=== PATIENT | male | born 1940 | race Caucasian/White ===

== ENCOUNTER 2021-01-26 14:04 | Outpatient (CLI) | payer OTHER, SELFPAY ==
--- NOTE | ~2021-01-26 | US_ITS ---
US art doppler w press LE BI INDICATION: Peripheral vascular disease. TECHNIQUE: Segmental pressures and plethysmographic and Doppler waveforms of the brachial and lower e xtremity arteries were obtained. COMPARISON: None. FINDINGS: Right and left brachial artery pressures of 141 mm Hg and 158 mm Hg, respectively, are concordant (no rmal difference <= 30 mmHg). The right ankle-brachial index (YVES) is 0.53 (normal >= 0.9-1.0). The right great toe-brachial index (TBI) is 0.46 (normal >= 0.60). The left YVES is 0.6. The left TBI is 0.47. IMPRESSION: 1. Diminished bilateral ankle and toe brachial indices, consistent with moderate peripheral arterial disease. Reviewed, dictated and finalized at location A. IMPRESSION: 1. Diminished bilateral ankle and toe brachial indices, consistent with moderat e peripheral arterial disease.
== END 2021-01-26 14:05 | disposition home or self-care (01) ==
PROVIDERS: PCP Emergency Medicine; Visit Provider Emergency Medicine
DX: I73.9 Peripheral vascular disease, unspecified (principal)
CPT/HCPCS: 93923

== ENCOUNTER 2021-06-25 18:20 | Inpatient (IN) | payer OTHER, SELFPAY ==
[2021-06-25] VITALS (15 sets, daily range): BP systolic 124–142; BP diastolic 58–79; PULSE 101–129; RESP 21–48; TEMP 39.6; O2SAT 89–100
--- NOTE | ~2021-06-25 | CT_ITS ---
EXAMINATION: CTA chest PE protocol DATE: 06/25/2021 20:24 INDICATION: Sudden onset of shortness of breath. Hypoxia. TECHNIQUE: Computed tomography angiography (CTA) of the chest was performed with 100 mL Omnipaque-350 intravenous contrast timed to evaluate the pulmonary arteries. Coronal maximum intensity projection 3D-reconstructions were created by the technologist. Automated exposure control and iterative reconst ruction technique were employed. Exam dose: 621.97 mGy-cm total exam DLP. COMPARISON: 06/25/2021 portable AP chest FINDINGS: There is diagnostic contrast enhancement of the pulmonary arteries and no evidence of pulmo nary embolism. No thoracic aortic aneurysm or dissection. Normal heart size. No pericardial or pleural effusion. Emphysematous changes of the lungs. Mild bilateral apical scarring. There is scattered discoid atelec tasis or scarring. No pulmonary consolidation. Large hiatal hernia. Approximately 1.8 cm cyst or possible hemangioma of the posterior aspect of the medial segment of the left lobe of the liver There is diffuse osteopenia. IMPRESSION: Emphysema No evidence of pulmonary embolism Reviewed, dictated and finalized at Location A. Reviewed, dictated and finalized at location A.
--- NOTE | ~2021-06-25 | XR_ITS ---
XR chest 1V portable DATE: 06/25/2021 18:55 INDICATION: Fever. Difficulty breathing. TECHNIQUE: Portable upright AP chest on 06/25/2021 at 1849 hours COMPARISON: 06/02/2013 two-view chest FINDINGS: Bilateral hyperinflation. No pulmonary infiltrate or consolidation, pleural effusion or pul monary or pneumothorax. Bilateral apical scarring. Normal heart size. Aortic arch calcification. Moderately large hiatal hernia. Diffuse osteopenia. IMPRESSION: No active cardiopulmonary disease Aortic calcification Moderately large hiatal hernia Osteopenia Reviewed, dictated and finalized at location A.
--- NOTE | ~2021-06-25 | CT_ITS ---
EXAMINATION: CT brain wo con DATE: 06/25/2021 20:24 INDICATION: Fall. Head injury. TECHNIQUE: Computed tomography (CT) of the head was performed without intravenous contrast. The mA wa s adjusted according to patient size. Iterative reconstruction technique was employed. Exam dose: 60 5.33 mGy-cm total exam DLP. COMPARISON: None FINDINGS: No intracranial mass lesion or hemorrhage or cerebrovascular accident. No midline shift or mass affect. Bilateral carotid siphon internal carotid artery calcifications. There is nonspecific diminished attenuation cerebral white matter, likely due to chronic small vessel ischemic changes. No subdural or epidural hematoma is detected. There is mild soft tissue thickening of the ethmoid air cells. There is a small fluid level in the le ft maxillary sinus. The included paranasal sinuses and mastoid air cells are otherwise unremarkable. No fracture or bone destruction of the cranial vault. IMPRESSION: Cerebral atherosclerosis and chronic small vessel ischemic changes of cerebral white mat ter No acute intracranial finding Reviewed, dictated and finalized at Location [facility]. Reviewed, dictated and finalized at location A. IMPRESSION: Cerebral atherosclerosis and chronic small vessel ischemic changes of cerebral white matter No acute intracranial finding
--- NOTE | ~2021-06-25 | XR_ITS ---
EXAMINATION: XR chest 1V portable INDICATION: Increased oxygen TECHNIQUE: Portable AP chest at 0514 hours COMPARISON: 06/25/2021 FINDINGS: There is mild atelectasis of the lung bases. The lungs are free of acute opacities. There i s no pleural effusion or pneumothorax. A large hiatal hernia is noted. The heart size is normal. IMPRESSION: 1. Mild atelectasis of the lung bases. Reviewed, dictated and finalized at location A.
--- NOTE | ~2021-06-25 | CT_ITS ---
EXAMINATION: CT abdomen pelvis w con EXAM DATE: 06/29/2021 12:45 INDICATION: E coli bacteremia, source unknown by history/exam. TECHNIQUE: Spiral CT of the abdomen and pelvis was performed following intravenous injection of 100 m L Omnipaque 350. Axial, coronal and sagittal images of the abdomen and pelvis were reviewed. The do se-length product (DLP) for this examination was 362.16 mGy-cm. The exposure was tailored according to patient size (auto mA exposure control), and iterative reconstruction (ASIR) was used as additiona l dose reduction technique. There is no prior study for comparison. FINDINGS: In the left liver lobe medial segment adjacent to the gallbladder fossa there is multi locu lated cystic region measuring 3 cm. This could be a small hepatic abscess with loculations particular ly given the history provided. Cystic liver tumor also in the differential diagnosis. There are gall stones within an otherwise unremarkable gallbladder. No evidence of obstructive biliary disease. There is mid abdominal aortic aneurysm up to 4.4 cm. This is below the renal arteries. Caliber normal izes from the iliac bifurcation. Portal and splenic veins are patent. Kidneys enhance symmetrically. There is no hydronephrosis. The prostate is unremarkable. The bladder is collapsed with Catalan ca theter balloon anchor inside. There is no retroperitoneal or pelvic lymphadenopathy. There is mode rate scattered arteriosclerotic disease. The appendix is normal. There is a moderate to large gastroesophageal hiatal hernia. There is expe cted amount of colonic stool. No free intraperitoneal gas. Small right pleural effusion. Adjacent subsegmental atelectasis. Moderate emphysema. Hyperinflation. There are no osteoblastic or osteolyt ic lesions identified. IMPRESSION: 1. Small multiloculated left liver lobe region most consistent with hepatic abscess. Cystic cancer n ot excludable. 2. 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 3. Moderate to large gastroesophageal hiatal hernia. 4. Emphysema and hyperinflation. Reviewed, dictated and finalized at location B. IMPRESSION: 1. Small multiloculated left liver lobe region most consistent with hepatic ab scess. Cystic cancer not excludable. 2. 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 3. Moderate to large gastroesophageal hiatal hernia. 4. Emphysema and hyperinflation.
--- NOTE | 2021-06-25 18:30 | ECG_ITS ---
Measurements Intervals [place] Rate: 72 P: 88 MO: 129 QRS: 201 QRSD: 121 T: 61 QT: 334 QTc: 367 Interpretive Statements SINUS TACHYCARDIA RIGHT BUNDLE BRANCH BLOCK LEFT POSTERIOR FASCICULAR BLOCK BASELINE ARTIFACT- I, II, AVR, AVF, V3-V6 ABNORMAL ECG Electronically Signed On 06-25-2021 20:19:11 CDT by Parker Mcgowan D.O.
[2021-06-25 18:59] LABS: Alveolar/Arterial O2 Gradient 125.4 mmHg; Base Excess ABG -2.2 mEq/l (+/-2.0); Carboxyhemoglobin 1.2 % THb (0-2.0); Fractional Inspired Oxygen 36 %; HCO3 ABG 21.3 mEq/l (22.0-26.0); Methemoglobin ABG 0.2 %THb (0-1.5); Oxygen Content ABG 18.4 %vol (16.0-22.0); Oxygen Saturation ABG 97.3 % (95.0-100.0); Oxyhemoglobin 95.7 % THb (90.0-100.0); PCO2 ABG 33.2 mmHg (35.0-45.0); PO2 ABG 92.8 mmHg (80.0-100.0); PO2 FiO2 Ratio Arterial Blood 2.58 %; Reduced Hemoglobin 2.9 %THb (0-5.0); Total Hemoglobin 13.6 g/dL (12.0-18.0); pH ABG 7.426 (7.350-7.450)
[2021-06-25 19:01] LABS: Device NASAL CANNULA; Hematocrit 41.9 % (42.0-52.0); Mean Corpuscular Hemoglobin 26.4 pg (26-34); Mean Corpuscular Volume 85.2 fl (80-100); Mean Platelet Volume 9.3 fl (7.4-10.4); Modified Allen's Test Pass; Platelet Count Result 148 k/mm3 (150-375); Red Blood Count 4.92 M/mm3 (4.6-6.20); Red Cell Distribution Width 14.9 % (11.5-14.5); Site Drawn RIGHT RADIAL; White Blood Count 7.9 K/mm3 (4.5-10.0)
[2021-06-25] MEDS: ALBUTEROL SULFATE NEB 2.5 MG/0.5 ML INH 10 MG INHALATION (19:09)
[2021-06-25] MEDS: IPRATROPIUM BR 0.02% INH SOLN 0.5 MG/2.5 ML VIAL 1 MG INHALATION (19:09)
[2021-06-25 19:13] LABS: Alanine Aminotransferase 181 U/L (4-50); Albumin Level 4.1 g/dL (3.5-5.1); Alkaline Phosphatase 191 U/L (38-126); Anion Gap 11 mmol/L (8-16); Aspartate Amino Transferase 99 U/L (17-59); Bilirubin,Total 0.9 mg/dL (0.2-1.3); Blood Urea Nitrogen 13 mg/dL (9-20); Calcium 9.4 mg/dL (8.4-10.2); Carbon Dioxide 25 mmol/L (22-30); Chloride 104 mmol/L (98-107); Estimated CRCL calculation 54 ml/min; Estimated Glomerular Filt Rate > 60; Glucose 158 mg/dL (65-110); Potassium 4.5 mmol/L (3.4-5.0); Sodium 140 mmol/L (137-145)
[2021-06-25 19:14] LABS: Lactic Acid Reflex 2.1 mmol/L (0.7-2.1)
[2021-06-25 19:15] LABS: Glucose Point of Care 167 mg/dl (65-105)
[2021-06-25 19:17] LABS: Partial Thromboplastin Time 27.9 SECONDS (22.3-36.8); Prothrombin Time 12.6 Seconds (11.1-14.7)
[2021-06-25 19:21] LABS: CRP 2.6 mg/dL (<1.0)
[2021-06-25] MEDS: ONDANSETRON INJ 4 MG/2 ML VIAL IV PUSH (19:24)
[2021-06-25] MEDS: SODIUM CHLORIDE 0.9% IV 1,000 ML 999 ML IV CONT (19:24)
[2021-06-25 19:29] LABS: NT Pro B Type Natriuretic Pept 229 pg/mL (5-100)
[2021-06-25 19:30] LABS: Band Neutrophils Percent 19 % (0-6); Lymphocytes Absolute Manual 0.23 K/mm3 (1.1-4.5); Monocytes Absolute Manual 0.07 K/mm3 (0.1-0.90); Monocytes Percent Manual 1 % (3-9); Neutrophils Absolute Manual 7.58 K/mm3 (1.3-6.7); Neutrophils Percent Manual 77 % (46-73); Total Cells Counted 100; Troponin I < 0.012 ng/mL (0.000-0.034)
[2021-06-25 19:31] LABS: Hypochromasia 1+ (NORMAL)
[2021-06-25 19:32] LABS: Anisocytosis 1+ (NORMAL)
--- NOTE | 2021-06-25 20:15 | ED.SOB ---
HPI - SOB/Dyspnea General Chief Complaint: Shortness of Breath/Dyspnea Stated Complaint: feel cold, prone on floor, dif breathing, shallow Time Seen by Provider: 06/25/21 18:24 Source: patient, EMS and RN notes reviewed Mode of arrival: EMS Limitations: clinical condition History of Present Illness HPI Narrative: This is an 80 year old male who presents from an assisted living for shortness of breath and weakness. Patient reports sudden onset shortness that started this afternoon. He states he felt so weak that he sat down on the floor. EMS reports they found patient laying in prone position complaining about weakness and coldness. He was found to be 89% on room air on EMS arrival , so he was placed on 4 L NC. He denies chest pain, cough, headache , vomiting, diarrhea. He reports leg swelling but he is unable to describes anything about it . Related Data Allergies Allergy/AdvReac Type Severity Reaction Status Date / Time No Known Allergies Allergy Verified 06/25/21 18:34 Review of Systems Review of Systems: All systems reviewed & are unremarkable except as noted in HPI and below PMFSH Past Medical History Medical History (Updated 06/26/21 @ 00:27 by Annamaria Barajas MD) COPD (chronic obstructive pulmonary disease) Peripheral vascular disease Vitamin D deficiency disease Family History Family History Father Cerebrovascular accident, Onset Age: 74 Social History Social History Years smoked: 40 Smoking status: Light tobacco smoker Tobacco type: cigarettes Second hand tobacco smoke exposure: No Additional smoking assessment comments: Only smokes 1 cigarette every couple days Alcohol intake: never Substance use: never Spiritual care concerns: No Exam Const: General: alert and ill appearing Orientation/consciousness: patient oriented x3 Eyes: EOM: EOMs intact bilaterally Chest: Chest palpation & inspection: normal inspection of the chest Resp: Effort & Inspection: tachypneic Auscultation: breath sounds absent Cardio: Rate: tachycardic Rhythm: regular rhythm Heart sounds: no murmurs GI: GI Palp: Yes Soft to palpation, No Tenderness to palpation present (GI) and No Guarding due to palpation present (GI) Auscultation: normal bowel sounds Neuro: General: patient oriented x3 and moves all extremities Extrem: Other: right lower extremity edema Course Reevaluation(s) Reevaluation #1: Patient reports he feels better. He is still mildly tachypneic with more air movement. He has faint diffuse expiratory wheezing now. Date: 06/25/21 Time: 20:35 Consultations Consultation #1: I Discussed with Dr. Sanders about patient. PAtient had fever with no source. He appears to be having COPD exacerbation and she accepts patient for admission. She agrees with management. Date: 06/25/21 Time: 21:05 Vital Signs Vital signs: Vital Signs Temperature 103.2 F H 06/25/21 18:23 Pulse Rate 126 H 06/25/21 18:23 Respiratory Rate 42 H 06/25/21 18:23 Blood Pressure 142/76 H 06/25/21 18:23 Pulse Oximetry 98 06/25/21 18:23 Temperature 98.9 F 06/26/21 00:00 Pulse Rate 113 H 06/26/21 00:00 Respiratory Rate 18 06/26/21 00:00 Blood Pressure 141/53 H 06/26/21 00:00 Pulse Oximetry 94 06/26/21 00:00 MDM - SOB/Dyspnea Lab Data Attestation: I reviewed the patient's lab results. Result diagrams: 06/25/21 18:55 06/25/21 18:55 Labs: Lab Results 06/25/21 06/25/21 06/25/21 Range/Units 18:25 18:55 18:55 WBC 7.9 (4.5-10.0) K/mm3 RBC 4.92 (4.6-6.20) M/mm3 Hgb 13.0 L (14.0-18.0) g/dL Hct 41.9 L (42.0-52.0) % MCV 85.2 (80-100) fl MCH 26.4 (26-34) pg MCHC 31.0 L (32-36) g/dl RDW 14.9 H (11.5-14.5) % Plt Count 148 L (150-375) k/mm3 MPV 9.3 (7.4-10.4) fl Immature Gran % (Au
[2021-06-25] MEDS: methylPREDNISolone SOD SUCC 125 MG VIAL IV PUSH (20:49)
[2021-06-25] MEDS: ALBUTEROL SULFATE NEB 2.5 MG/0.5 ML INH 5 MG INHALATION (21:25)
[2021-06-25 21:59] LABS: Reflex Lactic Acid Yes or No Add Lactic
--- NOTE | 2021-06-25 22:40 | PC.NURSE ---
This patient, Sp Bray, was admitted to IMU Room 204-01 on 06/25/21 at 2230. Patient/family oriented to hospital policies and general routines including ID bracelet, bed and alarms, visiting hours, pain management, procedures, bathroom and other care routines, personal items, smoking policy, room service/diet, and visiting hours. Information on how to activate the Rapid Response Team has been discussed. Patient/Family are encouraged to report perceived risks to care and to ask questions if they do not understand what they are told or what they should do.
[2021-06-25] MEDS: SODIUM CHLORIDE 0.9% IV 1,000 ML 125 ML IV CONT (23:11)
[2021-06-25 23:19] LABS: Lactic Acid 3.2 mmol/L (0.7-2.1)
[2021-06-25 23:20] LABS: Add Urine Microscopic? YES; Appearance Urine Clear (Clear); Bacteria Urine Trace /hpf; Bilirubin Urine Negative (Negative); Blood Urine Negative (Negative); Color Urine Yellow (Yellow); Glucose Urine UA Negative (Negative); Ketones Urine Trace mg/dL (Negative); Leukocyte Esterase Ur Negative LEU/UL (Negative); Mucus Urine Rare /lpf; Nitrate Urine Negative (Negative); Protein Urine 1+ mg/dL (Negative); Squamous Epithelial Cell Urine Rare /hpf (Few); Urobilinogen Urine Negative mg/dL (<2.0); WBC Urine 0-3 /hpf
[2021-06-25 23:21] LABS: Specific Grav Ur 1.005 (1.001-1.035)
[2021-06-26] VITALS (35 sets, daily range): BP systolic 109–177; BP diastolic 45–106; PULSE 84–132; RESP 16–40; TEMP 36.6–37.2; O2SAT 85–100
[2021-06-26] MEDS: ALBUTEROL SULFATE NEB 2.5 MG/0.5 ML INH 5 MG INHALATION ×2 (02:37→10:09)
[2021-06-26] MEDS: IPRATROPIUM BR 0.02% INH SOLN 0.5 MG/2.5 ML VIAL INHALATION ×5 (02:38→20:48)
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
[2021-06-26] MEDS: methylPREDNISolone SOD SUCC 125 MG VIAL IV PUSH (05:25)
[2021-06-26] MEDS: MORPHINE SULFATE (*CRX) 2 MG/ML INJ (05:25)
[2021-06-26] MEDS: MORPHINE SULFATE (*CRX) 2 MG/ML INJ IV PUSH (05:26)
[2021-06-26] MEDS: FUROSEMIDE INJ 40 MG/4 ML VIAL IV PUSH (05:27)
[2021-06-26 05:34] LABS: Glucose Point of Care 152 mg/dl (65-105)
[2021-06-26 05:35] LABS: Alveolar/Arterial O2 Gradient 553.3 mmHg; Base Excess ABG -5.9 mEq/l (+/-2.0); Device NON-REBREATHER MASK; Fractional Inspired Oxygen 100 %; HCO3 ABG 18.8 mEq/l (22.0-26.0); Methemoglobin ABG 0.3 %THb (0-1.5); Modified Allen's Test Pass; Oxygen Content ABG 18.3 %vol (16.0-22.0); Oxygen Saturation ABG 98.4 % (95.0-100.0); Oxyhemoglobin 97.4 % THb (90.0-100.0); PCO2 ABG 34.2 mmHg (35.0-45.0); PO2 ABG 125.5 mmHg (80.0-100.0); PO2 FiO2 Ratio Arterial Blood 1.25 %; Reduced Hemoglobin 2.3 %THb (0-5.0); Site Drawn RIGHT RADIAL; Total Hemoglobin 13.2 g/dL (12.0-18.0); pH ABG 7.357 (7.350-7.450)
--- NOTE | 2021-06-26 05:43 | PC.NURSE ---
06/26/21 at 0500....Heart rate noted to be in the 130s on the monitor. Went in to check the patient and he was complaining I can't breathe . Patient was cyanotic with an 02 sat of 85%. Rapid Response called. RT here for a stat nebulizer treatment, Morphine 2 mg IVP and Solumedrol 125mg IVP given per Dr. Sanders's order. Dr Sanders is in the room. Stat portable chest xray done. Oxygen applied and the o2 sat improved to 100% Additional Morphine 2mg IVP given per order. IV fluids have been stopped and a sandhu catheter inserted with 200cc urine out initially.
--- NOTE | 2021-06-26 05:50 | PC.NURSE ---
Patient resting more comfortably. O2 sat 100% on a non rebreather. I called Marleni (daughter) and explained to her at length what is happening. All questions answered and I will call her back with an update. Discussed intubation with patient and daughter and both are agreeable if it needs to be done. B/P 116/45, sinus tach 118. Will continue to monitor closely in the IMU.
--- NOTE | 2021-06-26 06:41 | PC.NURSE ---
I called Marleni (daughter) with an update and answered all questions.
[2021-06-26 08:22] LABS: Alanine Aminotransferase 121 U/L (4-50); Albumin Level 3.5 g/dL (3.5-5.1); Alkaline Phosphatase 150 U/L (38-126); Anion Gap 8 mmol/L (8-16); Aspartate Amino Transferase 52 U/L (17-59); Bilirubin,Total 0.9 mg/dL (0.2-1.3); Blood Urea Nitrogen 16 mg/dL (9-20); Calcium 8.5 mg/dL (8.4-10.2); Carbon Dioxide 25 mmol/L (22-30); Chloride 105 mmol/L (98-107); Estimated CRCL calculation 49 ml/min; Estimated Glomerular Filt Rate > 60; Glucose 138 mg/dL (65-110); Potassium 3.8 mmol/L (3.4-5.0); Sodium 138 mmol/L (137-145)
[2021-06-26 08:25] LABS: Hemoglobin 11.5 g/dL (14.0-18.0); Mean Corpuscular HGB Conc 31.1 g/dl (32-36); Mean Corpuscular Hemoglobin 26.2 pg (26-34); Mean Corpuscular Volume 84.3 fl (80-100); Mean Platelet Volume 9.9 fl (7.4-10.4); Platelet Count Result 117 k/mm3 (150-375); Red Blood Count 4.39 M/mm3 (4.6-6.20); White Blood Count 14.1 K/mm3 (4.5-10.0)
[2021-06-26 09:18] LABS: Band Neutrophils Percent 11 % (0-6); Eosinophils Absolute Manual 0.14 K/mm3 (0.02-0.5); Eosinophils Percent Manual 1 % (0-4); Lymphocytes Absolute Manual 0.14 K/mm3 (1.1-4.5); Monocytes Absolute Manual 0.14 K/mm3 (0.1-0.90); Monocytes Percent Manual 1 % (3-9); Neutrophils Absolute Manual 13.67 K/mm3 (1.3-6.7); Neutrophils Percent Manual 86 % (46-73); Total Cells Counted 100
[2021-06-26 09:22] LABS: Platelet Estimate Decreased (Adequate)
[2021-06-26] MEDS: PANTOPRAZOLE 40 MG TABLET PO (09:49)
--- NOTE | 2021-06-26 10:19 | PM.CNPUL ---
Assessment and Plan Assessment and plan (1) Acute exacerbation of chronic obstructive airways disease: Code(s): J44.1 - Chronic obstructive pulmonary disease with (acute) exacerbation Status: Acute Assessment and Plan: Patient carries a diagnosis of COPD, former tobacco user with 46 pack year history, CT angiogram with mild centrilobular emphysema on 06/25/2021 who is maintained on Spiriva as an outpatient with no recent exacerbations and no respiratory limitations in his activities of daily living. Patient presents now with chills, hypoxia but denies shortness of breath, change in phlegm production or change in phlegm color. CT angiogram is negative for PE. He does have mild centrilobular emphysema. patient was treated for possible pneumonia with vancomycin, cefepime and azithromycin on 06/25 and now states he is feeling back to normal. I have weaned his oxygen down to room air and a saturations were 95%. Cultures are negative. His COVID test is pending. He has no evidence of hypercarbic respiratory failure with his presentation blood gas of 7.42/33/93 on 4 L nasal cannula. patient tells me today that he is back to his baseline. At this time I agree with treatment for COPD exacerbation and possible pneumonia with steroids and I will change his Solu-Medrol to prednisone 40 mg p.o. q.day today, I will continue albuterol 2.5 mg nebs q.4 hours and ipratropium 0.5 mg nebs q.4 hours. I will continue vanc, cefepime and azithromycin pending blood cultures. If cultures remain negative and patient is clinically at his baseline on 06/27 with a negative COVID test will consider discharge back to his facility on 06/27. Will follow with you. History of Present Illness History of Present Illness Consult date: 06/26/21 Reason for consult: COPD Chief complaint: COPD Exacerbation,Acute Respiratory Failure w/hypo Narrative: This is a new Pulmonary consult for COPD with hypoxemia 80-year-old man with a history of tobacco use quit 3 years ago, COPD on Spiriva, peripheral vascular disease status post stents to his leg, hyperlipidemia presented from his assisted living residency on 06/25 with chills and altered mental status. Patient states that he went to play bingo in the assisted living room on 06/25 and the room was very cold and he developed a chills. Patient went back to his room and he had rigors and sat on the floor. At that time patient denies any shortness of breath, cough, phlegm production, chest pains. EMS was called and his sats were 89% on room air and he was placed on 4 L nasal cannula. patient presented to the emergency department had a white blood cell count of 7.9, serum bicarbonate of 25, 4 L nasal cannula blood gas 7.42/33/93. Patient had a CT angiogram of the chest that showed no PE, mild to moderate centrilobular emphysema, no evidence of pulmonary edema no evidence of focal consolidation. Patient had a fever to 103 and was empirically started on vancomycin, cefepime and azithromycin for pneumonia from an assisted living facility. Patient is COVID test is pending. Patient was also treated with Solu-Medrol 60 q.6h, albuterol 5 mg nebs q.4 hours and ipratropium 0.5 mg nebs q.4 hours for possible COPD exacerbation. At baseline patient states that he is able to walk around his room and is limited only by leg pain from his peripheral vascular disease. Patient told me he has no respiratory limitations in his activities of daily living. Patient has no chronic cough and no chronic phlegm production. Patient has no hospitalizations ever for his breathing. Patient is maintained on Spiriva as an outpatient. Patient wears no home oxygen. Patient smoked tobacco at 3/4 pack per day from age [age] for total of 46 pack years. Patient denies vaping, illicit drug use, sandblasting, welding, and professional painting. 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 Brian
--- NOTE | 2021-06-26 10:21 | PM.IMPN ---
Progress Note: A&P Assessment and Plan (1) Acute exacerbation of chronic obstructive airways disease: Code(s): J44.1 - Chronic obstructive pulmonary disease with (acute) exacerbation Status: Acute Assessment and Plan: ADMIT TO REGULAR MEDICAL FLOOR BREATHING TREATMENTS TRYING CARE OXYGEN SATURATION ON AT 92% (2) Person under investigation for COVID-19: Code(s): Z20.822 - Contact with and (suspected) exposure to COVID-19 Status: Acute Assessment and Plan: SEROLOGY IS PENDING (3) SIRS (systemic inflammatory response syndrome): Code(s): R65.10 - Systemic inflammatory response syndrome (SIRS) of non-infectious origin without acute organ dysfunction Status: Acute Assessment and Plan: PATIENT HAS BEEN PLACED ON [facility]O[employer] ANTIBIOTICS SEPSIS WORKUP IN PROGRESS CULTURES IN PROGRESS (4) Intermittent claudication: Code(s): I73.9 - Peripheral vascular disease, unspecified Status: Acute Assessment and Plan: STABLE (5) Peripheral vascular disease: Code(s): I73.9 - Peripheral vascular disease, unspecified Status: Acute Assessment and Plan: Will continue current plan of care and treatment. COVID test is pending. Will use BiPAP as needed. Pulmonary consult ordered. Repeat labs in the morning. Subjective Date/time seen: 06/26/21 10:21 Patient was seen during the morning rounds today. Mild shortness of breath, no chest pain. No abdominal pain, no nausea, no vomiting. Mood stable. Review of Systems Constitutional: Constitutional: Denies chills, Denies fatigue, Denies fever(s), Denies lethargy, Denies malaise and Reports weakness Eyes: Eyes: Denies change in vision ENT: Denies dysphagia, Denies nasal congestion, Denies nasal discharge, Denies nasal obstruction and Denies odynophagia Cardiovascular: Cardiovascular: Denies irregular heart rhythm, Denies claudication, Denies radiating jaw, neck or arm pain, Denies palpitations, Reports dyspnea, Denies dyspnea on exertion and Denies orthopnea Respiratory: Respiratory: Denies change in phlegm color, Denies excessive phlegm production, Reports dyspnea, Denies dyspnea on exertion and Denies wheezing Gastrointestinal: Gastrointestinal: Denies abdominal pain, Denies dysphagia, Denies dyspepsia, Denies heartburn, Denies diarrhea, Denies nausea, Denies odynophagia and Denies vomiting Genitourinary: Genitourinary: Reports no additional male genitourinary complaints Musculoskeletal: Musculoskeletal: Reports no additional musculoskeletal complaints Integumentary/Breasts: Skin/Breast: Reports system reviewed and no additional complaints, except as docu Neurologic: Reports system reviewed and no additional complaints, except as documented and Reports weakness Psychiatric: Psychiatric: Reports no additional psychiatric complaints Endocrine: Endocrine: Reports no additional endocrine complaints, Denies fatigue and Denies palpitations Hematologic/Lymphatic: Hematologic/Lymphatic: Reports no additional hematologic/lymphatic complaints Allergic/Immunologic: Allergic/Immunologic: Reports no additional allergic/immunologic complaints and Denies wheezing Exam Narrative: All review of systems are negative except as documented in the history and physical examination. Const: Nutritional Appearance: well nourished Objective Data Vital Signs Vital Signs: Vital Signs - 24 hr 06/25/21 18:23 06/25/21 18:40 06/25/21 18:43 Temperature 39.6 C H Pulse Rate 126 H 129 H 122 H Respiratory Rate 42 H 48 H Blood Pressure 142/76 H Pulse Oximetry 98 89 L 97 06/25/21 19:10 06/25/21 19:15 06/25/21 19:16 Temperature Pulse Rate 120 H 121 H Respiratory Rate 40 H Blood Pressure 142/79 H Pulse Oximetry 97 97 06/25/21 19:52 06/25/21 20:00 06/25/21 20:01 Temperature Pulse Rate 117 H Respiratory Rate 21 H Blood Pressure 124/58 L Pulse Oximetry 99 99 96 06/25/21 20:04 06/25/21
[2021-06-26] MEDS: predniSONE 20 MG TABLET 40 MG PO (12:57)
[2021-06-26] MEDS: ALBUTEROL SULFATE NEB 2.5 MG/0.5 ML INH INHALATION ×3 (13:03→20:48)
[2021-06-27] VITALS (18 sets, daily range): BP systolic 106–178; BP diastolic 44–80; PULSE 72–102; RESP 14–24; TEMP 36.3–36.9; O2SAT 94–100
[2021-06-27] MEDS: ALBUTEROL SULFATE NEB 2.5 MG/0.5 ML INH INHALATION ×3 (01:45→08:05)
[2021-06-27] MEDS: IPRATROPIUM BR 0.02% INH SOLN 0.5 MG/2.5 ML VIAL INHALATION ×3 (01:45→08:22)
[2021-06-27 04:47] LABS: Hematocrit 32.2 % (42.0-52.0); Hemoglobin 10.2 g/dL (14.0-18.0); Immature Platelet Fraction Pct 4.4 % (0.9-11.2); Mean Corpuscular HGB Conc 31.7 g/dl (32-36); Mean Corpuscular Hemoglobin 26.8 pg (26-34); Mean Corpuscular Volume 84.5 fl (80-100); Mean Platelet Volume 10.4 fl (7.4-10.4); Platelet Count Result 115 k/mm3 (150-375); Red Blood Count 3.81 M/mm3 (4.6-6.20); Red Cell Distribution Width 15.1 % (11.5-14.5); White Blood Count 15.9 K/mm3 (4.5-10.0)
[2021-06-27 05:02] LABS: Alanine Aminotransferase 83 U/L (4-50); Alkaline Phosphatase 110 U/L (38-126); Anion Gap 9 mmol/L (8-16); Aspartate Amino Transferase 31 U/L (17-59); Bilirubin,Total 0.3 mg/dL (0.2-1.3); Blood Urea Nitrogen 32 mg/dL (9-20); Calcium 8.1 mg/dL (8.4-10.2); Carbon Dioxide 23 mmol/L (22-30); Chloride 101 mmol/L (98-107); Estimated CRCL calculation 44 ml/min; Estimated Glomerular Filt Rate > 60; Glucose 406 mg/dL (65-110); Sodium 133 mmol/L (137-145)
--- NOTE | 2021-06-27 08:36 | PM.PNPUL ---
Progress Note: A&P Assessment and Plan (1) Acute exacerbation of chronic obstructive airways disease: Code(s): J44.1 - Chronic obstructive pulmonary disease with (acute) exacerbation Status: Acute Assessment and Plan: 06/26 Patient carries a diagnosis of COPD, former tobacco user with 46 pack year history, CT angiogram with mild centrilobular emphysema on 06/25/2021 who is maintained on Spiriva as an outpatient with no recent exacerbations and no respiratory limitations in his activities of daily living. Patient presents now with chills, hypoxia but denies shortness of breath, change in phlegm production or change in phlegm color. CT angiogram is negative for PE. He does have mild centrilobular emphysema. patient was treated for possible pneumonia with vancomycin, cefepime and azithromycin on 06/25 and now states he is feeling back to normal. I have weaned his oxygen down to room air and a saturations were 95%. Cultures are negative. His COVID test is pending. He has no evidence of hypercarbic respiratory failure with his presentation blood gas of 7.42/33/93 on 4 L nasal cannula. patient tells me today that he is back to his baseline. At this time I agree with treatment for COPD exacerbation and possible pneumonia with steroids and I will change his Solu-Medrol to prednisone 40 mg p.o. q.day today, I will continue albuterol 2.5 mg nebs q.4 hours and ipratropium 0.5 mg nebs q.4 hours. I will continue vanc, cefepime and azithromycin pending blood cultures. If cultures remain negative and patient is clinically at his baseline on 06/27 with a negative COVID test will consider discharge back to his facility on 06/27. 06/27 Patient again tells me clinically he feels back to normal. Blood cultures from 06/25 are with Gram-negative bacilli in 2 of 2 cultures. he is afebrile his white count is 15.9. Given he has no wheezes and respiratory complaints and now with Ecoli bacteremia and I have discontinued his prednisone. Possible sources include GI tract as patient tells me he had an episode of vomiting 3-4 times after eating lunch on 06/22 which was 3 days prior to admission. He denies any further abdominal complaints after this period. He had no white blood cell count on admission but did have a fever which is now resolved. He has no respiratory complaints and no focal infiltrates on his CT angiogram of the chest making Ecoli pneumonia very unlikely. Repeat blood cultures and will DC azithromycin and vanco for now. I will change his albuterol and ipratropium nebulizers to incruse ellipta 62.5 Q day for his COPD. COVID test pending. Discussed with Dr. Yang, will sign off, please call with questions. Subjective Date/time seen: 06/27/21 08:36 Interval history: 06/26/21 This is a new Pulmonary consult for COPD with hypoxemia 80-year-old man with a history of tobacco use quit 3 years ago, COPD on Spiriva, peripheral vascular disease status post stents to his leg, hyperlipidemia presented from his assisted living residency on 06/25 with chills and altered mental status. Patient states that he went to play bingo in the assisted living room on 06/25 and the room was very cold and he developed a chills. Patient went back to his room and he had rigors and sat on the floor. At that time patient denies any shortness of breath, cough, phlegm production, chest pains. EMS was called and his sats were 89% on room air and he was placed on 4 L nasal cannula. patient presented to the emergency department had a white blood cell count of 7.9, serum bicarbonate of 25, 4 L nasal cannula blood gas 7.42/33/93. Patient had a CT angiogram of the chest that showed no PE, mild to moderate centrilobular emphysema, no evidence of pulmonary edema no evidence of focal consolidation. Patient had a fever to 103 and was empirically started on vancomycin, cefepime and azithromycin for pneumonia from an assisted living facility. Patient is COVID test is
[2021-06-27] MEDS: PANTOPRAZOLE 40 MG TABLET PO (08:56)
[2021-06-27] MEDS: ENOXAPARIN 40 MG/0.4 ML SYRINGE SUB-Q (08:56)
[2021-06-27 13:27] LABS: Glucose Point of Care 289 mg/dl (65-105)
[2021-06-27] MEDS: UMECLIDINIUM BROMIDE 62.5 MCG ELLIPTA 1 PUFF INHALATION (14:45)
--- NOTE | 2021-06-27 15:56 | PM.IMPN ---
Progress Note: A&P Assessment and Plan (1) Acute exacerbation of chronic obstructive airways disease: Code(s): J44.1 - Chronic obstructive pulmonary disease with (acute) exacerbation Status: Acute Assessment and Plan: Currently no clinical evidence of cOPD exacerbation. May keep duoneb PRN. Resume home regimen. No pririva available on formulary; patient will be started on incruse ellipta (2) Person under investigation for COVID-19: Code(s): Z20.822 - Contact with and (suspected) exposure to COVID-19 Status: Acute Assessment and Plan: Rapid test negative. PCR pending. (3) SIRS (systemic inflammatory response syndrome): Code(s): R65.10 - Systemic inflammatory response syndrome (SIRS) of non-infectious origin without acute organ dysfunction Status: Acute Assessment and Plan: Patient was appropriately started on broad spectrum antibiotics. Now that his cultures are growing E coli we will de-escalate to cefepime only. Follow up sensitivities and repeat blood cultures for treatment duration. (4) Intermittent claudication: Code(s): I73.9 - Peripheral vascular disease, unspecified Status: Acute Assessment and Plan: Currently asymptomatic. Continue to monitor. (5) Peripheral vascular disease: Code(s): I73.9 - Peripheral vascular disease, unspecified Status: Acute Assessment and Plan: Will use BiPAP as needed. Pulmonary recommendations were reviewed. Follow up repeat blood cultures. Subjective Date/time seen: 06/27/21 10:15 Interval history: 06/27/21 This is an 80-year-old man with a history of tobacco use who quit 3 years ago, COPD on Spiriva, peripheral vascular disease status post stents to his leg, hyperlipidemia presented from his assisted living residency on 06/25 with chills and altered mental status. Patient states that he went to play bingo in the assisted living room on 06/25 and the room was very cold and he developed a chills. He later developed rigors. Patient is COVID test is pending. Patient was also treated with Solu-Medrol 60 q.6h, albuterol 5 mg nebs q.4 hours and ipratropium 0.5 mg nebs q.4 hours for possible COPD exacerbation. Patient never had any respiratory complaints and continues to deny any respiratory complaints. Patient has grown Ecoli in his blood cultures. Patient remains on room air with saturations 100%. S: Patient is feeling a lot better. No active complaints. Review of Systems Constitutional: Constitutional: Denies chills, Denies fatigue, Denies fever(s), Denies lethargy, Denies malaise and Reports weakness Eyes: Eyes: Denies change in vision ENT: Denies dysphagia, Denies nasal congestion, Denies nasal discharge, Denies nasal obstruction and Denies odynophagia Cardiovascular: Cardiovascular: Denies irregular heart rhythm, Denies claudication, Denies radiating jaw, neck or arm pain, Denies palpitations, Reports dyspnea, Denies dyspnea on exertion and Denies orthopnea Respiratory: Respiratory: Denies change in phlegm color, Denies excessive phlegm production, Reports dyspnea, Denies dyspnea on exertion and Denies wheezing Gastrointestinal: Gastrointestinal: Denies abdominal pain, Denies dysphagia, Denies dyspepsia, Denies heartburn, Denies diarrhea, Denies nausea, Denies odynophagia and Denies vomiting Genitourinary: Genitourinary: Reports no additional male genitourinary complaints Musculoskeletal: Musculoskeletal: Reports no additional musculoskeletal complaints Integumentary/Breasts: Skin/Breast: Reports system reviewed and no additional complaints, except as docu Neurologic: Reports system reviewed and no additional complaints, except as documented and Reports weakness Psychiatric: Psychiatric: Reports no additional psychiatric complaints Endocrine: Endocrine: Reports no additional endocrine complaints, Denies fatigue and Denies palpitations Hematologic/Lymphatic: Hematologic/Lymphatic: Reports no add
[2021-06-27 19:01] LABS: SARS-CoV-2 RNA PCR Negative
[2021-06-28] VITALS (9 sets, daily range): BP systolic 128–157; BP diastolic 56–84; PULSE 71–84; RESP 20–26; TEMP 35.8–37; O2SAT 90–100
[2021-06-28] MEDS: ALBUTEROL SULFATE (*SP) AEROSOL 1 PUFF 2 PUFF INHALATION ×2 (04:19→20:19)
[2021-06-28] MEDS: ACETAMINOPHEN 500 MG TABLET 1000 MG PO (05:10)
[2021-06-28] MEDS: UMECLIDINIUM BROMIDE 62.5 MCG ELLIPTA 1 PUFF INHALATION (08:50)
[2021-06-28] MEDS: ENOXAPARIN 40 MG/0.4 ML SYRINGE SUB-Q (09:02)
[2021-06-28] MEDS: PANTOPRAZOLE 40 MG TABLET PO (09:02)
--- NOTE | 2021-06-28 17:05 | PM.IMPN ---
Progress Note: A&P Assessment and Plan (1) Acute exacerbation of chronic obstructive airways disease: Code(s): J44.1 - Chronic obstructive pulmonary disease with (acute) exacerbation Status: Acute Assessment and Plan: Currently no clinical evidence of cOPD exacerbation. May keep duoneb PRN. Resume home regimen. No pririva available on formulary; patient will be started on incruse ellipta (2) Person under investigation for COVID-19: Code(s): Z20.822 - Contact with and (suspected) exposure to COVID-19 Status: Acute Assessment and Plan: Rapid test negative. PCR negative. (3) SIRS (systemic inflammatory response syndrome): Code(s): R65.10 - Systemic inflammatory response syndrome (SIRS) of non-infectious origin without acute organ dysfunction Status: Acute Assessment and Plan: Patient was appropriately started on broad spectrum antibiotics. Now that his cultures are growing pansensitive E coli we will continue cefepime only. Follow up repeat blood cultures for treatment duration. (4) Intermittent claudication: Code(s): I73.9 - Peripheral vascular disease, unspecified Status: Acute Assessment and Plan: Currently asymptomatic. Continue to monitor. (5) Peripheral vascular disease: Code(s): I73.9 - Peripheral vascular disease, unspecified Status: Acute Assessment and Plan: Will use BiPAP as needed. Pulmonary recommendations were reviewed. Follow up repeat blood cultures. Subjective Date/time seen: 06/28/21 17:05 Interval history: 06/27/21 This is an 80-year-old man with a history of tobacco use who quit 3 years ago, COPD on Spiriva, peripheral vascular disease status post stents to his leg, hyperlipidemia presented from his assisted living residency on 06/25 with chills and altered mental status. Patient states that he went to play bingo in the assisted living room on 06/25 and the room was very cold and he developed a chills. He later developed rigors. Patient is COVID test is pending. Patient was also treated with Solu-Medrol 60 q.6h, albuterol 5 mg nebs q.4 hours and ipratropium 0.5 mg nebs q.4 hours for possible COPD exacerbation. Patient never had any respiratory complaints and continues to deny any respiratory complaints. Patient has grown Ecoli in his blood cultures. Patient remains very comfortable on room air with saturations 100%. S: Patient is feeling a lot better. No active complaints. Review of Systems Constitutional: Constitutional: Denies chills, Denies fatigue, Denies fever(s), Denies lethargy, Denies malaise and Reports weakness Eyes: Eyes: Denies change in vision ENT: Denies dysphagia, Denies nasal congestion, Denies nasal discharge, Denies nasal obstruction and Denies odynophagia Cardiovascular: Cardiovascular: Denies irregular heart rhythm, Denies claudication, Denies radiating jaw, neck or arm pain, Denies palpitations, Reports dyspnea, Denies dyspnea on exertion and Denies orthopnea Respiratory: Respiratory: Denies change in phlegm color, Denies excessive phlegm production, Reports dyspnea, Denies dyspnea on exertion and Denies wheezing Gastrointestinal: Gastrointestinal: Denies abdominal pain, Denies dysphagia, Denies dyspepsia, Denies heartburn, Denies diarrhea, Denies nausea, Denies odynophagia and Denies vomiting Genitourinary: Genitourinary: Reports no additional male genitourinary complaints Musculoskeletal: Musculoskeletal: Reports no additional musculoskeletal complaints Integumentary/Breasts: Skin/Breast: Reports system reviewed and no additional complaints, except as docu Neurologic: Reports system reviewed and no additional complaints, except as documented and Reports weakness Psychiatric: Psychiatric: Reports no additional psychiatric complaints Endocrine: Endocrine: Reports no additional endocrine complaints, Denies fatigue and Denies palpitations Hematologic/Lymphatic: Hematologic/Lymphatic: Report
[2021-06-29] VITALS (9 sets, daily range): BP systolic 132–144; BP diastolic 55–71; PULSE 70–82; RESP 16–24; TEMP 36.2–36.9; O2SAT 94–96
[2021-06-29] MEDS: UMECLIDINIUM BROMIDE 62.5 MCG ELLIPTA 1 PUFF INHALATION (08:51)
--- NOTE | 2021-06-29 09:13 | PM.IMPN ---
Progress Note: A&P Assessment and Plan (1) Acute exacerbation of chronic obstructive airways disease: Code(s): J44.1 - Chronic obstructive pulmonary disease with (acute) exacerbation Status: Acute Assessment and Plan: Currently no clinical evidence of C exacerbation. Continue duoneb PRN. Resume home regimen. No spririva available on formulary; Patient will be started on incruse ellipta (2) SIRS (systemic inflammatory response syndrome): Code(s): R65.10 - Systemic inflammatory response syndrome (SIRS) of non-infectious origin without acute organ dysfunction Status: Acute Assessment and Plan: Patient was appropriately started on broad spectrum antibiotics. Now that his cultures are growing pansensitive E coli we will continue cefepime only. Follow up repeat blood cultures are negative. Consult ID for treatment duration. (3) Intermittent claudication: Code(s): I73.9 - Peripheral vascular disease, unspecified Status: Acute Assessment and Plan: Currently asymptomatic. Continue to monitor. (4) Peripheral vascular disease: Code(s): I73.9 - Peripheral vascular disease, unspecified Status: Acute Assessment and Plan: Will use BiPAP as needed. Pulmonary recommendations were reviewed. Follow up repeat blood cultures. Follow up ID for discharge plan. Subjective Date/time seen: 06/29/21 09:13 Interval history: 06/27/21 This is an 80-year-old man with a history of tobacco use who quit 3 years ago, COPD on Spiriva, peripheral vascular disease status post stents to his leg, hyperlipidemia presented from his assisted living residency on 06/25 with chills and altered mental status. Patient states that he went to play bingo in the assisted living room on 06/25 and the room was very cold and he developed a chills. He later developed rigors. Patient was also treated with Solu-Medrol 60 q.6h, albuterol 5 mg nebs q.4 hours and ipratropium 0.5 mg nebs q.4 hours for possible COPD exacerbation. Patient never had any respiratory complaints and continues to deny any respiratory complaints. Patient has grown pansensitive Ecoli in his blood cultures. Repeat cultures have been unrevealing. Patient remains very comfortable on room air with saturations 100%. S: Patient is feeling a lot better. No active complaints. Review of Systems Constitutional: Constitutional: Denies chills, Denies fatigue, Denies fever(s), Denies lethargy, Denies malaise and Reports weakness Eyes: Eyes: Denies change in vision ENT: Denies dysphagia, Denies nasal congestion, Denies nasal discharge, Denies nasal obstruction and Denies odynophagia Cardiovascular: Cardiovascular: Denies irregular heart rhythm, Denies claudication, Denies radiating jaw, neck or arm pain, Denies palpitations, Reports dyspnea, Denies dyspnea on exertion and Denies orthopnea Respiratory: Respiratory: Denies change in phlegm color, Denies excessive phlegm production, Reports dyspnea, Denies dyspnea on exertion and Denies wheezing Gastrointestinal: Gastrointestinal: Denies abdominal pain, Denies dysphagia, Denies dyspepsia, Denies heartburn, Denies diarrhea, Denies nausea, Denies odynophagia and Denies vomiting Genitourinary: Genitourinary: Reports no additional male genitourinary complaints Musculoskeletal: Musculoskeletal: Reports no additional musculoskeletal complaints Integumentary/Breasts: Skin/Breast: Reports system reviewed and no additional complaints, except as docu Neurologic: Reports system reviewed and no additional complaints, except as documented and Reports weakness Psychiatric: Psychiatric: Reports no additional psychiatric complaints Endocrine: Endocrine: Reports no additional endocrine complaints, Denies fatigue and Denies palpitations Hematologic/Lymphatic: Hematologic/Lymphatic: Reports no additional hematologic/lymphatic complaints Allergic/Immunologic: Allergic/Immunologic: Reports no additional allergic/immunologi
[2021-06-29] MEDS: ENOXAPARIN 40 MG/0.4 ML SYRINGE SUB-Q (09:32)
[2021-06-29] MEDS: PANTOPRAZOLE 40 MG TABLET PO (09:33)
[2021-06-29] MEDS: ALBUTEROL SULFATE (*SP) AEROSOL 1 PUFF 2 PUFF INHALATION (11:33)
--- NOTE | 2021-06-29 11:48 | PCOTNOTE ---
Addendum entered by JINA English 06/29/21 11:51: Attempted to see pt this AM for Occupational Therapy tx at 11:46am, however, pt was with the doctor at the time. Will attempt to see pt later today if able. Will continue per poc duration/frequency. Original Note: Attempted to see pt this AM for Occupational Therapy tx at 10:46am, however, pt was with the doctor at the time. Will attempt to see pt later today if able. Will continue per poc duration/frequency.
--- NOTE | 2021-06-29 12:00 | WPDINFPN2 ---
Progress Note: A&P Assessment and Plan (1) E. coli septicemia: Code(s): A41.51 - Sepsis due to Escherichia coli [E. coli] Status: Acute Assessment and Plan: E coli bacteremia, source unknown. REC Ctx # 1 (antibiotic #5). CT A/P. Reason for Catalan placement 06/26 is not documented, would remove once the underlying indication has been properly addressed. Subjective Date/time seen: 06/29/21 12:00 Objective Data Vital Signs Vital Signs: Vital Signs - 24 hr 06/28/21 13:08 06/28/21 16:44 06/28/21 20:00 Temperature 36.4 C 35.8 C L 36.2 C L Pulse Rate 76 71 84 Respiratory Rate 20 20 24 H Blood Pressure 128/56 L 155/68 H 157/69 H Pulse Oximetry 94 98 96 06/29/21 00:00 06/29/21 08:00 06/29/21 08:52 Temperature 36.2 C L 36.9 C Pulse Rate 82 75 77 Respiratory Rate 16 20 18 Blood Pressure 144/63 H 142/66 H Pulse Oximetry 96 94 06/29/21 08:53 Temperature Pulse Rate Respiratory Rate Blood Pressure Pulse Oximetry 94 Intake/Output Intake/Output: Intake & Output 06/26/21 06/27/21 06/28/21 06/29/21 23:59 23:59 23:59 23:59 Intake Total 1360 1080 1270 480 Output Total 1400 1075 1400 850 Balance -40 5 130 -321 Meds/Results Medications: Active Medications Generic Name Dose Route Start Last Admin Trade Name Freq PRN Reason Stop Dose Admin Albuterol 2 puff 06/26/21 03:25 06/29/21 11:33 Albuterol Sulfate (*Sp) Aerosol 1 Puff INHALATION 2 puff Q4-6H PRN Administration Shortness Of Breath Enoxaparin Sodium 40 mg 06/27/21 09:00 06/29/21 09:32 Enoxaparin 40 Mg/0.4 Ml Syringe SUB-Q 40 mg DAILY STARLA Administration Ondansetron HCl 4 mg 06/25/21 21:32 Ondansetron Inj 4 Mg/2 Ml Vial IV PUSH Q4H PRN Nausea Pantoprazole Sodium 40 mg 06/26/21 09:00 06/29/21 09:33 Pantoprazole 40 Mg Tablet PO 40 mg QAM STARLA Administration Umeclidinium [place] 1 puff 06/27/21 09:30 06/29/21 08:51 Umeclidinium [place] 62.5 Mcg Ellipta INHALATION 1 puff DAILYRT STARLA Administration Radiology Results: ITS Impressions Head CT 06/25/21 20:25 IMPRESSION: Cerebral atherosclerosis and chronic small vessel ischemic changes of cerebral white matter No acute intracranial finding Chest CTA 06/25/21 20:30 IMPRESSION: Emphysema No evidence of pulmonary embolism Chest X-Ray 06/26/21 08:44 IMPRESSION: 1. Mild atelectasis of the lung bases.
[2021-06-29 13:21] LABS: Basophils Percent Auto 0.1 % (0.2-1.2); Eosinophils Absolute Auto 0.1 K/mm3 (0-0.3); Hematocrit 39.2 % (42.0-52.0); Hemoglobin 12.1 g/dL (14.0-18.0); Immature Granulocyte Absolute 0.05 K/mm3 (0.00-0.031); Immature Granulocyte Percent A 0.7 % (0-0.5); Lymphocytes Absolute Auto 0.88 K/mm3 (0.9-3.2); Lymphocytes Percent Auto 12.8 % (18.3-44.2); Mean Corpuscular HGB Conc 30.9 g/dl (32-36); Mean Corpuscular Hemoglobin 26.7 pg (26-34); Mean Corpuscular Volume 86.5 fl (80-100); Mean Platelet Volume 9.9 fl (7.4-10.4); Monocytes Absolute Auto 0.4 K/mm3 (0.1-0.6); Monocytes Percent Auto 6.4 % (2.6-8.5); Neutrophils Absolute Auto 5.4 K/mm3 (1.3-6.7); Platelet Count Result 130 k/mm3 (150-375); Red Blood Count 4.53 M/mm3 (4.6-6.20); White Blood Count 6.9 K/mm3 (4.5-10.0)
[2021-06-29 13:31] LABS: Alanine Aminotransferase 38 U/L (4-50); Albumin Level 3.4 g/dL (3.5-5.1); Alkaline Phosphatase 95 U/L (38-126); Amylase 89 U/L (30-110); Aspartate Amino Transferase 18 U/L (17-59); Bilirubin,Total 0.6 mg/dL (0.2-1.3)
[2021-06-29 13:46] LABS: Hemoglobin A1C 7.5 % (<5.7)
--- NOTE | 2021-06-29 14:55 | CONS_ITS ---
DATE OF CONSULTATION: 06/29/2021 REASON FOR CONSULTATION: Bacteremia. HISTORY OF PRESENT ILLNESS: 80-year-old male who has macular degeneration and poor eyesight as a result. He also has chronic hearing loss. Dr. Franz did angiogram and stent graft in April of this year, right leg for claudication. Future similar procedure is planned for the left side but not on the schedule. He has no other prosthetic devices in place. He reports not having to be hospitalized since he was born. He does have a diagnosis of COPD. He lives in assisted living and presented here on June 25 with rigors resulting him sliding to the floor without syncope. He denies any shortness of breath and has had no cough nor sputum production. He denies any previous such episodes. He has been on no antibiotics in the last month for any purpose. Here he has been given cefepime and earlier on vancomycin as well. He has been on no immunosuppressants. ALLERGIES: NONE KNOWN. HABITS: One cigarette every several days. No alcohol. PRESENT MEDICATIONS: As above. PAST MEDICAL HISTORY: Vitamin D deficiency. Otherwise as above. No other chronic medical illnesses. REVIEW OF SYSTEMS: Easy bruisability. 14-point review otherwise negative. A Catalan catheter was placed 1 day after admission and remains in place now, but indication is not documented. The patient is unaware of why it was placed. FAMILY HISTORY: Not pertinent to his present illness. SOCIAL HISTORY: He is . He has a female friend who had a stroke in 2018, and he helps her with many activities of daily living. Presently, she is being supervised by the home staff. He does not drive. PHYSICAL EXAMINATION: GENERAL: This is an elderly male who appears his actual age. No acute distress. VITAL SIGNS: His temperature on arrival 39.6, has been afebrile since then, 75, 20, 94% on room air, 142/66. SKIN: No rashes. Warm and dry. EENT: Conjunctivae are normal. The pupils are equal, round, and reactive to light. The oropharynx, oral mucosa normal. NECK: No masses, thyromegaly, tenderness, or meningismus. LUNGS: Clear to auscultation and percussion. Good air entry. No wheezing. BACK: He has no CVAT. CARDIAC: Regular rate and rhythm. No murmur, gallop, or rub. EXTREMITIES: Pulses are trace and equal at the dorsalis pedis. Radial pulses 1+ and equal. ABDOMEN: No bruits. Nontender. No masses. No organomegaly. EXTREMITIES: No clubbing, cyanosis, or edema. CHEST: No indwelling vascular devices. LABORATORY DATA: Blood cultures from admission relatively susceptible E coli. Urine culture collected the following evening, final no growth. Blood cultures collected 2 days ago, no growth so far. White count on admission 7.9, up to 14.1 following day and 2 days ago higher still at 15.9; hemoglobin 10.2; platelets are 115. Earlier differential with a left shift. He has hyponatremia. BUN 32, creatinine 1.1, glucose 406, up from 158 on admission. Lactate was high, not rechecked. Transaminases declining toward normal. CRP 2.6. There is no hemoglobin A1c done. He has 3 to 5 red cells, 1+ protein, otherwise urinalysis normal. Coronavirus assay nonreactive. RADIOLOGY: CT of the chest and chest x-ray taken together, hiatal hernia, suspected hemangioma of the liver, emphysema changes, otherwise normal. ASSESSMENT: 1. Escherichia coli bacteremia, source unknown. Urinary tract infection due to benign prostatic hypertrophy is under consideration. Others under consideration include pulmonary, upper respiratory, primary bloodstream, endocarditis, lower GI, biliary tract, pancreatic. Unlikely skin, soft tissue, [employer]IL [employer]. 2. Hyperglycemia. He denies history of diabetes. 3. Leukocytosis because of the above. 4. Periphera
--- NOTE | 2021-06-29 15:59 | PC.NURSE ---
On 06/29/21, the student, Arielle CEJA [facility], provided care and completed [facility] documentation on this patient. I have reviewed the student's documentation and agree with the findings.
[2021-06-29 16:16] LABS: Add Urine Microscopic? YES; Appearance Urine Clear (Clear); Bilirubin Urine Negative (Negative); Blood Urine 1+ (Negative); Color Urine Yellow (Yellow); Glucose Urine UA Negative (Negative); Ketones Urine Negative (Negative); Leukocyte Esterase Ur Negative LEU/UL (NEGATIVE); Nitrate Urine Negative (Negative); Protein Urine Negative (Negative); Urobilinogen Urine Negative mg/dL (<2.0)
[2021-06-30] VITALS (8 sets, daily range): BP systolic 127–159; BP diastolic 58–68; PULSE 74–83; RESP 18–24; TEMP 36.6–37.4; O2SAT 94–97
[2021-06-30] MEDS: PANTOPRAZOLE 40 MG TABLET PO (08:30)
[2021-06-30] MEDS: ENOXAPARIN 40 MG/0.4 ML SYRINGE SUB-Q (08:30)
[2021-06-30] MEDS: UMECLIDINIUM BROMIDE 62.5 MCG ELLIPTA 1 PUFF INHALATION (08:44)
--- NOTE | 2021-06-30 11:20 | PM.IMPN ---
Progress Note: A&P Assessment and Plan (1) Acute exacerbation of chronic obstructive airways disease: Code(s): J44.1 - Chronic obstructive pulmonary disease with (acute) exacerbation Status: Acute Assessment and Plan: Currently no clinical evidence of COPD exacerbation. Continue duoneb PRN. Resume home regimen. No spririva available on formulary; Patient will be started on incruse ellipta (2) SIRS (systemic inflammatory response syndrome): Code(s): R65.10 - Systemic inflammatory response syndrome (SIRS) of non-infectious origin without acute organ dysfunction Status: Acute Assessment and Plan: Patient was appropriately started on broad spectrum antibiotics. Now that his cultures are growing pansensitive E coli we have continued cefepime only. Follow up repeat blood cultures are negative. Follow up ID for treatment duration. (3) Intermittent claudication: Code(s): I73.9 - Peripheral vascular disease, unspecified Status: Acute Assessment and Plan: Currently asymptomatic. Continue to monitor. (4) Peripheral vascular disease: Code(s): I73.9 - Peripheral vascular disease, unspecified Status: Acute Assessment and Plan: Will use BiPAP as needed. Pulmonary recommendations were reviewed. Follow up repeat blood cultures. Follow up ID for discharge plan. Subjective Date/time seen: 06/30/21 11:20 Interval history: S: Patient is feeling a lot better. No active complaints. Review of Systems Constitutional: Constitutional: Denies chills, Denies fatigue, Denies fever(s), Denies lethargy, Denies malaise and Reports weakness Eyes: Eyes: Denies change in vision ENT: Denies dysphagia, Denies nasal congestion, Denies nasal discharge, Denies nasal obstruction and Denies odynophagia Cardiovascular: Cardiovascular: Denies irregular heart rhythm, Denies claudication, Denies radiating jaw, neck or arm pain, Denies palpitations, Reports dyspnea, Denies dyspnea on exertion and Denies orthopnea Respiratory: Respiratory: Denies change in phlegm color, Denies excessive phlegm production, Reports dyspnea, Denies dyspnea on exertion and Denies wheezing Gastrointestinal: Gastrointestinal: Denies abdominal pain, Denies dysphagia, Denies dyspepsia, Denies heartburn, Denies diarrhea, Denies nausea, Denies odynophagia and Denies vomiting Genitourinary: Genitourinary: Reports no additional male genitourinary complaints Musculoskeletal: Musculoskeletal: Reports no additional musculoskeletal complaints Integumentary/Breasts: Skin/Breast: Reports system reviewed and no additional complaints, except as docu Neurologic: Reports system reviewed and no additional complaints, except as documented and Reports weakness Psychiatric: Psychiatric: Reports no additional psychiatric complaints Endocrine: Endocrine: Reports no additional endocrine complaints, Denies fatigue and Denies palpitations Hematologic/Lymphatic: Hematologic/Lymphatic: Reports no additional hematologic/lymphatic complaints Allergic/Immunologic: Allergic/Immunologic: Reports no additional allergic/immunologic complaints and Denies wheezing Exam Narrative: All review of systems are negative except as documented in the history and physical examination. Const: General: comfortable and no acute distress Nutritional Appearance: well nourished Eyes: General: appearance normal, both eyes and all related structures Neck: Neck: no JVD Resp: Auscultation: clear to auscultation bilaterally, no crackles, no rales and no rhonchi Cardio: Rate: regular rate Rhythm: regular rhythm Heart sounds: no gallops, no murmurs and no rubs GI: Inspection: non-distended Auscultation: normal bowel sounds Skin: General skin exam: normal color and rashes and/or lesions noted Neuro: Cognition (Neuro): normal cognition Psych: Mental Status: mental status grossly normal Affect: normal affect Objective Data Vital Signs Vital Signs: Vital
--- NOTE | 2021-06-30 13:11 | WPDINFPN2 ---
Progress Note: A&P Assessment and Plan (1) E. coli septicemia: Code(s): A41.51 - Sepsis due to Escherichia coli [E. coli] Status: Acute Assessment and Plan: 1. E coli bacteremia, due to liver abscess (originally colon --> liver via portal circulation) 2. Hyperglycemia, with elevated A1C, suspect new onset Type 2 DM. 3. Normal amylase REC Ctx # 2 (antibiotic #6). Will need IV therapy current ceftriaxone, through 07/08/21. Poor candidate for home IV. Disc with geriatric case manager. Elective lower endoscopy if not done past 10 years, or if abnormal at last check. Subjective Date/time seen: 06/30/21 13:11 Interval history: no abd pain, no n/v Exam Narrative: afebrile Const: General: no acute distress Eyes: General: appearance normal, both eyes and all related structures Resp: Effort & Inspection: normal respiratory effort Auscultation: clear to auscultation bilaterally Cardio: Rate: regular rate Rhythm: regular rhythm Heart sounds: no murmurs GI: Inspection: non-distended GI Palp: Yes Soft to palpation and No Guarding due to palpation present (GI) Percussion: Yes normal to percussion Objective Data Vital Signs Vital Signs: Vital Signs - 24 hr 06/29/21 16:00 06/29/21 20:00 06/29/21 20:03 Temperature 36.8 C 36.7 C Pulse Rate 73 81 Respiratory Rate 20 20 Blood Pressure 132/71 141/55 H Pulse Oximetry 96 96 96 06/29/21 20:29 06/30/21 00:00 06/30/21 04:31 Temperature 36.6 C Pulse Rate 70 74 Respiratory Rate 18 18 Blood Pressure 132/58 L Pulse Oximetry 94 97 06/30/21 07:25 06/30/21 08:44 06/30/21 11:35 Temperature 36.6 C Pulse Rate 80 78 Respiratory Rate 18 24 H Blood Pressure 127/58 L 154/64 H Pulse Oximetry 96 94 97 06/30/21 12:05 Temperature Pulse Rate Respiratory Rate Blood Pressure 138/63 Pulse Oximetry Intake/Output Intake/Output: Intake & Output 06/27/21 06/28/21 06/29/21 06/30/21 23:59 23:59 23:59 23:59 Intake Total 1080 1270 1190 250 Output Total 1075 1400 2100 675 Balance 5 -130 -910 -425 Meds/Results Medications: Active Medications Generic Name Dose Route Start Last Admin Trade Name Freq PRN Reason Stop Dose Admin Albuterol 2 puff 06/26/21 03:25 06/29/21 11:33 Albuterol Sulfate (*Sp) Aerosol 1 Puff INHALATION 2 puff Q4-6H PRN Administration Shortness Of Breath Benzocaine 1 applic 06/30/21 11:13 Benzocaine 20% Dental Gel 9 Gm Tube BY MOUTH QID PRN Oral Pain Enoxaparin Sodium 40 mg 06/27/21 09:00 06/30/21 08:30 Enoxaparin 40 Mg/0.4 Ml Syringe SUB-Q 40 mg DAILY STARLA Administration Ceftriaxone Sodium/Dextrose 1 gm in 50 mls @ 100 mls/hr 06/29/21 12:00 06/30/21 11:47 Rocephin 1 Gm/D5w 50 Ml IVPB 100 mls/hr Q24H STARLA Administration Ondansetron HCl 4 mg 06/25/21 21:32 Ondansetron Inj 4 Mg/2 Ml Vial IV PUSH Q4H PRN Nausea Pantoprazole Sodium 40 mg 06/26/21 09:00 06/30/21 08:30 Pantoprazole 40 Mg Tablet PO 40 mg QAM STARLA Administration Umeclidinium [place] 1 puff 06/27/21 09:30 06/30/21 08:44 Umeclidinium [place] 62.5 Mcg Ellipta INHALATION 1 puff DAILYRT STARLA Administration Radiology Results: ITS Impressions Head CT 06/25/21 20:25 IMPRESSION: Cerebral atherosclerosis and chronic small vessel ischemic changes of cerebral white matter No acute intracranial finding Chest CTA 06/25/21 20:30 IMPRESSION: Emphysema No evidence of pulmonary embolism Chest X-Ray 06/26/21 08:44 IMPRESSION: 1. Mild atelectasis of the lung bases. Abdomen/Pelvis CT 06/29/21 12:49 IMPRESSION: 1. Small multiloculated left liver lobe region most consistent with hepatic abscess. Cystic cancer not excludable. 2. 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 3. Moderate to large gastroesophageal hiatal hernia. 4. Emphysema and hyperinflation. Labs Labs: Laboratory Results - last 24 hr 06/29/21 06/29/21 06/29/21 13:0
[2021-06-30] MEDS: LIDOCAINE HCL 1% LOCAL INJ 2 ML AMPUL 5 ML INFILTRATE (14:10)
--- NOTE | 2021-06-30 14:17 | PM.CNGS ---
Assessment and Plan Assessment and plan (1) Liver abscess: Code(s): K75.0 - Abscess of liver Status: Acute Assessment and Plan: CT scan reviewed and discussed with the patient in detail. There is evidence of a small multiloculated abscess at the left lobe of the liver abutting the gallbladder, which does contain stones. There is a possibility this could be related to acute cholecystitis, but there is no other evidence of cholecystitis on imaging. The patient really has not had any abdominal pain prior to his hospitalization, while he has been her, or on my exam. His abdominal exam is benign, and he is responding well to antibiotics. We would recommend to continue treating this conservatively with IV antibiotics per ID's recommendations. If intervention is needed, could consider percutaneous cholecystostomy tube placement. Will switch him to a low fat diet. Thank you for allowing us to see the patient in consultation and we will continue to follow along with you. (2) E. coli septicemia: Code(s): A41.51 - Sepsis due to Escherichia coli [E. coli] Status: Acute Assessment and Plan: Blood cultures 06/25/21 +E.coli. Repeat blood cultures 06/27/21 NGTD. Continue IV antibiotics per ID. Likely secondary to liver abscess. Plan for PICC line today for course of IV antibiotics. See plan above. (3) Cholelithiasis: Code(s): K80.20 - Calculus of gallbladder without cholecystitis without obstruction Status: Acute Assessment and Plan: Noted on CT scan. See plan above. (4) Acute exacerbation of chronic obstructive airways disease: Code(s): J44.1 - Chronic obstructive pulmonary disease with (acute) exacerbation Status: Acute Assessment and Plan: Improving. Continue supportive care per Pulmonology and Hospitalist. (5) Peripheral vascular disease: Code(s): I73.9 - Peripheral vascular disease, unspecified Status: Acute Assessment and Plan: Followed by vascular surgery. (6) AAA (abdominal aortic aneurysm): Code(s): I71.4 - Abdominal aortic aneurysm, without rupture Status: Chronic Assessment and Plan: CT measures infrarenal AAA 4.4 cm Additional Plan I have discussed the patient's case and plan of care with Dr. Arreguin. History of Present Illness Consult details Consult date: 06/30/21 Reason for consult: other (Abdominal CT with findings of liver abscess concerning possibly secondary to cholecystitis, E. coli bacteremia) Requesting physician: Kristan Yang MD Narrative: This is an 80 yo male with a history of COPD and peripheral vascular disease, who presented to the ER on 06/25/21 from assisted living for evaluation of shortness of breath and weakness. EMS found him lying prone on the floor with low O2 saturation. Once in the ED, he had a chest x-ray that showed no active cardiopulmonary disease, chest CTA that showed emphysema, and head CT with no acute intracranial findings. He was admitted to the Hospitalist and treated for COPD exacerbation, SIRS, and investigation of COVID-19, which resulted as negative. Blood cultures were drawn on admission and showed growth of E.Coli, which prompted an Infectious Disease consultation. He is currently on IV ceftriaxone per ID. Labs have showed mild leukocytosis, but his WBC has normalized. For investigation of the source of his bacteremia, a CT scan of the abdomen and pelvis was ordered and showed a multiloculated 3 cm abscess at the left lobe of the liver adjacent to the gallbladder fossa. The gallbladder contains small gallstones, no wall thickening, distention, or pericholecystic fluid. An addendum on the report suggests that there is discontinuation of the gallbladder wall abutting the abscess, suggesting this is possibly secondary to acute cholecystitis. Our service has now been consulted. Liver enzymes were elevated on admission, but have trended down to now normal. The patient's WBC count is normal today. He had a temperatu
--- NOTE | 2021-06-30 14:41 | PCPTNOTE ---
The patient treatment was not able to be completed today due to patient receiving PIC line. Will plan to continue treatment per plan of care.
--- NOTE | 2021-06-30 15:52 | PC.NURSE ---
On 06/30/21, the student, [Chriss Lopez ], provided care and completed [facility] documentation on this patient. I have reviewed the student's documentation and agree with the findings.
[2021-06-30] MEDS: BENZOCAINE 20% DENTAL GEL 9 GM TUBE 1 APPLIC BY MOUTH ×2 (16:00→21:11)
--- NOTE | 2021-06-30 17:55 | PC.NURSE ---
This patient, Sp Bray, was received from [[facility]] on 06/30/21 at 1755. Patient/family oriented to unit policies and routines
[2021-06-30] MEDS: SALINE LOCK FLUSH 10 ML IV PUSH (21:08)
--- NOTE | 2021-07-01 04:51 | PM.PNGS ---
Progress Note: A&P Assessment and Plan (1) Liver abscess: Code(s): K75.0 - Abscess of liver Status: Acute Assessment and Plan: exam cont to be benign, cont abx per ID, will need perc drain if worsens (2) Cholelithiasis: Code(s): K80.20 - Calculus of gallbladder without cholecystitis without obstruction Status: Acute Assessment and Plan: exam benign, tracey low fat diet, abx per ID (3) E. coli septicemia: Code(s): A41.51 - Sepsis due to Escherichia coli [E. coli] Status: Acute Assessment and Plan: likely related to liver abscess, repeat cx neg to date, cont abx per ID Subjective Subjective Date/Time Seen: 07/01/21 04:51 no acute issues overnight, tracey low fat diet for dinner, no pain Review of Systems Review of Systems: All systems reviewed & are unremarkable except as noted in HPI and below Exam Const: General: cooperative, comfortable and no acute distress Nutritional Appearance: average body habitus Orientation/consciousness: oriented to person and oriented to place Resp: Effort & Inspection: normal respiratory effort Auscultation: diminished lung sounds Cardio: Rate: regular rate Rhythm: regular rhythm GI: Inspection: normal to inspection and non-distended GI Palp: Yes Soft to palpation, No Firmness to palpation present (GI), No Tenderness to palpation present (GI), No Guarding due to palpation present (GI) and No Rigid due to palpation Objective Data Vital Signs Vital Signs: Vital Signs - 24 hr 06/30/21 07:25 06/30/21 08:44 06/30/21 11:35 Temperature 36.6 C Pulse Rate 80 78 Respiratory Rate 18 24 H Blood Pressure 127/58 L 154/64 H Pulse Oximetry 96 94 97 06/30/21 12:05 06/30/21 16:00 06/30/21 22:01 Temperature 36.8 C 37.4 C Pulse Rate 75 83 Respiratory Rate 24 H 18 Blood Pressure 138/63 155/68 H 159/63 H Pulse Oximetry 95 95 Intake/Output Intake/Output: Intake & Output 06/28/21 06/29/21 06/30/21 07/01/21 23:59 23:59 23:59 23:59 Intake Total 1270 1190 690 Output Total 1400 2100 775 Balance -130 -910 -85 Meds/Results Medications: Active Medications Generic Name Dose Route Start Last Admin Trade Name Freq PRN Reason Stop Dose Admin Albuterol 2 puff 06/26/21 03:25 06/29/21 11:33 Albuterol Sulfate (*Sp) Aerosol 1 Puff INHALATION 2 puff Q4-6H PRN Administration Shortness Of Breath Benzocaine 1 applic 06/30/21 11:13 06/30/21 21:11 Benzocaine 20% Dental Gel 9 Gm Tube BY MOUTH 1 applic QID PRN Administration Oral Pain Enoxaparin Sodium 40 mg 06/27/21 09:00 06/30/21 08:30 Enoxaparin 40 Mg/0.4 Ml Syringe SUB-Q 40 mg DAILY STARLA Administration Ceftriaxone Sodium/Dextrose 1 gm in 50 mls @ 100 mls/hr 06/29/21 12:00 06/30/21 11:47 Rocephin 1 Gm/D5w 50 Ml IVPB 07/08/21 23:59 100 mls/hr Q24H STARLA Administration Ondansetron HCl 4 mg 06/25/21 21:32 Ondansetron Inj 4 Mg/2 Ml Vial IV PUSH Q4H PRN Nausea Pantoprazole Sodium 40 mg 06/26/21 09:00 06/30/21 08:30 Pantoprazole 40 Mg Tablet PO 40 mg QAM STARLA Administration Sodium Chloride 10 ml 06/30/21 22:00 06/30/21 21:08 Saline Lock Flush IV PUSH 10 ml Q8HR STARLA Administration Sodium Chloride 10 ml 06/30/21 14:56 Saline Lock Flush IV PUSH PRN PRN Flush Sodium Chloride 20 ml 06/30/21 14:56 Saline Lock Flush IV PUSH PRN PRN after blood draws Umeclidinium [place] 1 puff 06/27/21 09:30 06/30/21 08:44 Umeclidinium [place] 62.5 Mcg Ellipta INHALATION 1 puff DAILYRT STARLA Administration Radiology Results: ITS Impressions Head CT 06/25/21 20:25 IMPRESSION: Cerebral atherosclerosis and chronic small vessel ischemic changes of cerebral white matter No acute intracranial finding Chest CTA 06/25/21 20:30 IMPRESSION: Emphysema No evidence of pulmonary embolism Chest X-Ray 06/26/21 08:44 IMPRESSION: 1. Mild atelectasis o
[2021-07-01] MEDS: SALINE LOCK FLUSH 10 ML IV PUSH (06:59)
[2021-07-01] MEDS: ENOXAPARIN 40 MG/0.4 ML SYRINGE SUB-Q (08:17)
[2021-07-01] MEDS: PANTOPRAZOLE 40 MG TABLET PO (08:17)
[2021-07-01] MEDS: BENZOCAINE 20% DENTAL GEL 9 GM TUBE 1 APPLIC BY MOUTH (08:18)
[2021-07-01] MEDS: UMECLIDINIUM BROMIDE 62.5 MCG ELLIPTA 1 PUFF INHALATION (12:08)
--- NOTE | 2021-07-22 06:16 | PM.EVENT ---
Event Note Event Note Event Note: Rapid response was called to the patient's room due to patient's severe respiratory distress. Upon arrival to patient's room he was noted to have a respiratory rate 30 per minute immediately patient received morphine 2 mg IV x2 in continuous albuterol neb treatment. Patient responded to these aunt was placed on BiPAP for support. Event happened on 06/26/2021 at around 5:00 a.m.
--- NOTE | 2021-07-26 15:59 | PM.DS ---
DS: Admitting Diagnosis Discharge Date 07/01/21 Admitting Diagnosis Fall Rigors DS: Discharge Diagnosis Discharge Diagnosis (1) Cholelithiasis: Code(s): K80.20 - Calculus of gallbladder without cholecystitis without obstruction Status: Acute (2) Liver abscess: Code(s): K75.0 - Abscess of liver Status: Acute (3) AAA (abdominal aortic aneurysm): Code(s): I71.4 - Abdominal aortic aneurysm, without rupture Status: Chronic (4) E. coli septicemia: Code(s): A41.51 - Sepsis due to Escherichia coli [E. coli] Status: Acute (5) Acute exacerbation of chronic obstructive airways disease: Code(s): J44.1 - Chronic obstructive pulmonary disease with (acute) exacerbation Status: Acute Assessment and Plan: Currently no clinical evidence of COPD exacerbation. Continue duoneb PRN. Resume home regimen. No spririva available on formulary; Patient will be started on incruse ellipta (6) SIRS (systemic inflammatory response syndrome): Code(s): R65.10 - Systemic inflammatory response syndrome (SIRS) of non-infectious origin without acute organ dysfunction Status: Acute Assessment and Plan: Patient was appropriately started on broad spectrum antibiotics. Now that his cultures are growing pansensitive E coli we have continued cefepime only. Follow up repeat blood cultures are negative. Follow up ID for treatment duration. (7) Intermittent claudication: Code(s): I73.9 - Peripheral vascular disease, unspecified Status: Acute Assessment and Plan: Currently asymptomatic. Continue to monitor. (8) Peripheral vascular disease: Code(s): I73.9 - Peripheral vascular disease, unspecified Status: Acute Assessment and Plan: Will use BiPAP as needed. Pulmonary recommendations were reviewed. Follow up repeat blood cultures. Follow up ID for discharge plan. DS: Summary Hospital Course Reason for hospitalization: rigors Fall Hospital Course: This is an 80-year-old gentleman resident of assisted living facility with a past medical history including but not limited to COPD/emphysema, former smoker with 46-pack year history, GERD, who was brought to the emergency department after he was found down. The patient had been in his usual state of health until the day prior to presentation. He states that he was found down on the floor on the prone position. The patient reports he had violent rigors that made him fall. He denies any other symptoms. There is no fever or chills no cough shortness of breath sputum production, no nausea vomiting diarrhea or abdominal pain. There is no chest pain orthopnea or paroxysmal nocturnal dyspnea. Initial workup in the ED is essentially nonrevealing. A CT of the chest with PE protocol was negative. Patient was admitted for observation. His CT angiogram revealed mild centrilobular emphysema on 06/25/2021. He is maintained on Spiriva as an outpatient with no recent exacerbation and no issue or changes of his activities of daily living. The patient was treated for possible pneumonia with vancomycin cefepime and azithromycin on June 25, 2021 . Patient improved under this management. He was weaned to room air with saturations around 95%. Blood culture grew Gram negative in 2 out of 2 bottles. COVID testing was negative. There was no evidence of hypercarbic respiratory failure with his presentation blood gas of 7.40 11/30/1992 on 4 L nasal cannula. Patient was successfully treated for COPD exacerbation and possible pneumonia. He was continued on prednisone 40 mg PO daily, albuterol 2.5 mg nebs q.4 hours and eyebrow troponin 0.5 mg nebs q.4 hours. On June 27 while the patient clinically improves significantly, his blood culture from 06/25 resulted with Gram-negative bacilli in 2/2 cultures. While he remained afebrile with his white count of 15.9, steroids prior promptly discontinued. On examination, he denied any a
== END 2021-07-01 13:27 | disposition home or self-care (01) | DRG 871 ==
LOC: ANHED 19:30 → ANHIMU 22:09 → ANH3MEDSUR 07-01 09:53 → ANHIMU 07-06 14:51
PROVIDERS: Emergency Medicine; Internal Medicine; Internal Medicine Infectious Disease; Admitting Provider Internal Medicine; Emergency Provider General Practice; PCP Emergency Medicine; Visit Provider Internal Medicine
DX: A41.51 Sepsis due to Escherichia coli [E. coli] (principal); J96.01 Acute respiratory failure with hypoxia; K75.0 Abscess of liver; J18.9 Pneumonia, unspecified organism; E55.9 Vitamin D deficiency, unspecified; F17.210 Nicotine dependence, cigarettes, uncomplicated; Z20.822 Contact with and (suspected) exposure to COVID-19; K21.9 Gastro-esophageal reflux disease without esophagitis; Z95.820 Peripheral vascular angioplasty status with implants and grafts; E78.5 Hyperlipidemia, unspecified; B96.20 Unspecified Escherichia coli [E. coli] as the cause of diseases classified elsewhere; H35.30 Unspecified macular degeneration; E11.65 Type 2 diabetes mellitus with hyperglycemia; E11.51 Type 2 diabetes mellitus with diabetic peripheral angiopathy without gangrene; J43.2 Centrilobular emphysema; I71.4 Abdominal aortic aneurysm, without rupture; K80.20 Calculus of gallbladder without cholecystitis without obstruction
CPT/HCPCS: 36415; 36569; 36600; 70450; 71045; 71275; 74177; 80053; 80076; 81001; 82150; 82375; 82805; 82948; 83036; 83050; 83605; 83880; 84484; 85025; 85027; 85055; 85610; 85730; 86140; 87040; 87077; 87086; 87186; 93005; 94640; 94660; 96361; 96365; 96366; 96367; 96372; 96375; 97110; 97116; 97162; 97165; 97535; 99285; A9270; C1751; C9803; G0378; J0131; J0456; J0692; J0696; J1650; J1940; J2270; J2405; J2930; J3370; J7030; J7512; Q9967; U0003; U0005

== ENCOUNTER 2021-10-14 21:04 | Inpatient (IN) | payer OTHER, SELFPAY ==
--- NOTE | ~2021-10-14 | XR_ITS ---
EXAMINATION: XR chest 1V portable EXAM DATE: 10/14/2021 21:36 INDICATION: Weakness,Nausea,Abd Pain,Decreased Appt,Hx AAA,Diabetes,Copd TECHNIQUE: Portable AP frontal chest x-ray was obtained. Comparison is made to prior examination from 06/26/2021. FINDINGS: There is moderate sliding gastroesophageal hiatal hernia. The lungs are hyperinflated which can be seen with chronic obstructive pulmonary disease (a clinical diagnosis of functional impairmen t), but is not diagnostic of it. No confluent consolidation, pneumothorax or pleural effusion suspect ed. Cardiomediastinal silhouette is normal. There are no osseous abnormalities identified. There is n o significant interval change. IMPRESSION: 1. Chronic hyperinflation. 2. Moderate hiatal hernia. Reviewed, dictated and finalized at location G. IVAL SPECIALIST
--- NOTE | ~2021-10-14 | CT_ITS ---
EXAMINATION: CT abdomen pelvis w con EXAM DATE: 10/14/2021 22:51 INDICATION: Abdominal pain , weakness, decreased appetite. Symptoms one week. Nausea and diarrhea. TECHNIQUE: Spiral CT of the abdomen and pelvis was performed following intravenous injection of 100 m L Omnipaque 350. Axial, coronal and sagittal images of the abdomen and pelvis were reviewed. The do se-length product (DLP) for this examination was 454.60 mGy-cm. The exposure was tailored according to patient size (auto mA exposure control), and iterative reconstruction (ASIR) was used as additiona l dose reduction technique. Comparison is made to prior examination from 06/29/2021. FINDINGS: Previously seen small multiloculated liver abscess adjacent to the gallbladder fossa has re solved, probably was abscess. There is cholelithiasis. Moderately distended gallbladder but no adjac ent summation. Mild biliary duct dilation. No calcified choledocholithiasis. Mounted biliary distenti on mildly increased compared to June. Portal and splenic veins are patent. Kidneys enhance sym metrically. There is no hydronephrosis. The prostate is unremarkable. The bladder is unremarkable . There is no retroperitoneal or pelvic lymphadenopathy. There is moderate scattered arteriosclero tic disease. Fusiform mid abdominal aortic aneurysm at 4.4 cm unchanged, no rupture. The appendix is normal. There is mild scattered colonic diverticulosis. There is no adjacent inflamm atory change to suggest diverticulitis. There is a moderate to large gastroesophageal hiatal hernia. There is expected amount of colonic stool. No free intraperitoneal gas. The heart is normal in size. There are no pericardial or pleural effusions. Basilar emphysema. There are no osteoblastic or osteolytic lesions identified. IMPRESSION: 1. Cholelithiasis. Moderately distended gallbladder and biliary system without obstructing choledoch olithiasis identified. Correlate with bilirubin levels, consider ultrasound or HIDA scan if indicated clinically. 2. Resolution of previously seen multiloculated liver fluid collection at the gallbladder fossa, pro bably resolution of abscess. 3. Mid abdominal aortic 4.4 cm aneurysm unchanged. 4. Moderate to large gastroesophageal hiatal hernia. 5. Emphysema. Reviewed, dictated and finalized at location G. MERCERIZER OPERATOR IMPRESSION: 1. Cholelithiasis. Moderately distended gallbladder and biliary system without obstructing choledocholithiasis identified. Correlate with bilirubin levels, c onsider ultrasound or HIDA scan if indicated clinically. 2. Resolution of previously seen multiloculated liver fluid collection at the gallbladder fossa, probably resolution of abscess. 3. Mid abdominal aortic 4.4 cm aneurysm unchanged. 4. Moderate to large gastroesophageal hiatal hernia. 5. Emphysema.
[2021-10-14 21:06] VITALS: BP 152/54; PULSE 102; RESP 29; TEMP 39.3; O2SAT 95
--- NOTE | 2021-10-14 21:13 | ECG_ITS ---
Measurements Intervals [place] Rate: 100 P: 87 DE: 124 QRS: 79 QRSD: 121 T: 58 QT: 347 QTc: 449 Interpretive Statements SINUS TACHYCARDIA FREQUENT ATRIAL PREMATURE COMPLEXES RIGHT BUNDLE BRANCH BLOCK BASELINE WANDER- I, II, V5-V6 ABNORMAL ECG Electronically Signed On 10-15-2021 6:26:46 [employer]IN[employer]CED [employer]WORK[employer] by Parker Mcgowan D.O.
[2021-10-14 21:34] LABS: Basophils Percent Auto 0.3 % (0.2-1.2); Eosinophils Absolute Auto 0.7 K/mm3 (0-0.3); Eosinophils Percent Auto 5.4 % (0-4.4); Hemoglobin 12.2 g/dL (14.0-18.0); Immature Granulocyte Percent A 0.8 % (0-0.5); Lymphocytes Absolute Auto 0.34 K/mm3 (0.9-3.2); Lymphocytes Percent Auto 2.6 % (18.3-44.2); Mean Corpuscular HGB Conc 32.1 g/dl (32-36); Mean Corpuscular Hemoglobin 26.7 pg (26-34); Mean Corpuscular Volume 83.2 fl (80-100); Mean Platelet Volume 9.6 fl (7.4-10.4); Monocytes Absolute Auto 0.6 K/mm3 (0.1-0.6); Monocytes Percent Auto 4.5 % (2.6-8.5); Neutrophils Absolute Auto 11.3 K/mm3 (1.3-6.7); Neutrophils Percent Auto 86.4 % (45.5-73.1); Platelet Count Result 122 k/mm3 (150-375); Red Blood Count 4.57 M/mm3 (4.6-6.20); Red Cell Distribution Width 15.7 % (11.5-14.5); White Blood Count 13.1 K/mm3 (4.5-10.0)
[2021-10-14] MEDS: SODIUM CHLORIDE 0.9% IV 1,000 ML 999 ML IV CONT (21:41)
--- NOTE | 2021-10-14 21:44 | ED.ABDPAIN ---
HPI - Abdominal Pain General Chief Complaint: Abdominal Pain Stated Complaint: nausea/abd pain Time Seen by Provider: 10/14/21 21:19 Source: patient Mode of arrival: EMS Limitations: no limitations History of Present Illness HPI narrative: Patient is an 81-year-old male complaining of abdominal pain, mid abdomen, 8 out of 10, dull, nonradiating started 5 days ago but worse today. Patient denies any chest pain, shortness of breath, nausea, vomiting, diarrhea or urinary symptoms. Patient febrile upon arrival. Patient states that he is vaccinated for Covid. Related Data Allergies Allergy/AdvReac Type Severity Reaction Status Date / Time No Known Allergies Allergy Verified 10/14/21 21:16 Review of Systems Review of Systems: All systems reviewed & are unremarkable except as noted in HPI and below Constitutional: Constitutional: Denies excessive sweating, Denies fatigue, Denies headache(s), Denies lethargy, Denies malaise, Denies weakness and Denies weight loss Eyes: Eyes: Denies blurry vision, Denies change in vision and Denies loss of vision ENT: Denies dizziness, Denies ear discharge, Denies headache(s), Denies lip swelling, Denies epistaxis, Denies nasal congestion, Denies neck pain, Denies throat swelling and Denies tongue swelling Cardiovascular: Cardiovascular: Denies chest pain, Denies chest pain at rest, Denies chest pain with activity, Denies diaphoresis, Denies rapid heart rate, Denies edema, Denies irregular heart rhythm, Denies lightheadedness, Denies palpitations, Denies dyspnea and Denies dyspnea on exertion Respiratory: Respiratory: Denies chest congestion, Denies cough, Denies hemoptysis, Denies dyspnea and Denies dyspnea on exertion Gastrointestinal: Gastrointestinal: Denies melena, Denies hematochezia, Denies diarrhea, Denies nausea, Denies vomiting and Denies hematemesis Musculoskeletal: Musculoskeletal: Denies abnormal gait, Denies deformity, Denies joint swelling, Denies limited range of motion, Denies neck pain and Denies numbness Neurologic: Denies Abnormal speech present, Denies abnormal gait, Denies confusion, Denies dizziness, Denies headache(s), Denies focal weakness, Denies loss of vision, Denies numbness, Denies Other visual disturbances, Denies Sensory deficit (Neuro) and Denies weakness Psychiatric: Psychiatric: Denies confusion, Denies depression, Denies auditory hallucinations, Denies homicidal ideation and Denies suicidal ideation Endocrine: Endocrine: Denies cold intolerance, Denies excessive sweating, Denies fatigue, Denies heat intolerance and Denies palpitations Hematologic/Lymphatic: Hematologic/Lymphatic: Denies easy bleeding and Denies easy bruising Allergic/Immunologic: Allergic/Immunologic: Denies lip swelling, Denies throat swelling and Denies tongue swelling PMF Past Medical History Medical History AAA (abdominal aortic aneurysm) CT scan 06/29/21 showed infrarenal AAA 4.4 cm He is followed by vascular surgery COPD (chronic obstructive pulmonary disease) Diabetes mellitus GERD (gastroesophageal reflux disease) Peripheral vascular disease Stenosis of lower extremity artery Stent in leg 2020 Tobacco abuse Vitamin D deficiency disease Surgical History Surgical History No significant past surgical history Family History Family History Father Cerebrovascular accident, Onset Age: 74 Family history of diabetes mellitus Social History Social History Years smoked: 40 Smoking status: Current some day smoker Tobacco type: cigarettes Second hand tobacco smoke exposure: No Additional smoking assessment comments: Only smokes 1 cigarette every couple days Alcohol intake: never Substance use: never Spiritual care concerns: No Exam Const:
[2021-10-14 21:51] VITALS: PULSE 98; RESP 31; O2SAT 94
[2021-10-14 22:04] LABS: Add Urine Microscopic? YES; Appearance Urine Clear (Clear); Bilirubin Urine 1+ (Negative); Blood Urine Negative (Negative); Color Urine Amber (Yellow); Glucose Urine UA Negative (Negative); Ketones Urine Trace mg/dL (Negative); Leukocyte Esterase Ur Negative LEU/UL (Negative); Mucus Urine Rare /lpf; Nitrate Urine Negative (Negative); Protein Urine 2+ mg/dL (Negative); Specific Grav Ur 1.025 (1.001-1.035); Squamous Epithelial Cell Urine Rare /hpf (Few); WBC Urine 0-3 /hpf
[2021-10-14 22:16] LABS: Alanine Aminotransferase 104 U/L (4-50); Albumin Level 3.7 g/dL (3.5-5.1); Alkaline Phosphatase 297 U/L (38-126); Anion Gap 10 mmol/L (8-16); Aspartate Amino Transferase 86 U/L (17-59); Bilirubin,Total 4.5 mg/dL (0.2-1.3); Blood Urea Nitrogen 17 mg/dL (9-20); Calcium 9.3 mg/dL (8.4-10.2); Carbon Dioxide 21 mmol/L (22-30); Chloride 104 mmol/L (98-107); Estimated CRCL calculation 43 ml/min; Estimated Glomerular Filt Rate > 60; Glucose 184 mg/dL (65-110); Potassium 3.9 mmol/L (3.4-5.0); Sodium 135 mmol/L (137-145)
[2021-10-14] MEDS: HYDROmorphone HCL INJ (*CRX) 1 MG/ML SYR 0.5 MG IV PUSH (22:24)
[2021-10-14] MEDS: ONDANSETRON INJ 4 MG/2 ML VIAL IV PUSH (22:24)
[2021-10-14 22:27] VITALS: BP 119/46; PULSE 87; RESP 27; TEMP 37.6; O2SAT 91
[2021-10-14 22:31] LABS: Lipase 12273 U/L (23-300)
[2021-10-14 22:38] LABS: SARS-CoV-2 RNA PCR Negative
[2021-10-14 23:21] VITALS: PULSE 83; RESP 19; O2SAT 92
[2021-10-14] MEDS: LACTATED RINGERS 1,000 ML 999 ML IV CONT (23:39)
--- NOTE | 2021-10-15 00:42 | PM.IMHP ---
H&P: HPI History of Present Illness Date/Time: 10/15/21 00:42 Chief Complaint: Abdominal pain. Narrative: This is an 81-year-old male with past medical history significant for COPD/emphysema, gastroesophageal reflux disease, abdominal aortic aneurysm, peripheral vascular disease, tobacco abuse. Patient presented to emergency room for evaluation of pain in the epigastric area nonradiating, accompanied by nausea but no vomiting. Patient denies any fevers any rigors any chills any cough, any sputum production ,any leg swelling, PND, orthopnea, chest pain. Patient with admission and discharge from hospital a few months back on June of 2021 where he was brought to the emergency room after he was found down in his room at the [facility] patient was found to have a liver abscess which current CT of abdomen and pelvis shows resolution. Preliminary workup today in emergency room is significant for lipase upwards 12,000, bilirubin of 4.0, AST/ ALT/ alk phos 86/104/297 also patient we eos of 5.4 leukocyte count of 13,000. CT of abdomen and pelvis was significant for cholelithiasis. Patient is been admitted for further evaluation, management and treatment. Review of Systems Review of Systems: Epigastric abdominal pain, nausea Constitutional: Constitutional: Denies chills, Denies fever(s), Denies lethargy and Denies malaise Eyes: Eyes: Denies change in vision ENT: Denies dysphagia, Denies nasal congestion, Denies nasal discharge, Denies nasal obstruction and Denies odynophagia Cardiovascular: Cardiovascular: Denies pedal edema, Reports claudication, Denies leg edema, Denies lightheadedness, Denies radiating jaw, neck or arm pain, Denies palpitations, Denies dyspnea, Denies dyspnea on exertion and Denies orthopnea Respiratory: Respiratory: Denies cough and Denies dyspnea Gastrointestinal: Gastrointestinal: Reports abdominal pain (Epigastric area), Denies dyspepsia, Denies heartburn, Denies diarrhea, Reports nausea and Denies vomiting Genitourinary: Genitourinary: Denies dysuria Musculoskeletal: Musculoskeletal: Reports no additional musculoskeletal complaints and Reports as per HPI Integumentary/Breasts: Skin/Breast: Denies rash Neurologic: Denies dizziness, Denies syncope, Denies focal weakness and Denies Sensory deficit (Neuro) Psychiatric: Psychiatric: Reports no additional psychiatric complaints and Reports as per HPI Endocrine: Endocrine: Denies polyphagia, Denies polydipsia, Denies polyuria and Denies palpitations Hematologic/Lymphatic: Hematologic/Lymphatic: Reports no additional hematologic/lymphatic complaints and Reports as per HPI Allergic/Immunologic: Allergic/Immunologic: Reports no additional allergic/immunologic complaints and Reports as per HPI [facility] Past Medical History Medical History (Updated 10/15/21 @ 04:11 by Jaymie Sanders MD) AAA (abdominal aortic aneurysm) CT scan 06/29/21 showed infrarenal AAA 4.4 cm He is followed by vascular surgery COPD (chronic obstructive pulmonary disease) Diabetes mellitus GERD (gastroesophageal reflux disease) Peripheral vascular disease Stenosis of lower extremity artery Stent in leg 2020 Tobacco abuse Vitamin D deficiency disease Surgical History Surgical History No significant past surgical history Family History Family History Father Cerebrovascular accident, Onset Age: 74 Family history of diabetes mellitus Social History Social History Smoking packs per day: 0.05 Smoking cigarettes per day: 1.0 Years smoked: 40 Smoking pack-years: 2.00 Smoking status: Current every day smoker Tobacco type: cigarettes Second hand tobacco smoke exposure: No Additional smoking assessment comments: Only smokes 1 cigarette every couple days Alcohol intake: never Substance use: never S
[2021-10-15 01:25] VITALS: BP 107/52; PULSE 70; RESP 17; TEMP 36.5; O2SAT 95
--- NOTE | 2021-10-15 02:05 | ADMGEN ---
This patient, Sp Bray, was admitted to Medical Room [facility]- at 0200. Patient/family oriented to hospital policies and general routines including ID bracelet, bed and alarms, visiting hours, pain management, procedures, bathroom and other care routines, personal items, smoking policy, room service/diet, and visiting hours. Information on how to activate the Rapid Response Team has been discussed. Patient/Family are encouraged to report perceived risks to care and to ask questions if they do not understand what they are told or what they should do.
[2021-10-15 02:06] VITALS: BMI 25.9
[2021-10-15 02:07] VITALS: BP 124/57; PULSE 75; RESP 20; TEMP 35.8; O2SAT 98
[2021-10-15] MEDS: LACTATED RINGERS 1,000 ML 150 ML IV CONT ×3 (02:14→21:19)
[2021-10-15 04:20] VITALS: BP 98/46; PULSE 64; RESP 18; TEMP 36.2; O2SAT 96
--- NOTE | 2021-10-15 09:17 | PM.CNGS ---
Assessment and Plan Assessment and plan (1) Acute biliary pancreatitis: Qualifiers: Acute pancreatitis complication: unspecified Qualified Code(s): K85.10 - Biliary acute pancreatitis without necrosis or infection Code(s): K85.10 - Biliary acute pancreatitis without necrosis or infection Status: Acute Assessment and Plan: will get MRCP, will also get GI consult, cont abx, will likely need interval cholecystectomy (2) Tobacco abuse: Code(s): Z72.0 - Tobacco use Status: Acute Assessment and Plan: discussed cessation given h/o COPD, increases surgical risk (3) Liver abscess: Code(s): K75.0 - Abscess of liver Status: Acute Assessment and Plan: likely from previous cholecystitis, looks to be resolved on current CT (4) Diabetes mellitus: Qualifiers: Diabetes mellitus type: type 2 Diabetes mellitus terminal carman insulin use: without terminal carman use Diabetes mellitus complication status: with circulatory complication Diabetes mellitus complication detail: with peripheral angiopathy without gangrene Qualified Code(s): E11.51 - Type 2 diabetes mellitus with diabetic peripheral angiopathy without gangrene Code(s): E11.9 - Type 2 diabetes mellitus without complications Status: Acute Assessment and Plan: tight bs control History of Present Illness Consult details Consult date: 10/15/21 Reason for consult: abdominal pain Requesting physician: Jaymie Sanders MD Narrative: The patient is a 81-year-old male with multiple medical issues presenting to the emergency department complaining of diffuse upper abdominal pain. The patient reports that the pain has been present for quite a while and is exacerbated by eating. The patient reports early satiety, bloating, and bouts of nausea. The patient also reports that he looks jaundiced. Review of Systems Constitutional: Constitutional: Reports anorexia, Denies chills, Reports fatigue, Denies fever(s), Denies increased appetite, Reports lethargy, Reports malaise, Denies night sweats, Reports poor appetite, Reports weakness, Denies weight gain and Denies weight loss Eyes: Eyes: Reports no additional eye complaints ENT: Reports system reviewed and no additional complaints, except as documented Cardiovascular: Cardiovascular: Reports no additional cardiovascular complaints Respiratory: Respiratory: Reports no additional respiratory complaints Gastrointestinal: Gastrointestinal: Reports as per HPI, Reports abdominal pain, Reports bloating, Reports change in stool character, Reports early satiety, Reports loose stools, Reports nausea and Denies vomiting Genitourinary: Genitourinary: Reports no additional male genitourinary complaints Musculoskeletal: Musculoskeletal: Reports no additional musculoskeletal complaints Integumentary/Breasts: Skin/Breast: Reports system reviewed and no additional complaints, except as docu Neurologic: Reports system reviewed and no additional complaints, except as documented Psychiatric: Psychiatric: Reports no additional psychiatric complaints Endocrine: Endocrine: Reports no additional endocrine complaints Hematologic/Lymphatic: Hematologic/Lymphatic: Reports no additional hematologic/lymphatic complaints Allergic/Immunologic: Allergic/Immunologic: Reports no additional allergic/immunologic complaints [facility] Past Medical History Medical History AAA (abdominal aortic aneurysm) CT scan 06/29/21 showed infrarenal AAA 4.4 cm He is followed by vascular surgery COPD (chronic obstructive pulmonary disease) Diabetes mellitus GERD (gastroesophageal reflux disease) Peripheral vascular disease Stenosis of lower extremity artery Stent in leg 2020 Tobacco abuse Vitamin D deficiency disease Surgical History Surgical History No significant past surgical history
--- NOTE | 2021-10-15 12:51 | WPDGICN ---
Assessment and Plan Assessment and plan (1) Gallstone pancreatitis: Code(s): K85.10 - Biliary acute pancreatitis without necrosis or infection Status: Acute Assessment and Plan: npo for now will assess with mrcp to check if also choledocholithiasis surgery involved, most likely also will need cholecystectomy (previous hospitalization with bacteremia and small liver abscess which is resolved now) (2) Cholecystitis: Code(s): K81.9 - Cholecystitis, unspecified Status: Acute Assessment and Plan: medical treatment surgery on board (3) Elevated liver enzymes: Code(s): R74.8 - Abnormal levels of other serum enzymes Status: Acute Assessment and Plan: monitor get hepatitis panel denies etoh use (4) Upper abdominal pain: Code(s): R10.10 - Upper abdominal pain, unspecified Status: Acute Assessment and Plan: better with medical treatment (5) COPD (chronic obstructive pulmonary disease): Code(s): J44.9 - Chronic obstructive pulmonary disease, unspecified Status: Acute GI Consult Note Consult date/time: 10/15/21 12:51 Reason for consult: gallstone pancreatitis, elevated liver enzymes. HPI: Sp Bray is a 81 year old male with history of COPD and peripheral vascular disease who was admitted here on 06/2021 with E colic bacteremia and found to have liver abscess treated medically (surgery and ID were involved). He says that has been having intermittent upper abdominal discomfort since but got much worse, denies fever or chills. Otherwise no previous history of liver disease, denies alcohol use or previous pancreatitis. On admission diagnosed with GS pancreatitis, had lipase 12,000, bilirubin of 4.0, AST/ ALT/ alk phos 86/104/297, leukocyte count of 13,000. CT of abdomen and pelvis reviewed, resolution of liver abscess, cholelithiasis. Moderately distended gallbladder and biliary system without obstructing choledocholithiasis identified. Large hiatal hernia. No nausea or vomiting, his pain is almost gone now. Review of Systems Constitutional: Constitutional: Denies chills Eyes: Eyes: Reports no additional eye complaints ENT: Reports system reviewed and no additional complaints, except as documented Cardiovascular: Cardiovascular: Denies chest pain Respiratory: Respiratory: Denies dyspnea Gastrointestinal: Gastrointestinal: Reports abdominal pain Genitourinary: Genitourinary: Denies dysuria Musculoskeletal: Musculoskeletal: Denies neck pain Integumentary/Breasts: Skin/Breast: Denies dry skin Neurologic: Denies headache(s) Psychiatric: Psychiatric: Denies behavioral changes [facility] Past Medical History Medical History (Updated 10/15/21 @ 12:56 by Maxx Braxton MD) AAA (abdominal aortic aneurysm) CT scan 06/29/21 showed infrarenal AAA 4.4 cm He is followed by vascular surgery Cholecystitis COPD (chronic obstructive pulmonary disease) Diabetes mellitus Elevated liver enzymes Gallstone pancreatitis GERD (gastroesophageal reflux disease) Peripheral vascular disease Stenosis of lower extremity artery Stent in leg 2020 Tobacco abuse Upper abdominal pain Vitamin D deficiency disease Surgical History Surgical History No significant past surgical history Family History Family History Father Cerebrovascular accident, Onset Age: 74 Family history of diabetes mellitus Social History Social History Smoking packs per day: 0.05 Smoking cigarettes per day: 1.0 Years smoked: 40 Smoking pack-years: 2.00 Smoking status: Current every day smoker Tobacco type: cigarettes Second hand tobacco smoke exposure: No Additional smoking assessment comments: Only smokes 1 cigarette every couple days Alcohol intake: never Substance use: never S
--- NOTE | 2021-10-15 12:59 | PM.IMPN ---
Progress Note: A&P Assessment and Plan (1) Acute biliary pancreatitis: Qualifiers: Acute pancreatitis complication: unspecified Qualified Code(s): K85.10 - Biliary acute pancreatitis without necrosis or infection Code(s): K85.10 - Biliary acute pancreatitis without necrosis or infection Status: Acute Assessment and Plan: NPO Admit to regular medical floor Patient was noted to have some eosinophilia Question for malignancy? IV fluids Supportive care Surgery consulted interval history 81-year-old male with acute biliary pancreatitis seen by surgery service recommending MRCP to further evaluate, patient seen by GI will follow-up on MRCP and further recommendation to follow, patient states pain had been persistent for last couple of weeks however it was getting worse and was not resolving with OTC and prompted to ER visit, currently denies any nausea or vomiting fever or chills, remains clinically stable, will continue to monitor and further recommendation to follow (2) Tobacco abuse: Code(s): Z72.0 - Tobacco use Status: Acute Assessment and Plan: Nicotine patch as needed Patient quit (3) AAA (abdominal aortic aneurysm): Qualifiers: Presence of rupture: without rupture Qualified Code(s): I71.4 - Abdominal aortic aneurysm, without rupture Code(s): I71.4 - Abdominal aortic aneurysm, without rupture Status: Chronic Assessment and Plan: 4.4 cm continue to monitor Abdominal ultrasound q.6 months to assess for growth Not on beta-trudy (4) COPD (chronic obstructive pulmonary disease): Code(s): J44.9 - Chronic obstructive pulmonary disease, unspecified Status: Acute Assessment and Plan: Continue Spiriva Continue albuterol Not actively be wheezing Continue to monitor (5) Peripheral vascular disease: Code(s): I73.9 - Peripheral vascular disease, unspecified Status: Acute Assessment and Plan: Unchanged Subjective Date/time seen: 10/15/21 12:59 Chief Complaint: Abdominal pain. HPI:Narrative: This is an 81-year-old male with past medical history significant for COPD/emphysema, gastroesophageal reflux disease, abdominal aortic aneurysm, peripheral vascular disease, tobacco abuse. Patient presented to emergency room for evaluation of pain in the epigastric area nonradiating, accompanied by nausea but no vomiting. Patient denies any fevers any rigors any chills any cough, any sputum production ,any leg swelling, PND, orthopnea, chest pain. Patient with admission and discharge from hospital a few months back on June of 2021 where he was brought to the emergency room after he was found down in his room at the [facility] patient was found to have a liver abscess which current CT of abdomen and pelvis shows resolution. Preliminary workup today in emergency room is significant for lipase upwards 12,000, bilirubin of 4.0, AST/ ALT/ alk phos 86/104/297 also patient we eos of 5.4 leukocyte count of 13,000. CT of abdomen and pelvis was significant for cholelithiasis. Patient is been admitted for further evaluation, management and treatment. interval history 81-year-old male with acute biliary pancreatitis seen by surgery service recommending MRCP to further evaluate, patient seen by GI will follow-up on MRCP and further recommendation to follow, patient states pain had been persistent for last couple of weeks however it was getting worse and was not resolving with OTC and prompted to ER visit, currently denies any nausea or vomiting fever or chills, remains clinically stable, will continue to monitor and further recommendation to follow Review of Systems Review of Systems: All systems reviewed & are unremarkable except as noted in HPI and below Exam Narrative: elderly frail Patient is comfortable, NAD HEENT: eyes are clear and none icteric LUNGS:CTA HEART: RR S1S2 ABD: bowel sounds h
[2021-10-15 14:00] VITALS: BP 120/50; PULSE 78; RESP 18; TEMP 36.5; O2SAT 94
[2021-10-15] MEDS: PANTOPRAZOLE 40 MG TABLET PO (16:29)
--- NOTE | 2021-10-15 19:23 | PCRCNOTE ---
Window of time for administration has passed. See next scheduled administration.
[2021-10-15] MEDS: ALBUTEROL SULFATE (*SP) AEROSOL 1 PUFF 2 PUFF INHALATION (21:20)
[2021-10-15 21:38] VITALS: BP 122/55; PULSE 69; RESP 18; TEMP 36.4; O2SAT 95
[2021-10-16] MEDS: LACTATED RINGERS 1,000 ML 150 ML IV CONT ×4 (00:19→23:48)
[2021-10-16] MEDS: ALBUTEROL SULFATE (*SP) AEROSOL 1 PUFF 2 PUFF INHALATION ×2 (05:38→20:16)
[2021-10-16 05:42] VITALS: BP 133/51; PULSE 70; RESP 18; TEMP 36.4; O2SAT 93
[2021-10-16 05:55] LABS: Hematocrit 31.1 % (42.0-52.0); Hemoglobin 9.8 g/dL (14.0-18.0); Mean Corpuscular HGB Conc 31.5 g/dl (32-36); Mean Corpuscular Hemoglobin 26.6 pg (26-34); Mean Corpuscular Volume 84.3 fl (80-100); Mean Platelet Volume 10.2 fl (7.4-10.4); Platelet Count Result 104 k/mm3 (150-375); Red Blood Count 3.69 M/mm3 (4.6-6.20); Red Cell Distribution Width 15.9 % (11.5-14.5); White Blood Count 8.9 K/mm3 (4.5-10.0)
[2021-10-16 06:16] LABS: Alanine Aminotransferase 63 U/L (4-50); Albumin Level 2.5 g/dL (3.5-5.1); Alkaline Phosphatase 193 U/L (38-126); Anion Gap 7 mmol/L (8-16); Aspartate Amino Transferase 44 U/L (17-59); Bilirubin,Total 2.2 mg/dL (0.2-1.3); Blood Urea Nitrogen 15 mg/dL (9-20); Calcium 7.8 mg/dL (8.4-10.2); Carbon Dioxide 20 mmol/L (22-30); Chloride 106 mmol/L (98-107); Estimated CRCL calculation 59 ml/min; Estimated Glomerular Filt Rate > 60; Glucose 111 mg/dL (65-110); Potassium 3.7 mmol/L (3.4-5.0); Sodium 133 mmol/L (137-145)
[2021-10-16 06:45] LABS: Lipase 3706 U/L (23-300)
[2021-10-16 07:02] LABS: Hepatitis B Surface Antigen Negative (Negative)
[2021-10-16 07:07] LABS: HAV RESULT Negative (Negative); Hepatitis B Core IgM Result Negative (Negative)
[2021-10-16 07:19] LABS: Hepatitis C Virus Antibody Negative (Negative)
[2021-10-16] MEDS: ACETAMINOPHEN 500 MG TABLET 1000 MG PO (08:30)
[2021-10-16] MEDS: PANTOPRAZOLE 40 MG TABLET PO ×2 (08:32→20:15)
[2021-10-16] MEDS: UMECLIDINIUM BROMIDE 62.5 MCG ELLIPTA 1 PUFF INHALATION (10:05)
--- NOTE | 2021-10-16 10:21 | PM.IMPN ---
Progress Note: A&P Assessment and Plan (1) Acute biliary pancreatitis: Qualifiers: Acute pancreatitis complication: unspecified Qualified Code(s): K85.10 - Biliary acute pancreatitis without necrosis or infection Code(s): K85.10 - Biliary acute pancreatitis without necrosis or infection Status: Acute Assessment and Plan: NPO Admit to regular medical floor Patient was noted to have some eosinophilia Question for malignancy? IV fluids Supportive care Surgery consulted interval history 81-year-old male with acute biliary pancreatitis seen by surgery service recommending MRCP to further evaluate, patient seen by GI will follow-up on MRCP and further recommendation to follow, patient states pain had been persistent for last couple of weeks however it was getting worse and was not resolving with OTC and prompted to ER visit, currently denies any nausea or vomiting fever or chills, remains clinically stable, will continue to monitor and further recommendation to follow. interval history, patient remains clinically stable pain is better, his lipase are trending down to 3706 [id number] upon arrival, LFTs improving, patient blood culture is growing Gram-negative bacilli started the patient Ashleesyn will follow-up on identification and sensitivity, patient be seen by GI and surgery service, patient will have MRCP will follow-up and further recommendation to follow. (2) Tobacco abuse: Code(s): Z72.0 - Tobacco use Status: Acute Assessment and Plan: Nicotine patch as needed Patient quit (3) AAA (abdominal aortic aneurysm): Qualifiers: Presence of rupture: without rupture Qualified Code(s): I71.4 - Abdominal aortic aneurysm, without rupture Code(s): I71.4 - Abdominal aortic aneurysm, without rupture Status: Chronic Assessment and Plan: 4.4 cm continue to monitor Abdominal ultrasound q.6 months to assess for growth Not on beta-trudy (4) COPD (chronic obstructive pulmonary disease): Code(s): J44.9 - Chronic obstructive pulmonary disease, unspecified Status: Acute Assessment and Plan: Continue Spiriva Continue albuterol Not actively be wheezing Continue to monitor (5) Peripheral vascular disease: Code(s): I73.9 - Peripheral vascular disease, unspecified Status: Acute Assessment and Plan: Unchanged Subjective Date/time seen: 10/16/21 10:21 interval history 81-year-old male with acute biliary pancreatitis seen by surgery service recommending MRCP to further evaluate, patient seen by GI will follow-up on MRCP and further recommendation to follow, patient states pain had been persistent for last couple of weeks however it was getting worse and was not resolving with OTC and prompted to ER visit, currently denies any nausea or vomiting fever or chills, remains clinically stable, will continue to monitor and further recommendation to follow. interval history, patient remains clinically stable pain is better, his lipase are trending down to [id number] arrival, LFTs improving, patient blood culture is growing Gram-negative bacilli started the patient Cata will follow-up on identification and sensitivity, patient be seen by GI and surgery service, patient will have MRCP will follow-up and further recommendation to follow. Review of Systems Review of Systems: All systems reviewed & are unremarkable except as noted in HPI and below Exam Narrative: elderly frail Patient is comfortable, NAD HEENT: eyes are clear and none icteric LUNGS:CTA HEART: RR S1S2 ABD: bowel sounds her positive tender right upper quadrant and epigastric. Lower extremities: no edema SKIN: nonjaundiced Neuro: grossly intact. Objective Data Vital Signs Vital Signs: Vital Signs - 24 hr 10/15/21 14:00 10/15/21 21:38 10/16/21 05:42 Temperature 97.7 F 97.6 F 97.6 F Pulse Rate 78 69 70 Re
--- NOTE | 2021-10-16 11:25 | WPDGIPROGNO ---
Progress Note: A&P Assessment and Plan (1) Gallstone pancreatitis: Code(s): K85.10 - Biliary acute pancreatitis without necrosis or infection Status: Acute Assessment and Plan: symptomatically doing better, no more pain bili down to 2 ? already passed stone surgery on board, will need lap lyndsay (also had history of liver abscess that now is resolved) pending on MRCP (he had previous vascular stent and need records to check if stent will be compatible with MRCP)- another option is to have cholecystectomy with IOC to check if residual stones in bile duct and if would benefit from ercp (2) Elevated liver enzymes: Code(s): R74.8 - Abnormal levels of other serum enzymes Status: Acute Assessment and Plan: trending down monitor (3) Cholecystitis: Code(s): K81.9 - Cholecystitis, unspecified Status: Acute Assessment and Plan: by surgery (4) Upper abdominal pain: Code(s): R10.10 - Upper abdominal pain, unspecified Status: Acute (5) Liver abscess: Code(s): K75.0 - Abscess of liver Status: Acute Assessment and Plan: resolved Subjective Date/time seen: 10/16/21 11:25 Interval history: no more pain, doing better Review of Systems Review of Systems: All systems reviewed & are unremarkable except as noted in HPI and below Exam Const: General: comfortable and no acute distress HENMT: General nose exam: Normal nares present Eyes: General: appearance normal, both eyes and all related structures Neck: Neck: no JVD Resp: Auscultation: clear to auscultation bilaterally Cardio: Rate: regular rate Rhythm: regular rhythm GI: Inspection: non-distended GI Palp: Yes Soft to palpation, No Tenderness to palpation present (GI) and No Guarding due to palpation present (GI) Auscultation: normal bowel sounds Skin: General skin exam: normal color Neuro: Speech: normal speech Motor exam (neuro): Normal motor muscle tone present throughout Extrem: General: normal to inspection Psych: Mental Status: mental status grossly normal Objective Data Vital Signs Vital Signs: Vital Signs - 24 hr 10/15/21 14:00 10/15/21 21:38 10/16/21 05:42 Temperature 97.7 F 97.6 F 97.6 F Pulse Rate 78 69 70 Respiratory Rate 18 18 18 Blood Pressure 120/50 L 122/55 L 133/51 L Pulse Oximetry 94 95 93 Intake/Output Intake/Output: Intake & Output 10/13/21 10/14/21 10/15/21 10/16/21 23:59 23:59 23:59 23:59 Intake Total 1050 3930 1540 Output Total 200 400 600 Balance 850 3530 940 Meds/Results Medications: Active Medications Generic Name Dose Route Start Last Admin Trade Name Freq PRN Reason Stop Dose Admin Acetaminophen 1,000 mg 10/15/21 12:09 10/16/21 08:30 Acetaminophen 500 Mg Tablet PO 1,000 mg Q6H PRN Administration Pain RATED 1-3 Albuterol 2 puff 10/15/21 15:50 10/16/21 05:38 Albuterol Sulfate (*Sp) Aerosol 1 Puff INHALATION 2 puff Q4HRT PRN Administration Shortness Of Breath Hydromorphone HCl 0.5 mg 10/14/21 23:45 Hydromorphone Hcl Inj (*Crx) 1 Mg/Ml Syr IV PUSH Q4H PRN Pain Rated 7-10 Lactated Ringer's 1,000 mls @ 150 mls/hr 10/14/21 23:45 10/16/21 00:19 Lr - Lactated Ringers Iv IV CONT 150 mls/hr .Q6H40M STARLA Administration Piperacillin/Tazobactam/Dextrose 3.375 gm in 50 mls @ 100 mls/hr 10/15/21 15:00 10/16/21 08:35 Zosyn 3.375 Gm/D5w 50ml Pm IVPB 100 mls/hr Q6H STARLA Administration Ondansetron HCl 4 mg 10/14/21 23:45 Ondansetron Inj 4 Mg/2 Ml Vial IV PUSH Q4H PRN Nausea Pantoprazole Sodium 40 mg 10/16/21 09:00 10/16/21 08:32 Pantoprazole 40 Mg Tablet PO 40 mg Q12HR STARLA Administration Umeclidinium [place] 1 puff 10/15/21 12:15 10/16/21 10:05 Umeclidinium [place] 62.5 Mcg Ellipta INHALATION 1 puff DAILY STARLA Administration Radiology Results: ITS Impressions Chest X-Ray 10/14/21 21:36 IMPRESSION: 1. Chronic hype
--- NOTE | 2021-10-16 11:43 | PM.PNGS ---
Progress Note: A&P Assessment and Plan (1) Acute biliary pancreatitis: Qualifiers: Acute pancreatitis complication: unspecified Qualified Code(s): K85.10 - Biliary acute pancreatitis without necrosis or infection Code(s): K85.10 - Biliary acute pancreatitis without necrosis or infection Status: Acute Assessment and Plan: exam benign, labs normalizing, will cont to trend at this point, stone likely already passed, will proceed c interval lyndsay if labs cont to trend towards normal early next week Subjective Subjective Date/Time Seen: 10/16/21 11:43 feels better, no further abd pain Review of Systems Review of Systems: All systems reviewed & are unremarkable except as noted in HPI and below Exam Const: General: cooperative, comfortable and no acute distress Nutritional Appearance: average body habitus Orientation/consciousness: patient oriented x3 Resp: Auscultation: clear to auscultation bilaterally Cardio: Rate: regular rate Rhythm: regular rhythm GI: Inspection: normal to inspection and distended GI Palp: Yes Soft to palpation, No Tenderness to palpation present (GI), No Guarding due to palpation present (GI) and No Rigid due to palpation Objective Data Vital Signs Vital Signs: Vital Signs - 24 hr 10/15/21 14:00 10/15/21 21:38 10/16/21 05:42 Temperature 36.5 C 36.4 C 36.4 C Pulse Rate 78 69 70 Respiratory Rate 18 18 18 Blood Pressure 120/50 L 122/55 L 133/51 L Pulse Oximetry 94 95 93 Intake/Output Intake/Output: Intake & Output 10/13/21 10/14/21 10/15/21 10/16/21 23:59 23:59 23:59 23:59 Intake Total 1050 3930 1540 Output Total 200 400 600 Balance 850 3530 940 Meds/Results Medications: Active Medications Generic Name Dose Route Start Last Admin Trade Name Freq PRN Reason Stop Dose Admin Acetaminophen 1,000 mg 10/15/21 12:09 10/16/21 08:30 Acetaminophen 500 Mg Tablet PO 1,000 mg Q6H PRN Administration Pain RATED 1-3 Albuterol 2 puff 10/15/21 15:50 10/16/21 05:38 Albuterol Sulfate (*Sp) Aerosol 1 Puff INHALATION 2 puff Q4HRT PRN Administration Shortness Of Breath Hydromorphone HCl 0.5 mg 10/14/21 23:45 Hydromorphone Hcl Inj (*Crx) 1 Mg/Ml Syr IV PUSH Q4H PRN Pain Rated 7-10 Lactated Ringer's 1,000 mls @ 150 mls/hr 10/14/21 23:45 10/16/21 00:19 Lr - Lactated Ringers Iv IV CONT 150 mls/hr .Q6H40M STARLA Administration Piperacillin/Tazobactam/Dextrose 3.375 gm in 50 mls @ 100 mls/hr 10/15/21 15:00 10/16/21 08:35 Zosyn 3.375 Gm/D5w 50ml Pm IVPB 100 mls/hr Q6H STARLA Administration Ondansetron HCl 4 mg 10/14/21 23:45 Ondansetron Inj 4 Mg/2 Ml Vial IV PUSH Q4H PRN Nausea Pantoprazole Sodium 40 mg 10/16/21 09:00 10/16/21 08:32 Pantoprazole 40 Mg Tablet PO 40 mg Q12HR STARLA Administration Umeclidinium [place] 1 puff 10/15/21 12:15 10/16/21 10:05 Umeclidinium [place] 62.5 Mcg Ellipta INHALATION 1 puff DAILY STARLA Administration Radiology Results: ITS Impressions Chest X-Ray 10/14/21 21:36 IMPRESSION: 1. Chronic hyperinflation. 2. Moderate hiatal hernia. Abdomen/Pelvis CT 10/14/21 22:56 IMPRESSION: 1. Cholelithiasis. Moderately distended gallbladder and biliary system without obstructing choledocholithiasis identified. Correlate with bilirubin levels, consider ultrasound or HIDA scan if indicated clinically. 2. Resolution of previously seen multiloculated liver fluid collection at the gallbladder fossa, probably resolution of abscess. 3. Mid abdominal aortic 4.4 cm aneurysm unchanged. 4. Moderate to large gastroesophageal hiatal hernia. 5. Emphysema. Labs Labs: Laboratory Results - last 24 hr 10/16/21 10/16/21 10/16/21 05:37 05:37 05:37 WBC 8.9 RBC 3.69 L Hgb 9.8 L Hct 31.1 L MCV 84.3 MCH 26.6 MCHC 31.5 L RDW 15.9 H Plt Count 104 L MPV 10.2 Sodium 133 L Potassium 3.7 Chlori
[2021-10-16 14:00] VITALS: BP 124/41; PULSE 70; RESP 18; TEMP 36.5; O2SAT 97
[2021-10-16 22:00] VITALS: BP 151/67; PULSE 66; RESP 20; TEMP 36.1; O2SAT 98
[2021-10-17] MEDS: ALBUTEROL SULFATE (*SP) AEROSOL 1 PUFF 2 PUFF INHALATION ×2 (03:35→12:55)
[2021-10-17] MEDS: FUROSEMIDE INJ 40 MG/4 ML VIAL IV PUSH (04:10)
[2021-10-17 06:00] VITALS: BP 160/68; PULSE 72; RESP 16; TEMP 36.1; O2SAT 94
[2021-10-17 06:22] LABS: Hematocrit 35.3 % (42.0-52.0); Hemoglobin 11.4 g/dL (14.0-18.0); Mean Corpuscular HGB Conc 32.3 g/dl (32-36); Mean Corpuscular Hemoglobin 26.5 pg (26-34); Mean Corpuscular Volume 81.9 fl (80-100); Mean Platelet Volume 10.4 fl (7.4-10.4); Platelet Count Result 152 k/mm3 (150-375); Red Blood Count 4.31 M/mm3 (4.6-6.20); Red Cell Distribution Width 15.9 % (11.5-14.5); White Blood Count 9.7 K/mm3 (4.5-10.0)
[2021-10-17 06:47] LABS: Alanine Aminotransferase 60 U/L (4-50); Albumin Level 3.2 g/dL (3.5-5.1); Alkaline Phosphatase 237 U/L (38-126); Anion Gap 9 mmol/L (8-16); Aspartate Amino Transferase 29 U/L (17-59); Bilirubin,Total 1.8 mg/dL (0.2-1.3); Blood Urea Nitrogen 9 mg/dL (9-20); Calcium 8.6 mg/dL (8.4-10.2); Carbon Dioxide 25 mmol/L (22-30); Chloride 105 mmol/L (98-107); Estimated CRCL calculation 53 ml/min; Estimated Glomerular Filt Rate > 60; Glucose 132 mg/dL (65-110); Lipase 1813 U/L (23-300); Magnesium 1.9 mg/dL (1.6-2.3); Potassium 3.4 mmol/L (3.4-5.0); Sodium 139 mmol/L (137-145)
[2021-10-17] MEDS: PANTOPRAZOLE 40 MG TABLET PO (08:00)
[2021-10-17] MEDS: UMECLIDINIUM BROMIDE 62.5 MCG ELLIPTA 1 PUFF INHALATION (08:32)
--- NOTE | 2021-10-17 09:02 | PM.PNGS ---
Progress Note: A&P Assessment and Plan (1) Acute biliary pancreatitis: Qualifiers: Acute pancreatitis complication: unspecified Qualified Code(s): K85.10 - Biliary acute pancreatitis without necrosis or infection Code(s): K85.10 - Biliary acute pancreatitis without necrosis or infection Status: Acute Assessment and Plan: resolving, exam benign and labs normalizing, long d/w pt and he wishes to go home c plans for interval cholecystectomy as outpt, would recheck LFTs next wk and f/u c me to schedule surgery, cont low fat diet as outpt Subjective Subjective Date/Time Seen: 10/17/21 09:02 feels good, tracey low fat diet Review of Systems Review of Systems: All systems reviewed & are unremarkable except as noted in HPI and below Exam Const: General: cooperative, comfortable and no acute distress Resp: Auscultation: clear to auscultation bilaterally Cardio: Rate: regular rate Rhythm: regular rhythm GI: Inspection: normal to inspection and non-distended GI Palp: Yes Soft to palpation, No Tenderness to palpation present (GI) and No Guarding due to palpation present (GI) Objective Data Vital Signs Vital Signs: Vital Signs - 24 hr 10/16/21 14:00 10/16/21 22:00 10/17/21 06:00 Temperature 36.5 C 36.1 C L 36.1 C L Pulse Rate 70 66 72 Respiratory Rate 18 20 16 Blood Pressure 124/41 L 151/67 H 160/68 H Pulse Oximetry 97 98 94 Intake/Output Intake/Output: Intake & Output 10/14/21 10/15/21 10/16/21 10/17/21 23:59 23:59 23:59 23:59 Intake Total 1050 3930 5950 900 Output Total 772 140 3238 1000 Balance 850 3530 4625 -100 Meds/Results Medications: Active Medications Generic Name Dose Route Start Last Admin Trade Name Freq PRN Reason Stop Dose Admin Acetaminophen 1,000 mg 10/15/21 12:09 10/16/21 08:30 Acetaminophen 500 Mg Tablet PO 1,000 mg Q6H PRN Administration Pain RATED 1-3 Albuterol 2 puff 10/15/21 15:50 10/17/21 03:35 Albuterol Sulfate (*Sp) Aerosol 1 Puff INHALATION 2 puff Q4HRT PRN Administration Shortness Of Breath Hydromorphone HCl 0.5 mg 10/14/21 23:45 Hydromorphone Hcl Inj (*Crx) 1 Mg/Ml Syr IV PUSH Q4H PRN Pain Rated 7-10 Piperacillin/Tazobactam/Dextrose 3.375 gm in 50 mls @ 100 mls/hr 10/15/21 15:00 10/17/21 08:45 Zosyn 3.375 Gm/D5w 50ml Pm IVPB Infused Q6H STARLA Infusion Ondansetron HCl 4 mg 10/14/21 23:45 Ondansetron Inj 4 Mg/2 Ml Vial IV PUSH Q4H PRN Nausea Pantoprazole Sodium 40 mg 10/16/21 09:00 10/17/21 08:00 Pantoprazole 40 Mg Tablet PO 40 mg Q12HR STARLA Administration Umeclidinium [place] 1 puff 10/15/21 12:15 10/17/21 08:32 Umeclidinium [place] 62.5 Mcg Ellipta INHALATION 1 puff DAILY STARLA Administration Radiology Results: ITS Impressions Chest X-Ray 10/14/21 21:36 IMPRESSION: 1. Chronic hyperinflation. 2. Moderate hiatal hernia. Abdomen/Pelvis CT 10/14/21 22:56 IMPRESSION: 1. Cholelithiasis. Moderately distended gallbladder and biliary system without obstructing choledocholithiasis identified. Correlate with bilirubin levels, consider ultrasound or HIDA scan if indicated clinically. 2. Resolution of previously seen multiloculated liver fluid collection at the gallbladder fossa, probably resolution of abscess. 3. Mid abdominal aortic 4.4 cm aneurysm unchanged. 4. Moderate to large gastroesophageal hiatal hernia. 5. Emphysema. Labs Labs: Laboratory Results - last 24 hr 10/17/21 10/17/21 05:46 05:46 WBC 9.7 RBC 4.31 L Hgb 11.4 L Hct 35.3 L MCV 81.9 MCH 26.5 MCHC 32.3 RDW 15.9 H Plt Count 152 MPV 10.4 Sodium 139 Potassium 3.4 Chloride 105 Carbon Dioxide 25 Anion Gap 9 BUN 9 D Creatinine 0.90 Estim Creat Clear Calc 53 Estimated GFR > 60 Glucose 132 H Calcium 8.6 Magnesium 1.9 Total Bilirubin 1.8 H AST 29 ALT 60 H Alkaline Phosphatase 237 H Total Pro
--- NOTE | 2021-10-17 09:10 | PCPTNOTE ---
Patient refused treatment this session due to not sleeping well the night before and wants to rest.
[2021-10-17] MEDS: POTASSIUM CHLORIDE 20 MEQ TABLET 40 MEQ PO (09:25)
[2021-10-17 13:51] VITALS: BP 131/69; PULSE 82; RESP 16; TEMP 37.2; O2SAT 95
--- NOTE | 2021-10-17 14:37 | PM.IMPN ---
Progress Note: A&P Assessment and Plan (1) Acute biliary pancreatitis: Qualifiers: Acute pancreatitis complication: unspecified Qualified Code(s): K85.10 - Biliary acute pancreatitis without necrosis or infection Code(s): K85.10 - Biliary acute pancreatitis without necrosis or infection Status: Acute Assessment and Plan: NPO Admit to regular medical floor Patient was noted to have some eosinophilia Question for malignancy? IV fluids Supportive care Surgery consulted interval history 81-year-old male with acute biliary pancreatitis seen by surgery service recommending MRCP to further evaluate, patient seen by GI will follow-up on MRCP and further recommendation to follow, patient states pain had been persistent for last couple of weeks however it was getting worse and was not resolving with OTC and prompted to ER visit, currently denies any nausea or vomiting fever or chills, remains clinically stable, will continue to monitor and further recommendation to follow. interval history, patient remains clinically stable pain is better, his lipase are trending down to 3706 [id number] upon arrival, LFTs improving, patient blood culture is growing Gram-negative bacilli started the patient Zosyn will follow-up on identification and sensitivity, patient be seen by GI and surgery service, patient will have MRCP will follow-up and further recommendation to follow. interval history, patient remains clinically stable pain is better, his lipase are trending down to 1813 [id number] upon arrival, LFTs improving, patient blood culture is growing E coli was started on Zosyn on 10/15, patient also sensitive Rocephin, patient can be discharged home will need total of 7 days of IV antibiotic, 7 days of oral antibiotics cefdinir 300 mg b.i.d. patient be seen by GI and surgery service, patient does not need MRCP and no surgery planned patient can be discharged home. (2) Tobacco abuse: Code(s): Z72.0 - Tobacco use Status: Acute Assessment and Plan: Nicotine patch as needed Patient quit (3) AAA (abdominal aortic aneurysm): Qualifiers: Presence of rupture: without rupture Qualified Code(s): I71.4 - Abdominal aortic aneurysm, without rupture Code(s): I71.4 - Abdominal aortic aneurysm, without rupture Status: Chronic Assessment and Plan: 4.4 cm continue to monitor Abdominal ultrasound q.6 months to assess for growth Not on beta-trudy (4) COPD (chronic obstructive pulmonary disease): Code(s): J44.9 - Chronic obstructive pulmonary disease, unspecified Status: Acute Assessment and Plan: Continue Spiriva Continue albuterol Not actively be wheezing Continue to monitor (5) Peripheral vascular disease: Code(s): I73.9 - Peripheral vascular disease, unspecified Status: Acute Assessment and Plan: Unchanged Subjective Date/time seen: 10/17/21 14:37 interval history 81-year-old male with acute biliary pancreatitis seen by surgery service recommending MRCP to further evaluate, patient seen by GI will follow-up on MRCP and further recommendation to follow, patient states pain had been persistent for last couple of weeks however it was getting worse and was not resolving with OTC and prompted to ER visit, currently denies any nausea or vomiting fever or chills, remains clinically stable, will continue to monitor and further recommendation to follow. interval history, patient remains clinically stable pain is better, his lipase are trending down to 3706 [id number] upon arrival, LFTs improving, patient blood culture is growing Gram-negative bacilli started the patient Cata will follow-up on identification and sensitivity, patient be seen by GI and surgery service, patient will have MRCP will follow-up and further recommendation to follow. interval history, patient remains clinicall
[2021-10-17] MEDS: cefTRIAXone 2 GM in SODIUM CHLORIDE 0.9% IV 100 ML 200 ML IVPB (16:21)
--- NOTE | 2021-10-17 16:35 | PC.NURSE ---
I spoke with Dr. Topete and notified him that MRI stated they will try to get the patient in for the MRCP tomorrow 10/18/21, but they only have two available spots for inpatient. They stated they may have to perform this on Sunday10/19/21. He stated that he still wants the patient to have the MRCP. I discussed this with Dr. Caceres who had planned on sending the patient home with IV antibiotics. I asked if he still wanted the patient to get the midline tomorrow or if he wanted to wait until the patient received the MRCP in case the patient stays inpatient. He requested we still place the midline 10/18/21 because the patient will still be receiving antibiotics and he feels the patient will benefit from a midline even if he stays inpatient. Will await plans from MRI and hospitalist tomorrow.
--- NOTE | 2021-10-17 17:11 | WPDGIPROGNO ---
Progress Note: A&P Assessment and Plan (1) E. coli septicemia: Code(s): A41.51 - Sepsis due to Escherichia coli [E. coli] Status: Acute Assessment and Plan: he has been on iv antibiotics and no more abdominal pain had previous liver abscess could have cholangitis or retained stone bile duct however bili has been trending down ? passed stone we can now get MRCP (patient was able to find vascular stent and ok to get mri)- probably not until tomorrow. If bile duct stone then he also will need ercp, otherwise cholecystectomy will be just enough (timing by surgery), continue with iv antibiotics for now (2) Elevated liver enzymes: Code(s): R74.8 - Abnormal levels of other serum enzymes Status: Acute Assessment and Plan: still high but trending down ? stone already passed (3) Cholecystitis: Code(s): K81.9 - Cholecystitis, unspecified Status: Acute Assessment and Plan: with bacteremia surgery on board (4) Gallstone pancreatitis: Code(s): K85.10 - Biliary acute pancreatitis without necrosis or infection Status: Acute Assessment and Plan: resolved, pending mrcp (5) Upper abdominal pain: Code(s): R10.10 - Upper abdominal pain, unspecified Status: Acute Subjective Date/time seen: 10/17/21 17:11 Interval history: + E coli bacteremia, he is feeling much better though Review of Systems Review of Systems: All systems reviewed & are unremarkable except as noted in HPI and below Exam Const: General: comfortable and no acute distress HENMT: General nose exam: Normal nares present Eyes: General: appearance normal, both eyes and all related structures Neck: Neck: no JVD Resp: Auscultation: clear to auscultation bilaterally Cardio: Rate: regular rate Rhythm: regular rhythm GI: Inspection: non-distended GI Palp: Yes Soft to palpation and No Guarding due to palpation present (GI) Auscultation: normal bowel sounds Skin: General skin exam: normal color Neuro: General: gait normal Speech: normal speech Extrem: General: normal to inspection Psych: Mental Status: mental status grossly normal Objective Data Vital Signs Vital Signs: Vital Signs - 24 hr 10/16/21 22:00 10/17/21 06:00 10/17/21 13:51 Temperature 97.0 F L 97.0 F L 98.9 F Pulse Rate 66 72 82 Respiratory Rate 20 16 16 Blood Pressure 151/67 H 160/68 H 131/69 Pulse Oximetry 98 94 95 Intake/Output Intake/Output: Intake & Output 10/14/21 10/15/21 10/16/21 10/17/21 23:59 23:59 23:59 23:59 Intake Total 1050 3930 5950 1110 Output Total 559 715 5662 1000 Balance 850 3530 4625 110 Meds/Results Medications: Active Medications Generic Name Dose Route Start Last Admin Trade Name Freq PRN Reason Stop Dose Admin Acetaminophen 1,000 mg 10/15/21 12:09 10/16/21 08:30 Acetaminophen 500 Mg Tablet PO 1,000 mg Q6H PRN Administration Pain RATED 1-3 Albuterol 2 puff 10/15/21 15:50 10/17/21 12:55 Albuterol Sulfate (*Sp) Aerosol 1 Puff INHALATION 2 puff Q4HRT PRN Administration Shortness Of Breath Hydromorphone HCl 0.5 mg 10/14/21 23:45 Hydromorphone Hcl Inj (*Crx) 1 Mg/Ml Syr IV PUSH Q4H PRN Pain Rated 7-10 Piperacillin/Tazobactam/Dextrose 3.375 gm in 50 mls @ 100 mls/hr 10/15/21 15:00 10/17/21 14:45 Zosyn 3.375 Gm/D5w 50ml Pm IVPB Infused Q6H STARLA Infusion Ceftriaxone Sodium 2 gm/ 100 mls @ 200 mls/hr 10/17/21 16:00 10/17/21 16:21 Sodium Chloride IVPB 200 mls/hr Q24H STARLA Administration Ondansetron HCl 4 mg 10/14/21 23:45 Ondansetron Inj 4 Mg/2 Ml Vial IV PUSH Q4H PRN Nausea Umeclidinium [place] 1 puff 10/15/21 12:15 10/17/21 08:32 Umeclidinium [place] 62.5 Mcg Ellipta INHALATION 1 puff DAILY STARLA Administration Radiology Results: ITS Impressions Chest X-Ray 10/14/21 21:36 IMPRESSION: 1. Chronic hyperinflation. 2. Moderate hiatal hernia. Abdom
[2021-10-17 22:00] VITALS: BP 142/62; PULSE 70; RESP 18; TEMP 36.9; O2SAT 96
[2021-10-18 05:52] LABS: Hematocrit 32.5 % (42.0-52.0); Hemoglobin 10.4 g/dL (14.0-18.0); Mean Corpuscular Hemoglobin 26.9 pg (26-34); Mean Platelet Volume 10.4 fl (7.4-10.4); Platelet Count Result 155 k/mm3 (150-375); Red Blood Count 3.87 M/mm3 (4.6-6.20); Red Cell Distribution Width 15.8 % (11.5-14.5); White Blood Count 9.2 K/mm3 (4.5-10.0)
[2021-10-18 06:00] VITALS: BP 139/51; PULSE 69; RESP 16; TEMP 36.6; O2SAT 94
[2021-10-18 06:06] LABS: Alanine Aminotransferase 40 U/L (4-50); Albumin Level 2.6 g/dL (3.5-5.1); Alkaline Phosphatase 167 U/L (38-126); Anion Gap 4 mmol/L (8-16); Aspartate Amino Transferase 27 U/L (17-59); Bilirubin,Total 1.1 mg/dL (0.2-1.3); Blood Urea Nitrogen 8 mg/dL (9-20); Calcium 8.1 mg/dL (8.4-10.2); Carbon Dioxide 27 mmol/L (22-30); Chloride 106 mmol/L (98-107); Estimated CRCL calculation 48 ml/min; Estimated Glomerular Filt Rate > 60; Glucose 115 mg/dL (65-110); Lipase 1159 U/L (23-300); Potassium 3.6 mmol/L (3.4-5.0); Sodium 137 mmol/L (137-145)
[2021-10-18] MEDS: ALBUTEROL SULFATE (*SP) AEROSOL 1 PUFF 2 PUFF INHALATION ×2 (08:01→13:16)
[2021-10-18] MEDS: LIDOCAINE HCL 1% LOCAL INJ 2 ML AMPUL 5 ML INFILTRATE (08:50)
--- NOTE | 2021-10-18 09:09 | WPDGIPROGNO ---
Progress Note: A&P Assessment and Plan (1) E. coli septicemia: Code(s): A41.51 - Sepsis due to Escherichia coli [E. coli] Status: Acute Assessment and Plan: normalization of bilirubin and no more abdominal pain discussed with surgery, most likely passed stone and will have lap lyndsay in about 1 week with IOC and also repeat liver enzymes- if abnormalities then ERCP (patient would like to go home and will cancel order of MRCP) plan is to complete iv antibiotics (already had picc line) and follow-up with Dr Arreguin (2) Elevated liver enzymes: Code(s): R74.8 - Abnormal levels of other serum enzymes Status: Acute Assessment and Plan: bili today is normal no more abd pain (3) Cholecystitis: Code(s): K81.9 - Cholecystitis, unspecified Status: Acute Assessment and Plan: with bacteremia but he will complete iv abx at home (already got PICC line) surgery will do lap lyndsay as outpatient and repeat lft's next week (4) Gallstone pancreatitis: Code(s): K85.10 - Biliary acute pancreatitis without necrosis or infection Status: Acute Assessment and Plan: resolved, pending mrcp (5) Upper abdominal pain: Code(s): R10.10 - Upper abdominal pain, unspecified Status: Acute Assessment and Plan: resolved Subjective Date/time seen: 10/18/21 09:09 Interval history: he just got PICC line, he is not longer symptomatic, denies any pain and tolerated diet. Review of Systems Review of Systems: All systems reviewed & are unremarkable except as noted in HPI and below Exam Const: General: comfortable and no acute distress HENMT: General nose exam: Normal nares present Eyes: General: appearance normal, both eyes and all related structures Neck: Neck: no JVD Resp: Auscultation: clear to auscultation bilaterally Cardio: Rate: regular rate Rhythm: regular rhythm GI: Inspection: non-distended GI Palp: Yes Soft to palpation, No Tenderness to palpation present (GI) and No Guarding due to palpation present (GI) Auscultation: normal bowel sounds Skin: General skin exam: normal color Neuro: General: gait normal Speech: normal speech Extrem: General: normal to inspection Psych: Mental Status: mental status grossly normal Objective Data Vital Signs Vital Signs: Vital Signs - 24 hr 10/17/21 13:51 01/10/22 22:00 10/18/21 06:00 Temperature 98.9 F 98.5 F 97.8 F Pulse Rate 82 70 69 Respiratory Rate 16 18 16 Blood Pressure 131/69 142/62 H 139/51 L Pulse Oximetry 95 96 94 Intake/Output Intake/Output: Intake & Output 10/15/21 10/16/21 10/17/21 10/18/21 23:59 23:59 23:59 23:59 Intake Total 3930 5950 1680 50 Output Total 400 1325 1650 700 Balance 3530 4625 30 -650 Meds/Results Medications: Active Medications Generic Name Dose Route Start Last Admin Trade Name Freq PRN Reason Stop Dose Admin Acetaminophen 1,000 mg 10/15/21 12:09 10/16/21 08:30 Acetaminophen 500 Mg Tablet PO 1,000 mg Q6H PRN Administration Pain RATED 1-3 Albuterol 2 puff 10/15/21 15:50 10/18/21 08:01 Albuterol Sulfate (*Sp) Aerosol 1 Puff INHALATION 2 puff Q4HRT PRN Administration Shortness Of Breath Hydromorphone HCl 0.5 mg 10/14/21 23:45 Hydromorphone Hcl Inj (*Crx) 1 Mg/Ml Syr IV PUSH Q4H PRN Pain Rated 7-10 Piperacillin/Tazobactam/Dextrose 3.375 gm in 50 mls @ 100 mls/hr 10/15/21 15:00 10/18/21 08:16 Zosyn 3.375 Gm/D5w 50ml Pm IVPB 0 mls/hr Q6H STARLA Infusion Ceftriaxone Sodium 2 gm/ 100 mls @ 200 mls/hr 10/17/21 16:00 10/17/21 17:00 Sodium Chloride IVPB Infused Q24H STARLA Infusion Ondansetron HCl 4 mg 10/14/21 23:45 Ondansetron Inj 4 Mg/2 Ml Vial IV PUSH Q4H PRN Nausea Umeclidinium [place] 1 puff 10/15/21 12:15 10/17/21 08:32 Umeclidinium [place] 62.5 Mcg Ellipta INHALATION 1 puff DAILY STARLA Administration Radiology Results: ITS Impressions Chest X-Ray 0
[2021-10-18] MEDS: UMECLIDINIUM BROMIDE 62.5 MCG ELLIPTA 1 PUFF INHALATION (09:15)
[2021-10-18] MEDS: PANTOPRAZOLE 40 MG TABLET PO (09:19)
--- NOTE | 2021-10-18 09:48 | PM.PNGS ---
Progress Note: A&P Assessment and Plan (1) Acute biliary pancreatitis: Qualifiers: Acute pancreatitis complication: unspecified Qualified Code(s): K85.10 - Biliary acute pancreatitis without necrosis or infection Code(s): K85.10 - Biliary acute pancreatitis without necrosis or infection Status: Acute Assessment and Plan: pt wants to go home and schedule interval cholecystectomy as outpt, ok to dc home on low fat diet, recheck LFTs, lipase in 1 wk and followup c me afterwards (2) E. coli septicemia: Code(s): A41.51 - Sepsis due to Escherichia coli [E. coli] Status: Acute Assessment and Plan: mgmt per primary team, home c PICC and IV abx Subjective Subjective Date/Time Seen: 10/18/21 09:48 feels good, tracey low fat diet, wants to go home Review of Systems Review of Systems: All systems reviewed & are unremarkable except as noted in HPI and below Exam Const: General: cooperative, comfortable and no acute distress Resp: Effort & Inspection: normal respiratory effort Auscultation: clear to auscultation bilaterally Cardio: Rate: regular rate Rhythm: regular rhythm GI: Inspection: normal to inspection and non-distended GI Palp: Yes Soft to palpation, No Tenderness to palpation present (GI) and No Guarding due to palpation present (GI) Objective Data Vital Signs Vital Signs: Vital Signs - 24 hr 10/17/21 13:51 10/17/21 22:00 10/18/21 06:00 Temperature 37.2 C 36.9 C 36.6 C Pulse Rate 82 70 69 Respiratory Rate 16 18 16 Blood Pressure 131/69 142/62 H 139/51 L Pulse Oximetry 95 96 94 Intake/Output Intake/Output: Intake & Output 10/15/21 10/16/21 10/17/21 10/18/21 23:59 23:59 23:59 23:59 Intake Total 3930 5950 1680 50 Output Total 400 1325 1650 700 Balance 3530 4691 30 -650 Meds/Results Medications: Active Medications Generic Name Dose Route Start Last Admin Trade Name Freq PRN Reason Stop Dose Admin Acetaminophen 1,000 mg 10/15/21 12:09 10/16/21 08:30 Acetaminophen 500 Mg Tablet PO 1,000 mg Q6H PRN Administration Pain RATED 1-3 Albuterol 2 puff 10/15/21 15:50 10/18/21 08:01 Albuterol Sulfate (*Sp) Aerosol 1 Puff INHALATION 2 puff Q4HRT PRN Administration Shortness Of Breath Hydromorphone HCl 0.5 mg 10/14/21 23:45 Hydromorphone Hcl Inj (*Crx) 1 Mg/Ml Syr IV PUSH Q4H PRN Pain Rated 7-10 Piperacillin/Tazobactam/Dextrose 3.375 gm in 50 mls @ 100 mls/hr 10/15/21 15:00 10/18/21 09:19 Zosyn 3.375 Gm/D5w 50ml Pm IVPB 100 mls/hr Q6H STARLA Infusion Ceftriaxone Sodium 2 gm/ 100 mls @ 200 mls/hr 10/17/21 16:00 10/17/21 17:00 Sodium Chloride IVPB Infused Q24H STARLA Infusion Ondansetron HCl 4 mg 10/14/21 23:45 Ondansetron Inj 4 Mg/2 Ml Vial IV PUSH Q4H PRN Nausea Pantoprazole Sodium 40 mg 10/18/21 09:15 10/18/21 09:19 Pantoprazole 40 Mg Tablet PO 40 mg Q12HR STARLA Administration Sodium Chloride 10 ml 10/18/21 14:00 Saline Lock Flush IV PUSH Q8HR STARLA Sodium Chloride 10 ml 10/18/21 09:20 Saline Lock Flush IV PUSH PRN PRN Flush Sodium Chloride 20 ml 10/18/21 09:20 Saline Lock Flush IV PUSH PRN PRN after blood draws Umeclidinium [place] 1 puff 10/15/21 12:15 10/18/21 09:15 Umeclidinium [place] 62.5 Mcg Ellipta INHALATION 1 puff DAILY STARLA Administration Radiology Results: ITS Impressions Chest X-Ray 10/14/21 21:36 IMPRESSION: 1. Chronic hyperinflation. 2. Moderate hiatal hernia. Abdomen/Pelvis CT 10/14/21 22:56 IMPRESSION: 1. Cholelithiasis. Moderately distended gallbladder and biliary system without obstructing choledocholithiasis identified. Correlate with bilirubin levels, consider ultrasound or HIDA scan if indicated clinically. 2. Resolution of previously seen multiloculated liver fluid collection at the gallbladder fossa, probably resolution of abscess. 3. Mid abdominal aortic 4.4 cm
--- NOTE | 2021-10-18 12:42 | PM.DS ---
DS: Admitting Diagnosis Discharge Date 10/18/21 Admitting Diagnosis (1) Acute biliary pancreatitis: Qualifiers: Acute pancreatitis complication: unspecified Qualified Code(s): K85.10 - Biliary acute pancreatitis without necrosis or infection Code(s): K85.10 - Biliary acute pancreatitis without necrosis or infection Status: Acute (2) Tobacco abuse: Code(s): Z72.0 - Tobacco use Status: Acute (3) AAA (abdominal aortic aneurysm): Qualifiers: Presence of rupture: without rupture Qualified Code(s): I71.4 - Abdominal aortic aneurysm, without rupture Code(s): I71.4 - Abdominal aortic aneurysm, without rupture Status: Chronic (4) COPD (chronic obstructive pulmonary disease): Code(s): J44.9 - Chronic obstructive pulmonary disease, unspecified Status: Acute (5) Peripheral vascular disease: Code(s): I73.9 - Peripheral vascular disease, unspecified Status: Acute DS: Discharge Diagnosis Discharge Diagnosis (1) Acute biliary pancreatitis: Qualifiers: Acute pancreatitis complication: unspecified Qualified Code(s): K85.10 - Biliary acute pancreatitis without necrosis or infection Code(s): K85.10 - Biliary acute pancreatitis without necrosis or infection Status: Acute (2) Tobacco abuse: Code(s): Z72.0 - Tobacco use Status: Acute Assessment and Plan: Nicotine patch as needed Patient quit (3) AAA (abdominal aortic aneurysm): Qualifiers: Presence of rupture: without rupture Qualified Code(s): I71.4 - Abdominal aortic aneurysm, without rupture Code(s): I71.4 - Abdominal aortic aneurysm, without rupture Status: Chronic Assessment and Plan: 4.4 cm continue to monitor Abdominal ultrasound q.6 months to assess for growth Not on beta-trudy (4) COPD (chronic obstructive pulmonary disease): Code(s): J44.9 - Chronic obstructive pulmonary disease, unspecified Status: Acute Assessment and Plan: Continue Spiriva Continue albuterol Not actively be wheezing Continue to monitor (5) Peripheral vascular disease: Code(s): I73.9 - Peripheral vascular disease, unspecified Status: Acute Assessment and Plan: Unchanged DS: Summary Hospital Course Reason for hospitalization: Abdominal pain Hospital Course: 10/14/21 NPO Admit to regular medical floor Patient was noted to have some eosinophilia Question for malignancy? IV fluids Supportive care Surgery consulted interval history 81-year-old male with acute biliary pancreatitis seen by surgery service recommending MRCP to further evaluate, patient seen by GI will follow-up on MRCP and further recommendation to follow, patient states pain had been persistent for last couple of weeks however it was getting worse and was not resolving with OTC and prompted to ER visit, currently denies any nausea or vomiting fever or chills, remains clinically stable, will continue to monitor and further recommendation to follow. interval history, patient remains clinically stable pain is better, his lipase are trending down to [id number] upon arrival, LFTs improving, patient blood culture is growing Gram-negative bacilli started the patient Zosyn will follow-up on identification and sensitivity, patient be seen by GI and surgery service, patient will have MRCP will follow-up and further recommendation to follow. interval history, patient remains clinically stable pain is better, his lipase are trending down to [id number] upon arrival, LFTs improving, patient blood culture is growing E coli was started on Zosyn on 10/15, patient also sensitive Rocephin, patient can be discharged home will need total of 7 days of IV antibiotic, 7 days of oral antibiotics cefdinir 300 mg b.i.d. patient be seen by GI and surgery service, patient does not need MRCP and no surgery planne
[2021-10-18 13:55] VITALS: BP 162/71; PULSE 78; RESP 24; TEMP 37; O2SAT 95
--- NOTE | 2021-10-18 14:18 | PCPTNOTE ---
Pt refused treatment since he is going home this afternoon he doesn't want to get too tired.
[2021-10-18] MEDS: SALINE LOCK FLUSH 10 ML IV PUSH (14:22)
[2021-10-18] MEDS: cefTRIAXone 2 GM in SODIUM CHLORIDE 0.9% IV 100 ML 200 ML IVPB (15:00)
== END 2021-10-18 17:00 | disposition home or self-care (01) | DRG 439 ==
LOC: ANHED 23:27 → ANH2MED 10-15 00:56
PROVIDERS: Emergency Medicine; Family Medicine; Internal Medicine Gastroenterology; Admitting Provider Internal Medicine; Emergency Provider Emergency Medicine; PCP Internal Medicine; Visit Provider Internal Medicine
DX: K85.10 Biliary acute pancreatitis without necrosis or infection (principal); R78.81 Bacteremia; K81.0 Acute cholecystitis; B96.20 Unspecified Escherichia coli [E. coli] as the cause of diseases classified elsewhere; K81.9 Cholecystitis, unspecified; R74.8 Abnormal levels of other serum enzymes; Z20.822 Contact with and (suspected) exposure to COVID-19; I71.4 Abdominal aortic aneurysm, without rupture; E11.51 Type 2 diabetes mellitus with diabetic peripheral angiopathy without gangrene; I73.9 Peripheral vascular disease, unspecified; K21.9 Gastro-esophageal reflux disease without esophagitis; E55.9 Vitamin D deficiency, unspecified; F17.210 Nicotine dependence, cigarettes, uncomplicated; J43.9 Emphysema, unspecified
CPT/HCPCS: 36415; 36569; 51701; 71045; 74177; 80053; 80074; 81001; 83605; 83690; 83735; 85025; 85027; 87040; 87077; 87186; 87804; 93005; 94640; 96365; 96375; 97110; 97161; 97165; 99285; A9270; C1751; C9803; J0696; J1170; J1940; J2405; J2543; J7030; J7120; Q9967; U0003; U0005

== ENCOUNTER 2021-10-24 12:13 | Outpatient (RCR) | payer OTHER, SELFPAY | END 2022-01-22 23:59 | disposition home or self-care (01) | LOC: ANHVASCINF 12:13 | PROVIDERS: PCP Internal Medicine; Visit Provider Hospitalist | DX: A41.51 Sepsis due to Escherichia coli [E. coli] (principal) | CPT/HCPCS: 99211; G0463 ==

== ENCOUNTER 2021-11-14 16:15 | Emergency (ER) | payer OTHER, SELFPAY ==
[2021-11-14] VITALS (39 sets, daily range): BP systolic 118–156; BP diastolic 66–84; PULSE 77–116; RESP 16–27; TEMP 36.4; O2SAT 79–99
--- NOTE | ~2021-11-14 | CT_ITS ---
EXAMINATION: CTA chest PE protocol DATE: 11/14/2021 20:19 INDICATION: Dyspnea. TECHNIQUE: Computed tomography angiography (CTA) of the chest was performed with 100 mL Omnipaque-350 intravenous contrast timed to evaluate the pulmonary arteries. Coronal maximum intensity projection 3D-reconstructions were created by the technologist. Automated exposure control and iterative reconst ruction technique were employed. The dose-length product was 246.35 mGy-cm. COMPARISON: Chest CT 06/25/2021, CT abdomen and pelvis 10/14/2021, 06/29/2021 FINDINGS: There is mild scarring at the lung apices. There is severe emphysema. There are mild patchy groundglass opacities in the lower lobes and left upper lobe. There is a 4 mm nodule in right upper lobe, likely benign. There is mucous plugging in right lower lobe. No pleural effusion. There is a la rge sliding hiatal hernia. Partially visualized is a 4.4 cm fusiform infrarenal aortic aneurysm. Ther e is a gallstone in the gallbladder, which is normal in size. The heart size is normal. No pericardia l effusion. There is no pulmonary embolus. There is chronic mild mediastinal and bilateral hilar lymp hadenopathy, likely reactive. There is mild thoracic spondylosis and severe cervical spondylosis. IMPRESSION: 1. No pulmonary embolus. 2. Mild patchy groundglass opacities in the lower lobes and left upper lobe, consistent with COVID-19 pneumonia. 3. Severe emphysema. 4. Large sliding hiatal hernia. 5. 4.4 cm fusiform infrarenal aortic aneurysm, stable from 06/29/2021. Reviewed, dictated and finalized at location E. PATIONAL HEALTH NURSE IMPRESSION: 1. No pulmonary embolus. 2. Mild patchy groundglass opacities in the lower lobes and left upper lobe, co nsistent with COVID-19 pneumonia. 3. Severe emphysema. 4. Large sliding hiatal hernia. 5. 4.4 cm fusiform infrarenal aortic aneurysm, stable from 06/29/2021.
--- NOTE | ~2021-11-14 | XR_ITS ---
EXAMINATION: XR chest 1V portable DATE: 11/14/2021 18:26 INDICATION: Weakness. TECHNIQUE: A single frontal view of the chest was obtained. COMPARISON: Chest single view 10/14/2021, CT abdomen and pelvis 10/14/2021 FINDINGS: The lungs demonstrate lucencies and reticular opacities with architectural distortion, cons istent with emphysema. No pleural effusion or pneumothorax. The heart size is normal. There is a larg e hiatal hernia. IMPRESSION: 1. Severe emphysema. 2. Large hiatal hernia. Reviewed, dictated and finalized at location E. ER CORE TESTER
--- NOTE | 2021-11-14 18:16 | ECG_ITS ---
Measurements Intervals [place] Rate: 88 P: 88 ND: 128 QRS: 77 QRSD: 121 T: 70 QT: 412 QTc: 501 Interpretive Statements SINUS RHYTHM ATRIAL PREMATURE COMPLEXES RIGHT BUNDLE BRANCH BLOCK MINIMAL Q WAVES- ANTEROLAT/INF LEADS ABNORMAL ECG Electronically Signed On 11-15-2021 7:40:58 [employer] INS[employer] INST[employer]ER by Parker Mcgowan D.O.
[2021-11-14 18:24] LABS: Basophils Percent Auto 0.2 % (0.2-1.2); Eosinophils Percent Auto 0.2 % (0-4.4); Hematocrit 49.4 % (42.0-52.0); Hemoglobin 15.1 g/dL (14.0-18.0); Immature Granulocyte Percent A 0.6 % (0-0.5); Lymphocytes Absolute Auto 1.73 K/mm3 (0.9-3.2); Lymphocytes Percent Auto 10.7 % (18.3-44.2); Mean Corpuscular HGB Conc 30.6 g/dl (32-36); Mean Corpuscular Hemoglobin 25.7 pg (26-34); Monocytes Percent Auto 6.3 % (2.6-8.5); Neutrophils Absolute Auto 13.2 K/mm3 (1.3-6.7); Platelet Count Result 276 k/mm3 (150-375); Red Blood Count 5.88 M/mm3 (4.6-6.20); Red Cell Distribution Width 15.7 % (11.5-14.5); White Blood Count 16.1 K/mm3 (4.5-10.0)
--- NOTE | 2021-11-14 18:26 | ED.GENADULT ---
HPI - General Adult General Chief complaint: Weakness Stated complaint: covid+ 2weeks ago. Time Seen by Provider: 11/14/21 18:04 Source: patient and RN notes reviewed History of Present Illness HPI narrative: Patient is a 81 y/o male complaining of moderate generalized weakness for several months since June. He states that he has been using a walker for last 2 weeks. His weakness has been gradually getting worse. He has no pain. He has a slight cough. He tested positive for COVID recently. He has no fever or SOB. Related Data Home Medications Medication Instructions Recorded Confirmed acetaminophen 1,000 mg PO Q6H PRN 10/15/21 11/14/21 Allergies Allergy/AdvReac Type Severity Reaction Status Date / Time No Known Allergies Allergy Verified 10/24/21 13:01 Review of Systems Constitutional: Constitutional: Denies chills, Denies fever(s), Denies headache(s) and Reports weakness Eyes: Eyes: Denies blurry vision ENT: Denies headache(s) and Denies neck pain Cardiovascular: Cardiovascular: Denies chest pain and Denies dyspnea Respiratory: Respiratory: Denies cough and Denies dyspnea Gastrointestinal: Gastrointestinal: Denies abdominal pain, Denies diarrhea, Denies nausea and Denies vomiting Genitourinary: Genitourinary: Denies hematuria and Denies dysuria Musculoskeletal: Musculoskeletal: Denies back pain and Denies neck pain Neurologic: Denies headache(s) and Reports weakness PMFSH Past Medical History Medical History AAA (abdominal aortic aneurysm) CT scan 06/29/21 showed infrarenal AAA 4.4 cm He is followed by vascular surgery Cholecystitis COPD (chronic obstructive pulmonary disease) Diabetes mellitus Elevated liver enzymes Gallstone pancreatitis GERD (gastroesophageal reflux disease) Peripheral vascular disease Stenosis of lower extremity artery Stent in leg 2020 Tobacco abuse Upper abdominal pain Vitamin D deficiency disease Surgical History Surgical History No significant past surgical history Family History Family History Father Cerebrovascular accident, Onset Age: 74 Family history of diabetes mellitus Social History Social History Social History: Caffeine-coffee Smoking packs per day: 0.05 Smoking cigarettes per day: 1.0 Years smoked: 40 Smoking pack-years: 2.00 Smoking status: Former smoker Tobacco type: cigarettes Second hand tobacco smoke exposure: No Additional smoking assessment comments: Only smokes 1 cigarette every couple days Alcohol intake: never Substance use: never Spiritual care concerns: No Exam Const: General: no acute distress and ill appearing Orientation/consciousness: oriented to person, oriented to place, oriented to time and patient oriented x3 HENMT: Head: normocephalic Ears: external ears normal General nose exam: Normal external nose present Eyes: General: appearance normal, both eyes and all related structures Conjunctivae: conjunctivae normal Neck: Neck: normal visual inspection and full ROM Chest: Chest palpation & inspection: normal inspection of the chest and no tenderness Resp: Effort & Inspection: normal respiratory effort Auscultation: clear to auscultation bilaterally Cardio: Rate: regular rate Rhythm: regular rhythm GI: GI Palp: No abdominal tenderness and Yes Soft to palpation Skin: General skin exam: normal color and turgor normal Neuro: General: oriented to person, oriented to place, oriented to time and patient oriented x3 Cognition (Neuro): normal cognition Extrem: General: normal to inspection, full ROM and no pedal edema Psych: Appearance: grossly normal Mental Status: mental status grossly normal Affect: normal affect Course Vital Signs Vital signs: Vital Signs Temp
[2021-11-14 18:37] LABS: Alanine Aminotransferase 14 U/L (4-50); Albumin Level 3.7 g/dL (3.5-5.1); Alkaline Phosphatase 91 U/L (38-126); Anion Gap 5 mmol/L (8-16); Aspartate Amino Transferase 24 U/L (17-59); Bilirubin,Total 1.2 mg/dL (0.2-1.3); Blood Urea Nitrogen 23 mg/dL (9-20); Carbon Dioxide 30 mmol/L (22-30); Chloride 110 mmol/L (98-107); Estimated CRCL calculation 43 ml/min; Estimated Glomerular Filt Rate 58; Glucose 156 mg/dL (65-110); Potassium 3.6 mmol/L (3.4-5.0); Sodium 145 mmol/L (137-145)
[2021-11-14 19:29] LABS: Alveolar/Arterial O2 Gradient 42.1 mmHg; Base Excess ABG 1.8 mEq/l (+/-2.0); Device ROOM AIR; Fractional Inspired Oxygen 21 %; HCO3 ABG 25.3 mEq/l (22.0-26.0); Oxygen Content ABG 18.1 %vol (16.0-22.0); Oxygen Saturation ABG 93.7 % (95.0-100.0); Oxyhemoglobin 91.8 % THb (90.0-100.0); PCO2 ABG 36.2 mmHg (35.0-45.0); PO2 ABG 64.3 mmHg (80.0-100.0); PO2 FiO2 Ratio Arterial Blood 3.06 %; Site Drawn RIGHT BRACHIAL; pH ABG 7.462 (7.350-7.450)
[2021-11-14] MEDS: SODIUM CHLORIDE 0.9% IV 1,000 ML 999 ML IV CONT (20:47)
[2021-11-14 22:23] LABS: Add Urine Microscopic? YES; Appearance Urine Clear (Clear); Bilirubin Urine Negative (Negative); Blood Urine Negative (Negative); Color Urine Yellow (Yellow); Glucose Urine UA Negative (Negative); Ketones Urine 1+ mg/dL (Negative); Leukocyte Esterase Ur Negative LEU/UL (Negative); Mucus Urine Few /lpf; Nitrate Urine Negative (Negative); Protein Urine 1+ mg/dL (Negative); Squamous Epithelial Cell Urine Many /hpf (Few)
[2021-11-14 22:25] LABS: Specific Grav Ur 1.005 (1.001-1.035)
[2021-11-15] VITALS (9 sets, daily range): BP systolic 145–158; BP diastolic 74–82; PULSE 90–98; RESP 18–38; O2SAT 94
--- NOTE | 2021-11-15 02:13 | PC.NURSE ---
0045- RN contacted daughter Marleni about pt being D/c from ER. daughter was upset that pt was not being admitted for dehydration and IVFs. RN went over lab results and the criteria needed for admission. Dr. Hyde notified that daughter was unhappy about pt being discharged. 124- Summer RN gave D/C papers to pt and told that this RN had gone over results with daughter on the phone.
== END 2021-11-15 01:25 | disposition home or self-care (01) ==
PROVIDERS: Emergency Provider Emergency Medicine; PCP Internal Medicine
DX: U07.1 COVID-19 (principal); J12.82 Pneumonia due to coronavirus disease 2019; R53.1 Weakness; I71.4 Abdominal aortic aneurysm, without rupture; J44.9 Chronic obstructive pulmonary disease, unspecified; E11.51 Type 2 diabetes mellitus with diabetic peripheral angiopathy without gangrene; K21.9 Gastro-esophageal reflux disease without esophagitis; E55.9 Vitamin D deficiency, unspecified; F17.210 Nicotine dependence, cigarettes, uncomplicated; I49.1 Atrial premature depolarization; I45.10 Unspecified right bundle-branch block
CPT/HCPCS: 36415; 36600; 71045; 71275; 80053; 81001; 82805; 85025; 93005; 99284; J7030; Q9967

== ENCOUNTER 2023-02-27 14:25 | Outpatient (CLI) | payer OTHER, SELFPAY ==
--- NOTE | ~2023-02-27 | XR_ITS ---
XR chest 2V 02/27/2023 14:46 Indication: Cough and shortness of breath Procedure: 2 view chest Comparison: Comparison to multiple prior studies sequentially, with oldest reviewed study dated 06/25. Findings: Moderate size hiatal hernia. Heart size normal. No focal air space disease, pulmonary edema , pleural effusion or suspected pneumothorax. The lungs are hyperinflated which is consistent with, b ut not diagnostic of chronic obstructive pulmonary disease. Impression: 1: No acute cardiopulmonary disease. Reviewed, dictated and finalized at location L. Impression: 1: No acute cardiopulmonary disease.
== END 2023-02-27 14:26 ==
LOC: GOSHIMG 14:26
PROVIDERS: PCP Internal Medicine; Visit Provider Clinical Nurse Specialist
DX: R05.9 Cough, unspecified (principal); R06.02 Shortness of breath
CPT/HCPCS: 71046

== ENCOUNTER → 2023-10-22 13:02 | Outpatient (REF) | payer OTHER, SELFPAY ==
--- NOTE | ~2023-10-22 | CT_ITS ---
EXAMINATION: CT brain wo con DATE: 10/22/2023 13:15 INDICATION: Altered mental state, functional decline TECHNIQUE: Computed tomography (CT) of the head was performed without intravenous contrast. The mA wa s adjusted according to patient size. Iterative reconstruction technique was employed. Exam dose: 60 5.33 mGy-cm total exam DLP. COMPARISON: 06/25/2021 CT brain FINDINGS: Moderate cerebellar and prominent cerebral volume loss. There is vertebral basilar artery and bilateral carotid siphon internal carotid artery calcification. Nonspecific diminished attenuation of the cerebral white matter. There are multiple focal asymmetric areas of hypoattenuation in the left periventricular and supraventricular region, likely old infarct s. No intracranial mass lesion or hemorrhage, midline shift or mass effect is evident. No subdural or ep idural hematoma. No fracture or bone destruction of the cranial vault. The paranasal sinuses and mastoid air cells are normally developed and aerated. 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 Reviewed, dictated and finalized at location B. 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
== END ==
LOC: ANHIMG 13:02
PROVIDERS: PCP Nurse Practitioner; Visit Provider Pain Medicine Pain Medicine
DX: R53.81 Other malaise (principal); I67.2 Cerebral atherosclerosis
CPT/HCPCS: 70450

== ENCOUNTER 2023-11-02 18:08 | Emergency (ER) | payer OTHER, SELFPAY ==
[2023-11-02] VITALS (12 sets, daily range): BP systolic 113–124; BP diastolic 54–57; PULSE 66–109; RESP 13–20; TEMP 36.4; O2SAT 98–100
--- NOTE | ~2023-11-02 | CT_ITS ---
EXAMINATION: CT brain wo con DATE: 11/02/2023 18:55 INDICATION: Fall. TECHNIQUE: Computed tomography (CT) of the head was performed without intravenous contrast. The mA wa s adjusted according to patient size. Iterative reconstruction technique was employed. The dose-lengt h product was 605.33 mGy-cm. COMPARISON: Head CT 10/22/23 FINDINGS: There are scattered areas of low attenuation in the cerebral white matter and oralia. There i s an old infarct involving the left basal ganglia. There is no intracranial hemorrhage, acute infarct ion, or abnormal intracranial mass lesion. The ventricles are normal in size. There is mild mucosal t hickening in the paranasal sinuses. There are likely changes of left ocular lens replacement surgery. The mastoid air cells are normal. There is cerumen in the external auditory canals. IMPRESSION: 1. Old infarct involving the left basal ganglia. 2. Extensive nonspecific cerebral white matter disease and pontine disease, which likely represents c hronic small vessel ischemic disease. Reviewed, dictated and finalized at location E. ROLLER IMPRESSION: 1. Old infarct involving the left basal ganglia. 2. Extensive nonspecific cerebral white matter disease and pontine disease, whi ch likely represents chronic small vessel ischemic disease.
--- NOTE | ~2023-11-02 | CT_ITS ---
EXAMINATION: CT cervical spine wo con DATE: 11/02/2023 18:55 INDICATION: Neck injury. Fall. TECHNIQUE: Computed tomography (CT) of the cervical spine was performed without intravenous contrast. Automated exposure control and iterative reconstruction technique were employed. The dose-length pro duct was 217.49 mGy-cm. COMPARISON: None FINDINGS: There is mild scarring at the lung apices. There is 9 degrees dextrocurvature of cervical s pine. Vertebral body heights are normal. There is severely decreased disc height from C3-C4 through C 6-C7. The following disc levels are specifically discussed: C2-C3: There is no uncovertebral joint osteoarthritis. There is mild right and severe left facet join t osteoarthritis. There is no neural foraminal stenosis. There is no central canal stenosis. C3-C4: There is severe bilateral uncovertebral joint osteoarthritis. There is severe bilateral facet joint osteoarthritis. There is mild bilateral neural foraminal stenosis. There is mild central canal stenosis. C4-C5: There is ankylosis of the uncovertebral joints with mild hypertrophy. There is ankylosis of th e facet joints with mild right and moderate left hypertrophy. There is mild bilateral neural foramina l stenosis. There is mild central canal stenosis. C5-C6: There is severe bilateral uncovertebral joint osteoarthritis. There is severe right and modera te left facet joint osteoarthritis. There is mild bilateral neural foraminal stenosis. There is mild central canal stenosis. C6-C7: There is severe bilateral uncovertebral joint osteoarthritis. There is severe bilateral facet joint osteoarthritis. There is mild right and moderate left neural foraminal stenosis. There is mild central canal stenosis. C7-T1: There is no uncovertebral joint osteoarthritis. There is mild right and severe left facet join t osteoarthritis. There is mild left neural foraminal stenosis. There is no central canal stenosis. IMPRESSION: 1. No fracture. 2. Severe cervical spondylosis. Reviewed, dictated and finalized at location E. L CLEANER
[2023-11-02 18:18] LABS: Glucose Point of Care 127 mg/dl (65-105)
--- NOTE | 2023-11-02 18:40 | ED.GENADULT ---
HPI - General Adult General Chief complaint: Fall Stated complaint: fall Time Seen by Provider: 11/02/23 18:27 Source: patient Mode of arrival: EMS Limitations: no limitations History of Present Illness HPI narrative: this is a has 83-year-old male with recent history of are give stroke and right-sided flaccid paralysis presenting to the ED via EMS from rehab center for chief complaint of a fall. The fall was unwitnessed. he was found down in his bedroom, appearing to transfer from wheelchair to his bed. He was sent here for imaging as he was recently started on dual anti-platelet agents. he is alert and oriented times 1, baseline. He has aphasia at baseline as well. Family is here and supplementing the history and confirmed that his mental status and aphasia and weakness are all baseline. they do not wish to have any further workup besides imaging today. they state he has been doing relatively well at rehab center and is scheduled to be transferred out for long-term care. No recent fevers, chills, cough or feeling ill. Patient denies any pain. Related Data Home Medications Medication Instructions Recorded Confirmed aspirin 325 mg tablet 325 mg PO DAILY 10/16/23 10/16/23 atorvastatin 80 mg tablet 80 mg PO HS 10/16/23 10/16/23 clopidogrel 75 mg tablet 75 mg PO DAILY 10/16/23 10/16/23 ipratropium 0.5 mg-albuterol 3 mg 3 ml inhalation Q6H PRN shortness 10/16/23 10/16/23 (2.5 mg base)/3 mL nebulization of breath soln lisinopril 5 mg tablet 5 mg PO DAILY 10/16/23 10/16/23 Allergies Allergy/AdvReac Type Severity Reaction Status Date / Time No Known Allergies Allergy Verified 10/16/23 21:00 Review of Systems Review of Systems: All systems as dictated [place] [facility] Past Medical History Medical History COPD (chronic obstructive pulmonary disease) HTN (hypertension) Social History Social History Additional smoking assessment comments: former 1 ppd smoker per PAS Spiritual care concerns: No Exam Narrative: GENERAL: Well-appearing, well-nourished, and in no acute distress. HEAD: Normocephalic, atraumatic. EYES: PERRLA and EOMI. ENT: Nares clear, no rhinorrhea or epistaxis. Mucous membranes moist. Oropharynx without tonsillar hypertrophy exudate or other lesions. NECK: Supple. No adenopathy or masses. CHEST: No respiratory distress. Clear to auscultation. No wheezes rales or rhonchi HEART: Regular rate and rhythm. No murmur heard. Normal peripheral pulses. ABDOMEN: Soft, nontender, nondistended, normal active bowel sounds. MSK: Normal range of motion. No edema. SKIN: Warm, dry, no rash. 2 cm skin tear to the right Arm.. NEURO: Alert and oriented x1, at baseline. 0/5 strength in the right arm and right leg, baseline. No facial droop. Aphasia present, baseline. Participates appropriately with exam and attempts to answer questions appropriately. PSYCH: Normal mood and affect. Course Vital Signs Vital signs: Vital Signs Temperature 97.6 F 11/02/23 18:18 Pulse Rate 78 11/02/23 18:18 Respiratory Rate 20 11/02/23 18:18 Blood Pressure 124/54 L 11/02/23 18:18 Pulse Oximetry 98 11/02/23 18:18 Oxygen Delivery Room Air 11/02/23 18:18 Temperature 97.6 F 11/02/23 18:18 Pulse Rate 108 H 11/02/23 20:45 Respiratory Rate 18 11/02/23 20:45 Blood Pressure 113/57 L 11/02/23 20:17 Pulse Oximetry 99 11/02/23 20:45 Oxygen Delivery Room Air 11/02/23 18:18 Medical Decision Making [facility] Narrative Medical decision making narrative: This is a 83-year-old male who presents to the ED with chief complaint of a fall today. He has recent stroke and flaccid paralysis of the right side, felt the transferring from wheelchair to bed. Vitals are normal. Family is here and he and family agree that they just want in imaging workup today. No further wo
--- NOTE | 2023-11-02 19:09 | PC.NURSE ---
Report received from MARYAM Page. Assumed care of patient at this time.
== END 2023-11-02 21:13 ==
PROVIDERS: Emergency Provider Physician Assistant; PCP Nurse Practitioner
DX: S51.811A Laceration without foreign body of right forearm, initial encounter (principal); I69.320 Aphasia following cerebral infarction; I69.351 Hemiplegia and hemiparesis following cerebral infarction affecting right dominant side; J44.9 Chronic obstructive pulmonary disease, unspecified; I10 Essential (primary) hypertension; Z87.891 Personal history of nicotine dependence; Z79.82 Long term (current) use of aspirin; Z79.02 Long term (current) use of antithrombotics/antiplatelets; W05.0XXA Fall from non-moving wheelchair, initial encounter
CPT/HCPCS: 70450; 72125; 82948; 99284

== ENCOUNTER 2023-11-26 21:31 | Inpatient (IN) | payer OTHER, SELFPAY ==
[2023-11-26] VITALS (13 sets, daily range): BP systolic 86–134; BP diastolic 46–66; PULSE 94–128; RESP 26–34; TEMP 36.9; O2SAT 94–100
--- NOTE | ~2023-11-26 | XR_ITS ---
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 RESULT: Lines, tubes, and devices: None. Lungs and pleura: Rightward rotation. Emphysematous/senescent change. Biapical scarring. No focal con solidation, pleural effusion, or pneumothorax. Cardiomediastinal silhouette: Stable. Large hiatal hernia. Other: No acute osseous or upper abdominal finding. IMPRESSION: No acute cardiopulmonary process. Reviewed, dictated and finalized at location K. MAKER
--- NOTE | ~2023-11-26 | XR_ITS ---
EXAMINATION: XR chest ET placement, XR abdomen gastric tube insert DATE: 11/27/2023 09:35 INDICATION: Endotracheal tube placement and nasogastric tube insertion TECHNIQUE: 1. Frontal view of the chest for assessment of endotracheal tube position was obtained. 2. AP view of the abdomen for assessment of feeding tube positioning was obtained on 2 images. COMPARISON: Chest radiograph dated 11/26/[address] dated 11/14/2021 FINDINGS: Chest: Endotracheal tube tip 2.7 cm above the maria elena. Right internal jugular central venous catheter with di stal tip near the superior cavoatrial junction. There are subtle interstitial and airspace opacities in the right lung most prominent in the lower aldo ng zone suspicious for pneumonia superimposed over emphysema which is better appreciated on the prior CT. No pleural effusion or pneumothorax. Heart size is normal. Moderate to large hiatal hernia. Abdomen: Nasogastric tube tip in the body of the stomach with proximal side-port slightly above level of the g astroesophageal junction. No dilated loops of gas-filled bowel in the visualized abdomen. IMPRESSION: 1. Endotracheal tube in expected position. Nasogastric tube in the stomach but would recommend advanc ement by [address] proximal side-port below level of the gastroesophageal junction. 2. Right-sided interstitial and airspace opacities with lower lung predominance consistent with pneum onia superimposed over emphysema. 3. Moderate to large hiatal hernia. Reviewed, dictated and finalized at location A. NSIC TOXICOLOGIST IMPRESSION: 1. Endotracheal tube in expected position. Nasogastric tube in the stomach but would recommend advancement by [address] proximal side-port below level of the gastroesophageal junction. 2. Right-sided interstitial and airspace opacities with lower lung predominance consistent with pneumonia superimposed over emphysema. 3. Moderate to large hiatal hernia.
--- NOTE | ~2023-11-26 | XR_ITS ---
EXAMINATION: XR abdomen gastric tube insert INDICATION: Nasogastric tube placement TECHNIQUE: Portable AP KUB-[id number] at 1054 hours COMPARISON: [address] dated 10/14/2021 FINDINGS: There is a moderate-sized hiatal hernia. The NG is within the supradiaphragmatic portion of the stomach. The lung bases are clear. A right-sided catheter ends with its tip in the distal superi or vena cava. IMPRESSION: 1. Nasogastric tube within a moderate-sized hiatal hernia. Reviewed, dictated and finalized at location L. UNITY SERVICE OFFICER
--- NOTE | ~2023-11-26 | US_ITS ---
EXAMINATION: US renal BI DATE: 11/27/2023 13:43 INDICATION: Acute kidney injury TECHNIQUE: Multiple grayscale and Doppler ultrasound images of the kidneys were obtained. COMPARISON: None. FINDINGS: The right kidney measures 12.2 x 4.5 x 4.3 cm. The left kidney measures 10.4 x 5.3 x 4.0 cm . The kidneys demonstrate normal parenchymal echogenicity. There is no hydronephrosis. The bladder is decompressed by Catalan catheter. IMPRESSION: 1. Normal kidneys without hydronephrosis. Reviewed, dictated and finalized at location L. CAL CENTER REPRESENTATIVE
--- NOTE | 2023-11-26 21:39 | ECG_ITS ---
Measurements Intervals [place] Rate: 98 P: 90 SD: 128 QRS: 79 QRSD: 102 T: 74 QT: 367 QTc: 469 Interpretive Statements SINUS RHYTHM LOW QRS VOLTAGE IN PRECORDIAL LEADS [QRS DEFLECTION < 1.0 mV IN CHEST LEADS] COMPARED TO ECG 11/14/2021 18:10:32 NO SIGNIFICANT CHANGES Electronically Signed On 11-27-2023 15:21:14 COMMUNICATION COORDINATOR by Jacklyn Au M.D.
--- NOTE | 2023-11-26 21:42 | ED.GENADULT ---
HPI - General Adult General Chief complaint: Unspecified Stated complaint: LOW O2 SAT, SOB, ?CHOKED AT DINNER Time Seen by Provider: 11/26/23 21:33 History of Present Illness HPI narrative: 83-year-old male present to the emergency department from local alf for evaluation of suspected aspiration pneumonia. Patient had a choking episode during dinner and subsequently had decreased mental status and hypoxia. Patient had a recent CVA in October and was transferred to [place] then went to [facility] in over the last week he has been at [facility]. Family states the patient has had significantly decreased p.o. intake over the course of the last week. Related Data Home Medications Medication Instructions Recorded Confirmed aspirin 325 mg tablet 325 mg PO DAILY 11/27/23 11/27/23 atorvastatin 80 mg tablet 80 mg PO HS 11/27/23 11/27/23 bacitracin 500 unit/gram topical 1 applic topical DAILY 11/27/23 11/27/23 ointment clopidogrel 75 mg tablet (Plavix) 75 mg PO DAILY 11/27/23 11/27/23 famotidine 20 mg tablet (Pepcid) 20 mg PO BID 11/27/23 11/27/23 fluticasone fur. 100 mcg-umeclid 1 inh inhalation DAILY 11/27/23 11/27/23 62.5 mcg-vilant 25 mcg inhalat.powder (Trelegy Ellipta) ipratropium 0.5 mg-albuterol 3 mg 3 ml inhalation Q6H PRN Wheezing 11/27/23 11/27/23 (2.5 mg base)/3 mL nebulization soln lisinopril 5 mg tablet 5 mg PO DAILY 11/27/23 11/27/23 methylphenidate HCl 10 mg tablet 10 mg PO DAILY 11/27/23 11/27/23 mirtazapine 7.5 mg tablet 7.5 mg PO HS 11/27/23 11/27/23 Allergies Allergy/AdvReac Type Severity Reaction Status Date / Time No Known Allergies Allergy Verified 08/09/23 13:54 Review of Systems Review of Systems: All systems reviewed & are unremarkable except as noted in HPI and below PMFSH Past Medical History Medical History AAA (abdominal aortic aneurysm) CT scan 06/29/21 showed infrarenal AAA 4.4 cm He is followed by vascular surgery Cholecystitis COPD (chronic obstructive pulmonary disease) Diabetes mellitus Elevated liver enzymes Gallstone pancreatitis GERD (gastroesophageal reflux disease) Peripheral vascular disease Stenosis of lower extremity artery Stent in leg 2020 Tobacco abuse Upper abdominal pain Vitamin D deficiency disease Surgical History Surgical History No significant past surgical history Family History Family History Father Cerebrovascular accident, Onset Age: 74 Family history of diabetes mellitus Social History Social History Social History: Caffeine-coffee Smoking packs per day: 0.05 Smoking cigarettes per day: 1.0 Years smoked: 40 Smoking pack-years: 2.00 Smoking status: Former smoker Second hand tobacco smoke exposure: No Additional smoking assessment comments: Only smokes 1-2 cigarette every couple days Alcohol intake: never Substance use: never Lack of Transportation: No Lack of Food: Never True Current Housing: I Have Housing Concerned About Future Housing: No Difficulty Paying Gas/Electric Bills: No Difficulty Paying for Meds: No Currently Unemployed: No Education: High School Diploma/GED Difficulty w/ Childcare or Family Care: No Spiritual care concerns: No Exam Narrative: APPEARANCE: Linda. HEAD: normocephalic, atraumatic. EYES: PERRLA/EOMI, conjunctivae clear. NOSE: Normal no drainage EARS:TMS clear with good light reflex. THROAT: Pharynx clear, no exudate. NECK: Supple. No adenopathy, no masses. RESPIRATORY: Airway patent, respirations nonlabored. Clear to auscultation bilaterally, no rales, rhonchi, wheezing. CARDIOVASCULAR: Regular rate and rhythm without murmurs rubs or gallops. ABDOMINAL: Soft, nontender, nondistended, normal bowel sounds MUSCULOSKEL
[2023-11-26] MEDS: SODIUM CHLORIDE 0.9% IV 1,000 ML 999 ML IV CONT ×2 (22:00→23:02)
--- NOTE | 2023-11-26 22:00 | PC.NURSE ---
Daughter at bedside. States pt had CVA x6 weeks ago and is now in rehab at [facility]. Pt is aphasic due to CVA. Daughter states she visited pt earlier today and he was acting as if he needed to cough or puke something up, but other than that acting per his new normal. EDP made aware.
[2023-11-26 22:09] LABS: Basophils Absolute Auto 0.1 K/mm3 (0.0-0.1); Basophils Percent Auto 0.3 % (0.2-1.2); Eosinophils Absolute Auto 0.1 K/mm3 (0-0.3); Eosinophils Percent Auto 0.4 % (0-4.4); Hematocrit 44.3 % (42.0-52.0); Hemoglobin 12.9 g/dL (14.0-18.0); Immature Granulocyte Absolute 0.09 K/mm3 (0.00-0.031); Immature Granulocyte Percent A 0.5 % (0-0.5); Lymphocytes Percent Auto 8.2 % (18.3-44.2); Mean Corpuscular HGB Conc 29.1 g/dl (32-36); Mean Corpuscular Hemoglobin 25.7 pg (26-34); Mean Corpuscular Volume 88.4 fl (80-100); Monocytes Absolute Auto 1.1 K/mm3 (0.1-0.6); Monocytes Percent Auto 6.2 % (2.6-8.5); Neutrophils Absolute Auto 15.4 K/mm3 (1.3-6.7); Neutrophils Percent Auto 84.4 % (45.5-73.1); Platelet Count Result 310 k/mm3 (150-375); Red Blood Count 5.01 M/mm3 (4.6-6.20); Red Cell Distribution Width 18.9 % (11.5-14.5); White Blood Count 18.3 K/mm3 (4.5-10.0)
[2023-11-26 22:19] LABS: Alanine Aminotransferase 44 U/L (6-50); Albumin Level 3.8 g/dL (3.5-5.1); Alkaline Phosphatase 128 U/L (38-126); Anion Gap 20 mmol/L (8-16); Aspartate Amino Transferase 77 U/L (17-59); Bilirubin,Total 1.3 mg/dL (0.2-1.3); Blood Urea Nitrogen 104 mg/dL (9-20); Calcium 9.4 mg/dL (8.4-10.2); Carbon Dioxide 12 mmol/L (22-30); Chloride 117 mmol/L (98-107); Estimated CRCL calculation 10 ml/min; Estimated Glomerular Filt Rate 13; Glucose 121 mg/dL (65-110); Potassium 5.6 mmol/L (3.4-5.0); Sodium 149 mmol/L (137-145)
[2023-11-26 22:23] LABS: Alveolar/Arterial O2 Gradient 162.8 mmHg; Base Excess ABG -13.8 mEq/l (+/-2.0); Carboxyhemoglobin 0.3 % THb (0-2.0); Fractional Inspired Oxygen 40 %; HCO3 ABG 11.5 mEq/l (22.0-26.0); Methemoglobin ABG 0.3 %THb (0-1.5); Oxygen Content ABG 17.1 %vol (16.0-22.0); Oxygen Saturation ABG 96.2 % (95.0-100.0); Oxyhemoglobin 95.2 % THb (90.0-100.0); PO2 ABG 92.5 mmHg (80.0-100.0); PO2 FiO2 Ratio Arterial Blood 2.31 %; Reduced Hemoglobin 4.2 %THb (0-5.0); Total Hemoglobin 12.7 g/dL (12.0-18.0)
[2023-11-26 22:24] LABS: pH ABG 7.264 (7.350-7.450)
[2023-11-26 22:25] LABS: Device NASAL CANNULA; Modified Allen's Test Pass; Site Drawn RIGHT RADIAL
[2023-11-26] MEDS: ALBUTEROL SULFATE NEB 2.5 MG/3 ML INH INHALATION (22:35)
[2023-11-26 22:43] LABS: Ovalocytes 1+ (NORMAL); Platelet Estimate Adequate (Adequate); Poikilocytosis 1+ (NORMAL); Schistocytes None Seen (NORMAL)
[2023-11-26 22:46] LABS: Influenza A QL RT-PCR Negative (Negative); Influenza B QL RT-PCR Negative (Negative); RSV RNA, RT-PCR Negative (Negative); SARS-CoV-2 RNA PCR Negative (Negative)
[2023-11-26 23:09] LABS: Appearance Urine Clear (Clear); Bacteria Urine 2+ /hpf; Bilirubin Urine Negative (Negative); Blood Urine Negative (Negative); Color Urine Yellow (Yellow); Glucose Urine UA Negative (Negative); Hyaline Casts Urine Present /lpf; Ketones Urine Trace mg/dL (Negative); Leukocyte Esterase Ur Trace LEU/UL (Negative); Need Manual Microscopic Reviewed; Nitrate Urine Negative (Negative); Protein Urine Trace mg/dL (Negative); RBC Urine 0-2 /hpf (0-2); Specific Grav Ur 1.018 (1.001-1.035); Squamous Epithelial Cell Urine None seen /hpf (Few); Urobilinogen Urine 0.2 mg/dL (<2.0)
[2023-11-26 23:10] LABS: Add Urine Microscopic? YES
--- NOTE | 2023-11-26 23:19 | PM.IMHP ---
H&P: HPI History of Present Illness Date/Time: 11/26/23 23:19 Chief Complaint: altered mental status Narrative: This is an 83-year-old male WITH PAST MEDICAL HISTORY SIGNIFICANT FOR COPD, TYPE DIABETES MELLITUS, GERD, PERIPHERAL VASCULAR DISEASE, TOBACCO DEPENDENCE. PATIENT WAS BROUGHT TO THE EMERGENCY ROOM DUE TO ALTERED MENTAL STATUS POOR PER ORALLY INTAKE, MOST OF THE HISTORY HAS BEEN OBTAINED UPON REVIEWING MEDICAL RECORDS AND DAUGHTER WHO IS AT BEDSIDE. PATIENT HAS BEEN UNDERGOING REHABILITATION AND HE IS A RESIDENT AT A LOCAL [facility] IT WAS WITNESS SHOCKING ON VOMIT ACCORDING TO DAUGHTER HE HAD BEEN HIS USUAL SELF UP UNTIL SUNDAY. IN EMERGENCY ROOM PATIENT WITH RESPIRATORY DISTRESS PLACED ON SUPPLEMENTAL OXYGEN BY NASAL CANNULA. PRELIMINARY WORKUP SHOWED A SODIUM OF 149 CREATININE OF 4.3 BUN OF 100 POTASSIUM OF 5.6 A URINALYSIS WAS SIGNIFICANT FOR WBCS. PATIENT HAS BEEN ADMITTED FOR FURTHER EVALUATION MANAGEMENT AND TREATMENT. Exam Date/Time:? 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 Comparison:? 02/27/2023, 11/14/2021; CTPA 11/14/2021. RESULT: Lines, tubes, and devices:? None. Lungs and pleura: Rightward rotation. Emphysematous/senescent change. Biapical scarring. No focal consolidation, pleural effusion, or pneumothorax. Cardiomediastinal silhouette:? Stable. Large hiatal hernia. Other:? No acute osseous or upper abdominal finding. ? IMPRESSION: No acute cardiopulmonary process. Review of Systems Review of Systems: ROS unobtainable: Yes unobtainable due to mental status ( OBTUNDATION, LETHARGY) [facility] Past Medical History Medical History AAA (abdominal aortic aneurysm) CT scan 06/29/21 showed infrarenal AAA 4.4 cm He is followed by vascular surgery Cholecystitis COPD (chronic obstructive pulmonary disease) Diabetes mellitus Elevated liver enzymes Gallstone pancreatitis GERD (gastroesophageal reflux disease) Peripheral vascular disease Stenosis of lower extremity artery Stent in leg 2020 Tobacco abuse Upper abdominal pain Vitamin D deficiency disease Surgical History Surgical History No significant past surgical history Family History Family History Father Cerebrovascular accident, Onset Age: 74 Family history of diabetes mellitus Social History Social History Social History: Caffeine-coffee Smoking packs per day: 0.05 Smoking cigarettes per day: 1.0 Years smoked: 40 Smoking pack-years: 2.00 Smoking status: Former smoker Second hand tobacco smoke exposure: No Additional smoking assessment comments: Only smokes 1-2 cigarette every couple days Alcohol intake: never Substance use: never Lack of Transportation: No Lack of Food: Never True Current Housing: I Have Housing Concerned About Future Housing: No Difficulty Paying Gas/Electric Bills: No Difficulty Paying for Meds: No Currently Unemployed: No Education: High School Diploma/GED Difficulty w/ Childcare or Family Care: No Spiritual care concerns: No Meds Home Medications and Allergies Home Medications Medication Instructions Recorded Confirmed Type metformin 500 mg tablet 500 mg PO DAILY #90 tabs 08/09/23 11/27/23 Rx aspirin 325 mg tablet 325 mg PO DAILY 11/27/23 11/27/23 History atorvastatin 80 mg tablet 80 mg PO HS 11/27/23 11/27/23 History bacitracin 500 unit/gram topical 1 applic topical DAILY 11/27/23 11/27/23 History ointment clopidogrel 75 mg tablet (Plavix) 75 mg PO DAILY 11/27/23 11/27/23 History famotidine 20 mg tablet (Pepcid) 20 mg PO BID 11/27/23 11/27/23 History fluticasone fur. 100 mcg-umeclid 1 inh inhalation DAILY 11/27/23 11/27/23 History 62.5 mcg-vilant 25 mcg inhalat.powder (Trelegy Ellipta) ipratro
[2023-11-27] VITALS (60 sets, daily range): BP systolic 50–134; BP diastolic 37–97; PULSE 99–133; RESP 22–53; TEMP 34.8–37.6; O2SAT 90–100
--- NOTE | 2023-11-27 | ECHO_ITS ---
Patient Info Name: Sp Bray Age: 83 years : 1940 Gender: Male Ht: 65 in Wt: 131 lbs BSA: 1.65 m2 HR: 122 bpm BP: 105 / 56 mmHg Technical Quality: Poor Exam Date: 11/27/2023 3:49 PM Exam Location: Echo Lab Patient Status: Inpatient Admit Date: 11/27/2023 Staff Ordering Physician: Delphine Santa MD Fence Machine Operator: SELENA Attending Provider: Jaymie Sanders MD Referring Physician: Kiet LAGOS; Exam Type: CA echo doppler color flow Study Info Indications - shock Complete two-dimensional, color flow and Doppler transthoracic echocardiogram is performed with contrast to opacify the left ventricle and to improve the deliniation of the left ventricle endocardial borders. Contrast/Agitated Saline Contrast/Ag. Saline: Definity Amount: 3.00 ml Reason for Poor Study: poor echocardiographic windows Summary 1. Technically difficult study with limited views. 2. Left ventricular chamber dimension is normal. 3. Left ventricular systolic function appears to be severely reduced, estimated at <15%. 4. No significant valvular disease noted on this study, however, technically difficult study, therefore, unablet to fully assess. Left Ventricle Left ventricular chamber dimension is normal. Left ventricular systolic function appears to be severely reduced, estimated at <15%. There is mildly increased left ventricular wall thickness. Right Ventricle Right ventricular chamber dimension is normal. Left Atria Left atrial chamber dimension is normal. Right Atria Right atrial chamber dimension is normal. Aortic Valve The aortic valve is not well visualized. There is no aortic valve regurgitation. Pulmonic Valve The pulmonic valve is not well visualized. Mitral Valve There is trace mitral valve regurgitation. Tricuspid Valve There is trace tricuspid valve regurgitation. Pericardium/Pleural The pericardium appears epicardial fat pad. There is no pericardial effusion. Inferior Vena Cava Normal inferior vena cava with <50% collapse upon inspiration consistent with elevated right atrial pressure, 8 mmHg. Aorta The aortic root size at the sinus of Valsalva is normal. Left Ventricular Outflow Tract Name Value Normal LVOT 2D LVOT Diameter 2.0 cm LVOT Doppler LVOT Peak Gradient 1 mmHg LVOT Mean Gradient 1 mmHg LVOT VTI 10 cm LVOT VTI/AV VTI Ratio 0.8 LVOT Stroke Volume 30 ml LVOT CO 4.7 l/min LVOT CI 2.9 l/min/m2 Pulmonic Valve Name Value Normal RVOT Doppler RVOT Peak Gradient 1 mmHg PV Doppler PV Peak Gradient 2 mmHg Mitral Valve
[2023-11-27] MEDS: DEXTROSE 50% 25 GM/50 ML SYRINGE IV PUSH (01:04)
[2023-11-27] MEDS: INSULIN HUMAN REGULAR (*BKC) 100 UNITS/ML IV PUSH (01:04)
[2023-11-27] MEDS: SODIUM BICARBONATE 8.4% 50 MEQ/50 ML SYRINGE IV PUSH (01:04)
[2023-11-27] MEDS: PIPERACILLN/TAZ 3.375GM/NS50ML 3.375 GM/50 ML BAG IVPB (01:05)
[2023-11-27 01:07] LABS: Reflex Lactic Acid Yes or No Add Lactic
[2023-11-27] MEDS: SODIUM ZIRCONIUM CYCLOSILICATE 10 GM POWD.PACK PO (01:11)
[2023-11-27] MEDS: VANCOMYCIN 1,000 MG/NS 250 ML 1,000 MG/250 ML BAG 250 MG IVPB (01:26)
--- NOTE | 2023-11-27 01:30 | PC.NURSE ---
This RN called phlebotomy to obtain lactic acid after unsuccessful attempt. ED respiratory also to come suction patient.
[2023-11-27 02:16] LABS: Lactic Acid 4.6 mmol/L (0.7-2.0)
[2023-11-27] MEDS: IPRATROPIUM 0.5 MG/ALBUTEROL SULFATE 2.5 MG AMPUL.NEB 3 ML INHALATION ×2 (02:19→13:30)
[2023-11-27] MEDS: DEXTROSE 5%/0.45% SOD CHL 1,000 ML 100 ML IV CONT (02:40)
[2023-11-27 03:07] LABS: Glucose Point of Care 288 mg/dl (65-105)
--- NOTE | 2023-11-27 04:26 | PC.NURSE ---
This RN contacted Dr. Sanders regarding pt status. Provider assessed pt at bedside and stated she would order another neb treatment.
[2023-11-27 05:01] LABS: MRSA (PCR) NOT DETECTED (NOT DETECTE)
--- NOTE | 2023-11-27 05:30 | ADMIMU ---
This patient, Sp Bray, was admitted to IMU status, and placed in Intensive Care Unit-1. Patient/family oriented to hospital policies and general routines including ID bracelet, bed and alarms, visiting hours, pain management, procedures, bathroom and other care routines, personal items, smoking policy, room service/diet, and visiting hours. Valuables list has been completed. Information on how to activate the Rapid Response Team has been discussed. Patient/Family are encouraged to report perceived risks to care and to ask questions if they do not understand what they are told or what they should do.
[2023-11-27 05:56] LABS: Glucose Point of Care 336 mg/dl (65-105)
--- NOTE | 2023-11-27 06:17 | PC.NURSE ---
Dr. Sanders was notified of patient being 36% fluid responsive on PLR. Give 1L NS over 1 hour. Okay for sandhu catheter for accurate I and O. Notified of current vital signs, and pedal pulses unable to dopple. May place patient on vapotherm if needed.
[2023-11-27] MEDS: SODIUM CHLORIDE 0.9% IV 1,000 ML 999 ML IV CONT ×2 (06:30→08:40)
[2023-11-27 08:12] LABS: Anion Gap 18 mmol/L (8-16); Blood Urea Nitrogen 95 mg/dL (9-20); Calcium 7.8 mg/dL (8.4-10.2); Carbon Dioxide 11 mmol/L (22-30); Chloride 122 mmol/L (98-107); Estimated CRCL calculation 10 ml/min; Estimated Glomerular Filt Rate 13; Glucose 292 mg/dL (65-110); Potassium 4.9 mmol/L (3.4-5.0); Sodium 151 mmol/L (137-145)
--- NOTE | 2023-11-27 08:20 | PM.IMPN ---
Progress Note: A&P Assessment and Plan (1) Septic shock: Code(s): A41.9 - Sepsis, unspecified organism; R65.21 - Severe sepsis with septic shock Status: Acute Assessment and Plan: Blood pressure is low is 66/47, tachycardic at 1:40 a.m. white blood cell count 18 lactic acid 4.6 at last draw likely higher now accompanying renal failure with metabolic acidosis. Patient is on vancomycin and Zosyn started in the emergency department. Likely cause aspiration pneumonia, findings of possible UTI as well, urine culture pending. ICU consulted he will be intubated, central line established, started on vasopressors all at the direction of ICU physician. (2) Acute respiratory failure with hypoxia: Code(s): J96.01 - Acute respiratory failure with hypoxia Status: Acute Assessment and Plan: Secondary to aspiration pneumonia and underlying COPD. (3) Acute renal failure: Code(s): N17.9 - Acute kidney failure, unspecified Status: Acute Assessment and Plan: Likely related to septic shock with multi-system organ failure (4) Aspiration pneumonia: Code(s): J69.0 - Pneumonitis due to inhalation of food and vomit Status: Acute Assessment and Plan: Known vomiting suspected aspiration pneumonia. (5) Acute hypernatremia: Code(s): E87.0 - Hyperosmolality and hypernatremia Status: Acute Assessment and Plan: Sodium level 151. Likely dehydration related (6) Multiple organ system failure: Status: Acute Assessment and Plan: Respiratory failure, cardiac failure, renal failure, mottled extremities, cyanotic nail beds, metabolic acidosis Care per ICU team Time Spent With Patient Time with patient: Greater than 35 minutes Subjective Date/time seen: 11/27/23 07:50 Interval history: I was called to bedside by TRANSIT DRIVER due to mottled extremities, tachycardia and low body temperature. Brief review of chart shows septic shock from aspiration likely. Patient is full code. Patient is quite confused, only answering his name. Contacted patient's daughter and explained that he is very sick and the only way to prolong his life will be to intubate and place central line and give vasopressors. She wants full treatment at this time. I told patient we will need to place breathing tube and asked if this is what he wants and he said yes. Consulted Dr. Santa and Dr. Santa states he will take over patient care at 0800 this morning. Review of Systems Review of Systems: ROS unobtainable: Yes unobtainable due to medical condition Exam Narrative: GENERAL: Critically ill-appearing, labored respirations, confused, mottled HEAD: Normocephalic, atraumatic. ENT:? Dry mucous membranes CHEST: Labored respirations, tachypnea, coarse lung sounds throughout HEART: Tachycardic regular rhythm, diminished peripheral pulses with cyanotic nail beds mottled legs. Sinus tachycardia rate of 140 on telemetry monitoring by my interpretation. ABDOMEN: Involuntary guarding, tender to palpation, no distension EXTREMITIES: Cyanotic nail beds and mottled lower extremities diminished pulses no edema SKIN: Cool pale dry with cyanosis and mottling to periphery NEURO: Awake confused unknown baseline PSYCH: Unable to assess Objective Data Vital Signs Vital Signs: Vital Signs - 24 hr 11/26/23 21:33 11/26/23 21:44 11/26/23 22:35 Temperature 36.9 C Pulse Rate 98 112 H Respiratory Rate 34 H 26 H Blood Pressure 86/46 L Pulse Oximetry 98 94 Oxygen Delivery Nasal Cannula Nasal Cannula Oxygen Flow Rate 3 3 11/26/23 22:28 11/26/23 22:30 11/26/23 22:40 Temperature Pulse Rate 121 H 120 H 128 H Respiratory Rate 34 H 27 H 29 H Blood Pressure 102/54 L 98/50 L 113/51 L Pulse Oximetry 98 96 100 Oxygen Delivery Oxygen Flow Rate 11/26/23 23:06 11/26/23 22:51 11/26/23 23:00 Temperature Pulse Rate 94 100 Respiratory Rate 29 H 28 H Blood Pressu
[2023-11-27] MEDS: ROCURONIUM BROMIDE 50 MG/5 ML VIAL IV PUSH (08:28)
[2023-11-27] MEDS: ETOMIDATE 20 MG/10 ML AMPUL IV PUSH (08:28)
[2023-11-27] MEDS: NOREPINEPHRINE 8 MG/D5W 250 ML 8 MG/250 ML BAG 9.38 MG IV CONT (08:40)
[2023-11-27 09:53] LABS: Hepatitis B Surface Antigen Negative (Negative)
[2023-11-27 09:56] LABS: Alveolar/Arterial O2 Gradient 316.8 mmHg; Base Excess ABG -12.4 mEq/l (+/-2.0); Carboxyhemoglobin 0.1 % THb (0-2.0); Fractional Inspired Oxygen 100 %; HCO3 ABG 14.3 mEq/l (22.0-26.0); Methemoglobin ABG 0.5 %THb (0-1.5); Oxygen Content ABG 16.2 %vol (16.0-22.0); Oxygen Saturation ABG 99.7 % (95.0-100.0); Oxyhemoglobin 97.6 % THb (90.0-100.0); PCO2 ABG 35.6 mmHg (35.0-45.0); PO2 ABG 360.6 mmHg (80.0-100.0); PO2 FiO2 Ratio Arterial Blood 3.61 %; Reduced Hemoglobin 1.8 %THb (0-5.0); Total Hemoglobin 11.1 g/dL (12.0-18.0)
[2023-11-27 09:57] LABS: Device VENTILATOR; Site Drawn LEFT BRACHIAL; pH ABG 7.223 (7.350-7.450)
[2023-11-27 09:58] LABS: Arterial Blood Gas PEEP 5 cmH2O; Arterial Blood Gas Tidal Volume 450 ml; Arterial Blood Gas Vent Mode CMV; Arterial Blood Gas Ventilator rate 22 /MIN
[2023-11-27] MEDS: MIDAZOLAM 100MG/NS 100ML(*CRX) 100 MG/100 ML BAG IV CONT (10:00)
[2023-11-27] MEDS: FENTANYL 2,500MCG/NS250ML(*CRX 2,500 MCG/250 ML BAG IV CONT (10:00)
[2023-11-27 10:10] LABS: HIV 1/2 Ab P24 Ag Result Negative (Negative); Hepatitis C Virus Antibody Negative (Negative)
[2023-11-27 10:30] LABS: Hematocrit 35.7 % (42.0-52.0); Hemoglobin 10.4 g/dL (14.0-18.0); Mean Corpuscular HGB Conc 29.1 g/dl (32-36); Mean Corpuscular Hemoglobin 26.2 pg (26-34); Mean Corpuscular Volume 89.9 fl (80-100); Mean Platelet Volume 10.4 fl (7.4-10.4); Platelet Count Result 231 k/mm3 (150-375); Red Blood Count 3.97 M/mm3 (4.6-6.20); Red Cell Distribution Width 18.9 % (11.5-14.5); White Blood Count 12.9 K/mm3 (4.5-10.0)
[2023-11-27 10:36] LABS: INR 1.5; Prothrombin Time 19.4 Seconds (11.1-14.7)
[2023-11-27 10:37] LABS: Lactic Acid Reflex 3.7 mmol/L (0.7-2.0); Partial Thromboplastin Time 35.1 SECONDS (22.3-36.8)
[2023-11-27 10:41] LABS: Alanine Aminotransferase 33 U/L (6-50); Albumin Level 2.5 g/dL (3.5-5.1); Alkaline Phosphatase 86 U/L (38-126); Anion Gap 13 mmol/L (8-16); Aspartate Amino Transferase 63 U/L (17-59); Bilirubin,Total 1.1 mg/dL (0.2-1.3); Blood Urea Nitrogen 96 mg/dL (9-20); Carbon Dioxide 14 mmol/L (22-30); Chloride 124 mmol/L (98-107); Estimated CRCL calculation 11 ml/min; Estimated Glomerular Filt Rate 14; Glucose 251 mg/dL (65-110); Magnesium 2.2 mg/dL (1.6-2.3); Phosphorus 5.7 mg/dL (2.5-4.5); Potassium 4.7 mmol/L (3.4-5.0); Sodium 151 mmol/L (137-145)
--- NOTE | 2023-11-27 10:41 | WPDCNINT ---
Assessment and Plan Assessment and plan (1) Acute respiratory failure with hypoxia: Code(s): J96.01 - Acute respiratory failure with hypoxia Status: Acute Assessment and Plan: 11/26/2023, patient presented from [facility] with an episode of choking on his dinner, hypoxia, altered mental status. -11/27: Worsening respiratory status, impending respiratory failure with respiratory distress and hypoxia. Patient was intubated and a central line in the right IJ was inserted -continue CMV mode of ventilation, peep of 5, no 60% FiO2 after post intubation ABGs were reviewed -more likely metabolic acidosis due to septic shock and lactic acidosis -continue bronchodilators -patient is on Zosyn and vancomycin (11/26) -sedated with fentanyl Versed infusion, maintain RASS of 0 to -2: Daily spontaneous awakening trials and spontaneous breathing trials if meets the criteria (2) Septic shock: Code(s): A41.9 - Sepsis, unspecified organism; R65.21 - Severe sepsis with septic shock Status: Acute Assessment and Plan: Shock could be related to sepsis, versus intubation and sedation -elevated WBC count, elevated lactic acid which is trending down -adequately fluid-resuscitated with 4 L IV fluid bolus since admission -start sodium bicarb infusion due to severe metabolic acidosis and acute kidney injury -11/27: Right IJ central line inserted and started on Levophed, maintain MAP > 65 mmHg for adequate end organ perfusion -continue antibiotics as -11/27: Blood cultures have been ordered -11/27: Urine cultures obtained and pending -11/27: Sputum cultures have been ordered (3) Aspiration pneumonia: Code(s): J69.0 - Pneumonitis due to inhalation of food and vomit Status: Acute Assessment and Plan: Treatment as above (4) Acute kidney injury: Code(s): N17.9 - Acute kidney failure, unspecified Status: Acute Assessment and Plan: Acute kidney injury likely related to septic shock, hypotension, decreased p.o. intake, infection, has takes lisinopril at senior care, also diabetic -Patient is a been adequately fluid resuscitated with 4 L IV boluses -start patient on bicarb infusion due to severe metabolic acidosis and lactic acidosis -urinalysis was unremarkable -will check urine lytes renal ultrasound, urine eosinophils and CK level - will check renal ultrasound for hydronephrosis -continue to monitor urine electrolytes, renal function and urine output (5) COPD (chronic obstructive pulmonary disease): Qualifiers: COPD type: unspecified COPD Qualified Code(s): J44.9 - Chronic obstructive pulmonary disease, unspecified Code(s): J44.9 - Chronic obstructive pulmonary disease, unspecified Status: Acute Assessment and Plan: Continue bronchodilators a mechanical ventilator (6) Acute hypernatremia: Code(s): E87.0 - Hyperosmolality and hypernatremia Status: Acute Assessment and Plan: Hypernatremia likely related to acute kidney injury, dehydration has family states that he has not been any getting and drinking well since the time he has had his stroke. -continue IV fluids, -monitor sodium level Plan DVT prophylaxis: Lovenox SQ (renally dosed) Stress ulcer prophylaxis: Protonix Nutrition: NPO Code Status: Full code Critical Care Time Spent: 79 minutes Discussed with patient's daughter, Marleni, updated with patient's condition and plan of care. She is aware that patient is critical at this time requiring mechanical ventilation and blood pressure support. She is also aware that he has had acute kidney injury. I answered all questions Due to a high probability of clinically significant, life threatening deterioration, the patient required my highest level of preparedness to intervene emergently and I personally spent this critical care time directly and personally managing the patient. This critical care time included obtaining a history; alex
--- NOTE | 2023-11-27 10:41 | WPDPROCEDUR ---
Procedures Intubation Intubation Date: 11/27/23 Intubation Time: 07:50 Consent: The patient and the daughter consented for the procedure A pre-procedural Time-Out was completed immediately before starting the procedure and confirmed: Patient Identification, Site, Procedure, Patient Position and the Availability of Requisite Equipment: Yes Sedative: etomidate Paralytic: rocuronium Laryngoscope: fiber optic video scope Assist device used: fiber optic device ET tube size: 8 Tube secured depth (cm): 24 Tube secured location: lips Tube placement confirmation: visualized tube passing through cords, equal breath sounds bilaterally, no breath sounds over epigastrium and confirmation by capnometry Patient tolerated procedure: well Intubation complications: none
--- NOTE | 2023-11-27 10:43 | WPDPROCEDUR ---
Procedures Central Line Placement Right IJ: Central Line Date: 11/27/23 Central Line Time: 08:15 Discussed w/ the patient/family/POA,the placement of a central venous catheter, including its clinical necessity/indication & associated potential risks, benifits and alternatives.: Yes The patient/family/POA understand(s) and acknowledge(s) the need to proceed with central venous catheter insertion as an important element of the patient's clinical management.: Yes Consent: I have discussed with the patient and/or surrogate, the non-emergent placement of a central venous catheter, including its clinical necessity/indication and associated potential risks and complications. The patient and/or surrogate understand(s) and acknowledge(s) the need to proceed with central venous catheter insertion as an important element of the patient's clinical management. Time Out Performed: Yes Patient Position: supine Patient placed on monitor/pulse ox: Yes Provider Prep: mask, sterile gown, sterile gloves, Max. sterile barrier precautions, cap and hand hygiene with conventional soap/water or alcohol based hand rub Central line prep: 2% Chlorhexidine scrub Local anesthesia used: lidocaine 1% Amount of anesthesia used (ml): 3 Sterile US Technique with sterile gel/sterile probe covers: Yes Slovenian: 12 Length (cm): 16 Depth of Insertion (cm): 16 Post Procedure: sutured in place, good blood return, all ports aspirated, flushed, capped, transparent dressing, hemostatic product, antimicrobial product, securement product and aseptic technique maintained throughout procedure Post procedure x-ray: tip of catheter in good position and no pneumothorax seen Complications: none
[2023-11-27 10:51] LABS: Band Neutrophils Percent 37 % (0-6); Lymphocytes Absolute Manual 1.16 K/mm3 (1.1-4.5); Monocytes Absolute Manual 0.38 K/mm3 (0.1-0.90); Monocytes Percent Manual 3 % (3-9); Neutrophils Absolute Manual 11.35 K/mm3 (1.3-6.7); Neutrophils Percent Manual 51 % (46-73); Platelet Estimate Adequate (Adequate); Total Cells Counted 100
[2023-11-27 10:52] LABS: Burr Cells 1+ (NORMAL); Ovalocytes 1+ (NORMAL); Schistocytes None Seen (NORMAL)
[2023-11-27] MEDS: MINERAL OIL/WHITE PETROLATUM OINTMENT 1 APPLIC EACH EYE (10:56)
[2023-11-27] MEDS: PIPERACILLIN/TAZ 2.25G/NS 50ML 2.25 GM/50 ML BAG IVPB (11:00)
[2023-11-27] MEDS: SODIUM BICARBONATE 8.4% 150 MEQ in WATER, STERILE FOR INJECTION 950 ML 100 MEQ IV CONT (11:01)
[2023-11-27 11:23] LABS: Creatine Kinase 370 U/L (55-170)
[2023-11-27 11:26] LABS: NT Pro B Type Natriuretic Pept 2330 pg/mL (19.9-100)
[2023-11-27] MEDS: INSULIN ASPART (*BKC) 100 UNITS/ML SUB-Q (11:38)
[2023-11-27] MEDS: PANTOPRAZOLE SODIUM IV 40 MG VIAL IV PUSH (11:38)
[2023-11-27] MEDS: ALBUTEROL SULFATE NEB 2.5 MG/3 ML INH INHALATION (11:42)
[2023-11-27 11:47] LABS: Glucose Point of Care 229 mg/dl (65-105)
--- NOTE | 2023-11-27 11:52 | PC.NURSE ---
After receiving shift change report this morning, this RN decided to notify the Hospitalist of pt's condition. Hospitalist to bedside to assess pt. Hospitalist notified patient's family of patient's change in condition. Consult to ICU doctor placed. Crop And Soil Technician took over care of patient from Hospitalist. Pt intubated and central line placed for sedation and pressor administration.
[2023-11-27 12:16] LABS: Eosinophil Urine None Seen % (None Seen); Urine Eos QC 2nd Tech Confirmed
[2023-11-27 12:37] LABS: Potassium Urine Random 30.2 meq/L; Sodium Urine Random 97 meq/L
[2023-11-27 13:23] LABS: Reflex Lactic Acid Yes or No Add Lactic
[2023-11-27] MEDS: VASOPRESSIN INJ 100 UNITS in DEXTROSE 5% 95 ML IV CONT (15:18)
[2023-11-27] MEDS: CENTRAL LINE FLUSH 10 ML IV PUSH (15:20)
--- NOTE | 2023-11-27 16:00 | PC.NURSE ---
This RN had noticed a rhythm change on patient's monitor. RN entered room to find patient pale with no carotid pulse able to be palpated. Cynthia Vargas called
[2023-11-27] MEDS: PERFLUTREN LIPID MICROSPHERES 1.5 ML VIAL DILUTED TO 10 ML TOTAL VOLUME IV PUSH (16:05)
--- NOTE | 2023-11-27 16:24 | IVDEFINITY ---
Prior to administration of IV Definity the patient was educated on the risks and benefits of the imaging enhancing agent including potential adverse side effects. The patient verbalized understanding. Allergies were verified. No exclusion criteria were identified and at least one of the following inclusion criteria were met: 1) physician request, 2) patient technically difficult to image (per the [place] [employer] guidelines of two or more segments not discernable within the apical view), or 3) questionable left ventricular function. ?
--- NOTE | 2023-11-27 16:53 | PM.DDS ---
Discharge Summary Date and Time Date of : 11/27/23 Time of : 16:21 Provider Pronounced By: George Lopez NP Probable Cause of Probable Cause of : Septic Shock related to aspiration pneumonia related to stroke 6 weeks ago Summary Hospital Course: This is an 83-year-old male patient admitted to the hospital after vomiting with possible aspiration pneumonia. Patient had an ischemic stroke about 6 weeks ago had been independent prior to that time but has been dependent since then. This morning patient was noted to be in severe metabolic acidosis due to lactic acidosis related to presumed sepsis. He was hypotensive cyanotic and mottled. Patient underwent emergent intubation had central line placed and was placed on vasopressors. This afternoon while he was receiving echocardiogram the vehicle monitor technician began to alarm and patient was found to be in PEA. Cynthia alarcon was called which was attended by myself, SAM Morrow and Dr. Lopez from ER. After CPR patient did have spontaneous ROSC temporarily then went in to regular tachycardic rhythm at 170 which we attempted to cardiovert without success. IV amiodarone was pushed to attempt to convert rhythm but patient went back in to asystole/PEA. Family was present, informed them that the chance of any meaningful recovery after losing heartbeat twice is highly unlikely. Daughter was brought to the bedside with CPR in progress and she stated to stop resuscitation efforts. Efforts were stopped at 4:21 p.m. and patient was pronounced . Additional Data Confirmation of as documented by pronouncing clinician: Pupillary Reflex, Palpable Pulses, Response to Stimuli, Heart Tones and Breath Sounds Family: at bedside Additional persons at bedside: body corporate manager Name of Provider Notified: George Lopez NP Time Provider Notified: 16:21 Was code activated?: Yes Provider Requests Autopsy: No Family Requests Autopsy: No Operator Weapon Locating Radar Notified: Yes Date [facility] Notified of : 11/27/23 Advance directives: No Hospice patient?: No
[2023-12-01 12:56] LABS: Chloride Rand Ur 85 mmol/L (32-290); Chloride/Creatinine Rand Ur 129 (23-275); Creatinine Random Urine 66 mg/dL (20-320)
== END 2023-11-27 16:21 | disposition expired | DRG 871 ==
LOC: ANHED 21:45 → ANHIMU 23:41 → ANHICU 11-27 04:59
PROVIDERS: Internal Medicine; Admitting Provider Internal Medicine; Emergency Provider Emergency Medicine; PCP Internal Medicine; Visit Provider Nurse Practitioner
DX: A41.9 Sepsis, unspecified organism (principal); J69.0 Pneumonitis due to inhalation of food and vomit; J96.01 Acute respiratory failure with hypoxia; R65.21 Severe sepsis with septic shock; J44.1 Chronic obstructive pulmonary disease with (acute) exacerbation; N17.9 Acute kidney failure, unspecified; E87.0 Hyperosmolality and hypernatremia; E87.20 Acidosis, unspecified; N39.0 Urinary tract infection, site not specified; I71.40 Abdominal aortic aneurysm, without rupture, unspecified; E11.51 Type 2 diabetes mellitus with diabetic peripheral angiopathy without gangrene; E55.9 Vitamin D deficiency, unspecified; K21.9 Gastro-esophageal reflux disease without esophagitis; Z20.822 Contact with and (suspected) exposure to COVID-19; Z79.82 Long term (current) use of aspirin; Z79.02 Long term (current) use of antithrombotics/antiplatelets; Z95.820 Peripheral vascular angioplasty status with implants and grafts; Z86.73 Personal history of transient ischemic attack (TIA), and cerebral infarction without residual deficits; Z87.891 Personal history of nicotine dependence
CPT/HCPCS: 31500; 36415; 36600; 71045; 76775; 80048; 80053; 81001; 82375; 82436; 82550; 82570; 82805; 82948; 83050; 83605; 83735; 83880; 84100; 84133; 84300; 85025; 85610; 85730; 85999; 86703; 86803; 87040; 87070; 87086; 87181; 87205; 87340; 87637; 87641; 92950; 93005; 94002; 94640; 96361; 96365; 96367; 96375; 99285; A9270; C8929; C9113; G0378; G0432; J0171; J0282; J1815; J2250; J2543; J3010; J3370; J7030; Q9957